=== PATIENT | male | born 1955 | race American Indian/Alaskan Native ===

== ENCOUNTER 2019-10-09 12:27 | Inpatient (IN) | payer MEDICARE ==
[2019-10-09] MEDS ORDERED: DEXTROSE 50% IN WATER (25GM) 50 ML SYRINGE IV PRN (15:31)
[2019-10-09] MEDS ORDERED: SIMPLE SYRUP 15 ML FEEDTUBE PRN ×2 (15:45)
[2019-10-09] MEDS ORDERED: SODIUM BICARBONATE 325 MG TAB FEEDTUBE PRN (15:45)
[2019-10-09] MEDS ORDERED: LIPASE 10,500/PROTEASE 25,000/AMYLASE 43,750 (UNITS) DR CAP FEEDTUBE PRN (15:45)
[2019-10-09] MEDS ORDERED: ACETAMINOPHEN 325 MG TAB FEEDTUBE PRN (15:50)
[2019-10-09] MEDS ORDERED: hydrALAZINE 20 MG/1 ML INJ IV PRN (15:50)
[2019-10-09] MEDS ORDERED: ALBUTEROL 2.5 MG/3 ML NEBU IH PRN (15:50)
--- NOTE | 2019-10-09 16:27 | History and Physical Report ---
History of Present Illness Date: 10/09/19 Date of admission: 10/09/2019 Chief Complaint: CVA History of present illness: 64-year-old male who presented to [facility] on August 11 with acute onset of left-sided weakness. 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 Alteplase was given on 08/11. He developed delayed cerebral edema and hemorrhagic conversion. CT head showed large right-sided MCA territory infarct with scattered hyperdensities and cerebral edema with midline shift on August 13. August 15 there is an increase to 7 mm from the previous [address] with new petechial hemorrhages. Neurosurgery was consulted and ultimately required a decompressive hemicraniectomy on August 22. He continued to have increased bleeding prompting aspirin to be held on August 25. Patient was transferred from the ICU to neurology general floor on August 27. MRI brain on August 30 showed evolving large right MCA infarct with hemorrhagic transformation. Stable appearing midline shift. Hematoma superficial to craniotomy in the right temporalis muscle. On 08/30 he underwent Ultrasound Doppler venous left upper extremity showed a nonocclusive deep vein thrombosis in the left axillary vein and a thrombus within the superficial basilic vein. Ultrasound Doppler venous left lower extremity showed chronic DVT of the left common femoral vein on 09/04 for which an IVC filter was placed on September 06. PEG was placed on September 10 due to poor oral intake and dysphasia. EKG and telemetry monitoring showed paroxysmal atrial fibrillation. TTE showed an ejection fraction of 50 to 55% with severely dilated left atrium and impaired left ventricle relaxation. Patient was tolerating a bolus tube feed diet of Nutren 1.5 max of 5 cans/day with free water flushes 100 mils before and after each feed if the patient ate less than 25% bolus 2 cans, 50% bolus 1 can, greater than 50% no bolus. Stroke labs at outside hospital A1c 7.1, TSH 1.375, total cholesterol 198, LDL 132, RPR nonreactive, INR 1.1. Patient was transition to Eliquis as a secondary stroke prevention and anticoagulation for atrial fibrillation. He was taken off of aspirin due to risk of bleeding prior to leaving the hospital and going to the senior care facility. The physicians at the hospital also made recommendation for considering a watchman device as an outpatient. 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 After the patient was stabilized he was transferred to subacute rehabilitation. Family visited our inpatient rehabilitation and was unhappy with his lack of progress at subacute and noted that he has been participating more with therapy but do not feel like he is getting the amount of therapy that he could truly benefit from. After discussion with the family as well as the facility and review of the past we opted to accept the patient to give him an opportunity to participate in a more intensive therapy schedule. Several discussions had with family on final disposition and ensuring that he would be going home regardless of how much recovery we were able to make. Patient was transferred to us from a subacute rehab where he has been since September 20. After the patient was medically stabilized they were transferred for further rehabilitation. All available medical records have been reviewed. Plan of care, prognosis, expectations, secondary stroke prevention, discharge planning was discussed with patient and family (2 daughters). Day prior to admission 48 minutes were spent reviewing all available records from the outside hospital as well as the senior care facility in preparation for transfer of the patient to acute inpatient rehabilitation. Past History Past Medical History: atrial fib, anemia, diabetes, DVT, hypertension, hyperlipidemia, stroke (Right MCA with hemorrhagic transformation, embolic), other (Dysphasia) Past Surgical History: hernia repair Social history: , lives with family, full code. denies: smoking, alcohol abuse, prescription drug abuse Family history: hypertension Medications and Allergies Allergies Allergy/AdvReac Type Severity Reaction Status Date / Time No Known Allergies Allergy Unverified 10/09/19 12:33 Active Meds: Active Medications Acetaminophen (Tylenol) 650 mg FEEDTUBE Q6H PRN PRN Reason: Non Cardiac Pain or Temp>100.5 Albuterol (Proventil) 2.5 mg IH Q4HRT PRN PRN Reason: Shortness Of Breath Amantadine HCl (Symmetrel) 100 mg FEEDTUBE BIDBL RHIANNON Amlodipine Besylate (Amlodipine) 10 mg FEEDTUBE QDAY RHIANNON Lipase/Protease/Amylase ([place] Dr 10,500 Unit) 1 each FEEDTUBE PRN PRN PRN Reason: For Clogged Feeding Tube Apixaban (Eliquis) 5 mg FEEDTUBE Q12HR RHIANNON; Protocol Atorvastatin Calcium (Lipitor) 80 mg FEEDTUBE QHS RHIANNON Bisacodyl (Dulcolax) 10 mg [place] QDAY PRN PRN Reason: Constipation Carvedilol (Coreg) 6.25 mg FEEDTUBE BID RHIANNON Dextrose (D50w (25gm) Syringe) 50 ml IV Q30MIN PRN; Protocol PRN Reason: Hypoglycemia Famotidine (Pepcid) 20 mg FEEDTUBE BID RHIANNON Hydralazine HCl (Apresoline) 10 mg IV Q4HR PRN PRN Reason: Hypertension Hydralazine HCl (Apresoline) 100 mg FEEDTUBE TID RHIANNON Insulin Glargine (Lantus) 10 units SUB-Q QHS RHIANNON Insulin Human Lispro (Humalog) 0 unit SUB-Q ACHS RHIANNON; Protocol Lisinopril (Zestril) 40 mg FEEDTUBE QDAY RHIANNON Melatonin (Melatonin) 5 mg PO QHS RHIANNON Mirtazapine (Remeron) 15 mg FEEDTUBE QHS RHIANNON Ondansetron HCl (Zofran Odt) 4 mg PO Q8H PRN PRN Reason: Nausea And Vomiting Polyethylene Glycol (Miralax 3350) 17 gm FEEDTUBE QDAY PRN PRN Reason: Constipation Simple Syrup (Simple Syrup) 15 ml FEEDTUBE PRN PRN PRN Reason: Hypoglycemia Simple Syrup (Simple Syrup) 30 ml FEEDTUBE PRN PRN PRN Reason: Hypoglycemia Sodium Bicarbonate (Sodium Bicarbonate) 325 mg FEEDTUBE PRN PRN PRN Reason: For Clogged Feeding Tube Tramadol HCl (Ultram) 50 mg FEEDTUBE Q6H PRN PRN Reason: Pain, Moderate (4-6) Review of Systems All systems: negative (ROS negative for 12 systems except as noted below with pertinent positives and negatives.) Constitutional: poor appetite Eyes: left: loss of vision (Chronic) Ears, nose, mouth and throat: dysphagia, no decreased hearing Cardiovascular: no chest pain, no palpitations, no rapid/irregular heart beat, no edema Respiratory: no cough, no shortness of breath Gastrointestinal: other (PEG tube), no abdominal pain, no nausea, no vomiting, no diarrhea, no constipation Musculoskeletal: limitation of motion, gait dysfunction Integumentary: no rash, no pruritis, no sores Neurological: parathesias, change in speech (slowed), balance difficulties, gait dysfunction, loss of vision, paralysis Psychiatric: change in sleep habits, disorientation (intermittent), no anxiety Exam - Exam Narrative exam: MUSCULOSKELETAL SPECIALTY EXAM CONSTITUTIONAL: Well developed, well nourished, appropriately groomed. LEFT hand dominant. LYMPHATIC: No appreciable abnormalities palpable in neck Head: Right craniectomy site sunken with mild dependent swelling at the base, soft RESPIRATORY: Clear to auscultation bilaterally, no increased work of breathing CARDIOVASCULAR: Regular Rate/ Rhythm, no swelling, edema or tenderness in BUE or BLE. Pulses palpable in all extremities. All extremities warm. GI: + bowel sounds, soft, NTTP, nondistended. PEG tube present INTEGUMENTARY: Normal, no lesion, rash, masses or bruising noted in extremities. MUSCULOSKELETAL: Left shoulder subluxation, otherwise BUE and BLE normal without defect, crepitus, subluxation, effusion, arthritic changes or TTP. R 4+/5 L 0/5 ROM decreased on left, normal on right Tone flaccid on left, normal on right NEURO: CN II : Right visual colmenares full to confrontation, left blind CN II, III : PERRL on the right CN III, IV, : EOMI on the right but right eye does preferentially veer towards the lateral aspect CN V : Facial sensation intact decreased on left CN VII : Slight left facial droop CN VIII : Hearing intact to finger rustle CN IX, X : Palate/uvula elevate midline, phonation normal CN XI : Left shoulder shrug absent CN XII : Tongue protrudes midline Sensation impaired on left with extinction, normal on right Reflexes 2+ on right and 3+ on left at biceps, brachioradialis and patella. Cl onus at the left ankle 4 beats. Coordination intact in right upper extremity no dysmetria noted, unable to test left upper extremity due to weakness. No tremor noted in 4 extremities. Naming and repetition intact. Follows 2 step commands. Aphasia not appreciated Dysarthria not appreciated Dysphagia present Neglect to left side with activity, right gaze preference. Does recognize the left and address it, just can not attend to it. POSTURE and GAIT: Sitting posture okay. Balance and gait deferred until seen with therapy. PSYCH: Alert, oriented x3, affect appears flattened. Insight appears mostly intact. - Labs CBC & Chem 7: 10/10/19 07:28 10/10/19 07:28 Assessment and Plan Assessment and plan: Patient was assessed and evaluated for Acute Inpatient Rehab Unit. Due to the patients above-mentioned medical complexity, along with decreased functional mobility and self care, this patient continues to require and be appropriate for a comprehensive, multidisciplinary [id number] rehabilitation program. These needs cannot be met in an outpatient or other less intensive setting. The patient would continue to benefit from skilled therapy intervention for at least 3 hours per day, five days a week, with techniques specific to the needs of the patient to improve function, activities of daily living, and reintegration into the community. The patient continues to require: -- OT to improve ROM, self-care, and learn use of adaptive equipment -- PT to improve strength and balance, functional transfers, and ambulation with energy conservation techniques to improve functional mobility -- SOAP BOILER to address cognitive deficits and swallowing ability -- 24 hour RN to ensure and prevent skin breakdown, promote progressive independence while ensuring safety, ensure education regarding medications, and incorporation of the rehabilitation at the bedside -- 24 hour Support Dba to coordinate this interdisciplinary program, and to manage/prevent complications as a result of the patients medical comorbidities. -Plan of care by day 4 -Weekly team conferences With such a program, there is a reasonable certainty that the goals individualized for this patient can be achieved within the specified length of stay. 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 Continue secondary stroke prevention (antithrombotic, statin (goal LDLC <70), BP control (goal less than 140/90), GLU control (goal A1c <7), and lifestyle modification). Monitor for recurrent stroke or post-stroke recrudescence. Continue neuromotor therapy as above. Family training when available. Monitor for post-stroke depression, cognitive deficits, seizure, dysphagia, aphasia, shoulder-hand syndrome, sensory deficits, spasticity, bowel/bladder deficits, sleep disturbance, vision deficits, pressure sores and DVT. Prognosis for recovery and secondary stroke prevention discussed with patient and family. Follow-up with neurology. No driving until cleared by neurologist. Paroxysmal atrial fibrillation: Continue rate control and anticoagulation. Adjust medications as needed. Monitor for palpitations, dyspnea, lightheadedness, chest pain, fatigue. EKG as needed. Diastolic dysfunction: Monitor for any exacerbation of diastolic dysfunction. Hypertension: Continue medications. Monitor blood pressure every 4 hours while awake. Adjust medications as needed for normotension and hold for hypotension. Diabetes type 2: Continue current diet. Monitor blood glucose before meals and at bedtime. Sliding scale insulin. Adjust medications as needed for normoglycemia. Skin checks per nursing to identify any new wounds. Left upper extremity and left lower extremity DVT: Continue Eliquis. Monitor for any signs of worsening condition. Patient does have a IVC filter installed as well. Dysphagia: Eating all meals and not taking any PEG tubes currently only thing through the PEG is medication. Continue current diet. SOAP BOILER to monitor and advance diet as able, and perform FEES, MBSS or e-stim as needed. Shoulder subluxation: Continue strengthening exercises for improvement of shoulder subluxation. Arm tray while in wheelchair. Prop the arm on pillows including hand for elevation while in bed. Consider kinesiotaping and/or e- stim. Cognition: Continue amantadine at breakfast as well as lunch. Patient was previously getting this every 12 hours we should see a little bit better tolerance for it scheduled appropriately. Monitor for improvement. Supportive care and therapy. Family involvement as available. Continue reminders throughout therapy and the day to ensure patient safety. Altered sensation on the left: Monitor for skin wounds. Improve patient's ability to self monitor placement of limbs to avoid injury. Medication as needed for painful paresthesias. Poor nutritional intake: Check nutrition labs including pre-albumin. Monitor oral intake and weights. Patient is on appetite stimulant, continue Remeron. Right craniectomy: Currently sunken with very slight CSF collection at the base of the craniectomy. Monitor for any changes in volume and notified neurosurgeon if this occurs. Helmet on anytime out of bed. When out of bed with helmet on need to monitor periodically for swelling. ADL dysfunction: OT will work on improving ability to perform ADLs (including assistive devices) to increase independence and decrease caregiver burden and improve functional transfers and mobility training. Difficulty walking: PT will work on gait training and proper use of assistive devices and advance as appropriate to use of stairs and outside ambulation on uneven surfaces. Unsteadiness on feet: PT will work on improving static and dynamic sitting and standing balance as well as proper use of assistive devices to decrease risk of falls. Abnormality of gait: PT will work to improve safety and efficiency of gait through neuromotor training and gait training along with instruction on proper use of assistive devices. Muscle weakness: PT & OT will work on strengthening exercises to improve functional strength including mixture of closed and open kinetic chain exercises. Debility: PT & OT will work on improving overall functional status to improve participation with ADLs, mobility and social involvement. Fatigue: PT & OT will work on improving endurance through aerobic exercises and therapeutic activity while monitoring patients tolerance for activity and vital signs as needed. DVT ppx: Eliquis for atrial fibrillation Pain: Continue physical modalities in therapy and pain medications as needed to achieve functional pain control. Sleep: Monitor and address as needed. Melatonin Bowel: Monitor and address as needed. Appetite: Monitor and address as needed. Mirtazapine Discharge planning: Pending therapy progress and care plan meeting. Will continue discussion with therapy team, SW, patient and family. Restrictions/ Precautions: Falls, craniectomy (helmet on when out of bed), low bed, decreased sensation on left WB status: FWB Functional Hx: ADLs: Independent Cognition: Independent Mobility: No AD Barriers to Discharge: Decreased mobility and ability to perform self care, balance deficits, weakness, craniectomy, left dominant hemiplegia, dysphagia Estimated Length of Stay: 1421 days Discharge Destination: Home with family POST ADMISSION PHYSICIAN EVALUATION I have examined the patient and find that functional status, medical condition and appropriateness for [facility] admission are essentially unchanged from those described in the preadmission screening. Will monitor for worsening neurologic function, excessive CSF collection, CSF leak, infection, dysphagia, shoulder- hand syndrome, shoulder subluxation, spasticity, left neglect, cognitive changes, DVT/PE, bowel and bladder complications and complications due to atrial fibrillation, hypertension, diabetes, and electrolyte abnormalities. Will attempt to avoid occurrence of these issues or treat them if they present themselves.
[2019-10-09] MEDS: APIXABAN 5 MG TAB FEEDTUBE SCH (22:15)
[2019-10-09] MEDS: FAMOTIDINE 20 MG TAB FEEDTUBE SCH (22:15)
[2019-10-09] MEDS: MELATONIN 5 MG TAB PO SCH (22:15)
[2019-10-09] MEDS: INSULIN GLARGINE 100 UNITS/ML SUB-Q SCH (22:16)
[2019-10-09] MEDS: carvediloL 6.25 MG TAB FEEDTUBE SCH (22:17)
[2019-10-09] MEDS: INSULIN LISPRO 100 UNIT/ML SUB-Q SCH ×2 (22:18→23:42)
[2019-10-09] MEDS: hydrALAZINE 100 MG TAB FEEDTUBE SCH (22:18)
[2019-10-09] MEDS: MIRTAZAPINE 15 MG TAB FEEDTUBE SCH (22:53)
[2019-10-10] MEDS: POLYETHYLENE GLYCOL 3350 17 GM POWDER FEEDTUBE PRN (04:51)
[2019-10-10] MEDS: INSULIN LISPRO 100 UNIT/ML SUB-Q SCH ×4 (07:59→23:03)
[2019-10-10 08:49] LABS: Basophils % (Auto) 0.6 % (0.0-1.8); Eosinophils # (Auto) 0.5 K/mm3 (0.0-0.4); Eosinophils % (Auto) 7.9 % (0.0-4.3); Hematocrit 38.7 % (35.5-45.6); Hemoglobin 12.6 gm/dl (11.8-15.2); Lymphocytes # (Auto) 1.4 K/mm3 (1.2-5.4); Lymphocytes % (Auto) 21.8 % (13.4-35.0); Mean Corpuscular HGB Conc 32 % (32-34); Mean Corpuscular Volume 76 fl (84-94); Monocytes # (Auto) 0.6 K/mm3 (0.0-0.8); Monocytes % (Auto) 10.3 % (0.0-7.3); Platelet Count 224 K/mm3 (140-440); Red Blood Count 5.07 M/mm3 (3.65-5.03)
[2019-10-10 09:05] LABS: Alanine Aminotransferase 15 units/L (7-56); Albumin 3.4 g/dL (3.9-5); BUN/Creatinine Ratio 16; Blood Urea Nitrogen 16 mg/dL (9-20); Calcium 9.6 mg/dL (8.4-10.2); Hemolysis Index 1
[2019-10-10 09:08] LABS: Prealbumin 0.211 g/L (0.200-0.400)
[2019-10-10] MEDS: AMANTADINE FEEDTUBE SCH ×2 (09:12→13:50)
[2019-10-10] MEDS: hydrALAZINE 100 MG TAB FEEDTUBE SCH ×3 (09:50→23:05)
[2019-10-10] MEDS: carvediloL 6.25 MG TAB FEEDTUBE SCH ×2 (10:01→23:00)
[2019-10-10] MEDS: LISINOPRIL 40 MG TAB FEEDTUBE SCH (11:00)
[2019-10-10] MEDS: FAMOTIDINE 20 MG TAB FEEDTUBE SCH ×2 (11:00→22:59)
[2019-10-10] MEDS: APIXABAN 5 MG TAB FEEDTUBE SCH ×2 (11:30→23:00)
[2019-10-10] MEDS: amLODIPine 10 MG TAB FEEDTUBE SCH (11:55)
--- NOTE | 2019-10-10 16:14 | Progress Note ---
Subjective Date of service: 10/10/19 Principal diagnosis: CVA Interval history: 64-year-old male who presented to [facility] on August 11 with acute onset of left-sided weakness. 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 Alteplase was given on 08/11. He developed delayed cerebral edema and hemorrhagic conversion. CT head showed large right-sided MCA territory infarct with scattered hyperdensities and cerebral edema with midline shift on August 13. August 15 there is an increase to 7 mm from the previous [address] with new petechial hemorrhages. Neurosurgery was consulted and ultimately required a decompressive hemicraniectomy on August 22. He continued to have increased bleeding prompting aspirin to be held on August 25. Patient was transferred from the ICU to neurology general floor on August 27. MRI brain on August 30 showed evolving large right MCA infarct with hemorrhagic transformation. Stable appearing midline shift. Hematoma superficial to craniotomy in the right temporalis muscle. On 08/30 he underwent Ultrasound Doppler venous left upper extremity showed a nonocclusive deep vein thrombosis in the left axillary vein and a thrombus within the superficial basilic vein. Ultrasound Doppler venous left lower extremity showed chronic DVT of the left common femoral vein on 09/04 for which an IVC filter was placed on September 06. PEG was placed on September 10 due to poor oral intake and dysphasia. EKG and telemetry monitoring showed paroxysmal atrial fibrillation. TTE showed an ejection fraction of 50 to 55% with severely dilated left atrium and impaired left ventricle relaxation. Patient was tolerating a bolus tube feed diet of Nutren 1.5 max of 5 cans/day with free water flushes 100 mils before and after each feed if the patient ate less than 25% bolus 2 cans, 50% bolus 1 can, greater than 50% no bolus. Stroke labs at outside hospital A1c 7.1, TSH 1.375, total cholesterol 198, LDL 132, RPR nonreactive, INR 1.1. Patient was transition to Eliquis as a secondary stroke prevention and anticoagulation for atrial fibrillation. He was taken off of aspirin due to risk of bleeding prior to leaving the hospital and going to the snf facility. The physicians at the hospital also made recommendation for considering a watchman device as an outpatient. 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 After the patient was stabilized he was transferred to subacute rehabilitation. Family visited our inpatient rehabilitation and was unhappy with his lack of progress at subacute and noted that he has been participating more with therapy but do not feel like he is getting the amount of therapy that he could truly benefit from. After discussion with the family as well as the facility and review of the past we opted to accept the patient to give him an opportunity to participate in a more intensive therapy schedule. Several discussions had with family on final disposition and ensuring that he would be going home regardless of how much recovery we were able to make. Patient was transferred to us from a subacute rehab where he has been since September 20. After the patient was medically stabilized they were transferred for further rehabilitation. All available medical records have been reviewed. Plan of care, prognosis, expectations, secondary stroke prevention, discharge planning was discussed with patient and family (2 daughters). Day prior to admission 48 minutes were spent reviewing all available records from the outside hospital as well as the snf facility in preparation for transfer of the patient to acute inpatient rehabilitation. Interval history: Patient is participating in therapy and making reasonable progress. Taking rest breaks as needed. +BM. Denies pain, palpitations, dyspnea, cough, N/V, or joint pain. CVA: Patient making slow progress with therapy. Was able to tolerate sitting up for prolonged period yesterday however did push back on this. Continue to monitor for worsening neurologic function. Continue secondary stroke prevention. No change in hemiplegia, no spasticity, no change in dysphagia. Hemicraniectomy: Sunken, helmet on when out of bed, well-healed continue to monitor Paroxysmal atrial fibrillation: Denies palpitations, rate controlled, tolerating anticoagulation. Continue to monitor Hypertension: Blood pressures been in a good range. Continue to monitor Diabetes: Glucose checks have been less than 200. Continue to monitor and adjust insulin as needed based on oral intake. Anemia: Microcytic, folate decreased, replace folate iron and vitamin C and monitor for improvement. Nutrition: Patient is eating fairly well. Nutrition put in tube feeding orders even though I DC'd them because the patient is eating. We will continue to monitor and continue appetite stimulant. Cognition: Continue amantadine and monitor for improvement. All records, vitals, labs and medications were reviewed. No other issues per patient, nursing or therapy. Patient discussed in team conference. Fairly decent for his first day, little resistant to performing therapy at least verbally. In the end he did participate and we will continue to push for as much progress as we can get. Discussed with family and the patient on day of admission that since we are 2 months out from the initial CVA that we may not see a huge improvement in his return of function on the left side however we will push to get him as independent as possible for transfers and ADLs in order to reduce caregiver burden once they take him home. Length of stay will vary depending upon his improvement and recovery. Looking at 14 to 21 days currently Objective - Exam Narrative Exam: MUSCULOSKELETAL SPECIALTY EXAM CONSTITUTIONAL: Well developed, well nourished, appropriately groomed. LEFT hand dominant. Head: Right craniectomy site sunken with mild dependent swelling at the base, soft RESPIRATORY: Clear to auscultation bilaterally, no increased work of breathing CARDIOVASCULAR: Regular Rate/ Rhythm, no swelling, edema or tenderness in BUE or BLE. All extremities warm. GI: + bowel sounds, soft, NTTP, nondistended. PEG tube present INTEGUMENTARY: Normal, no lesion, rash, masses or bruising noted in extremities. MUSCULOSKELETAL: Left shoulder subluxation, otherwise BUE and BLE normal without defect, crepitus, subluxation, effusion, arthritic changes or TTP. R 4+/5 L 0/5 ROM decreased on left, normal on right Tone flaccid on left, normal on right NEURO: CN II : Right visual colmenares full to confrontation, left blind CN III, IV, : EOMI on the right but right eye does preferentially veer towards the lateral aspect CN V : Facial sensation intact decreased on left CN VII : Slight left facial droop CN XI : Left shoulder shrug absent Sensation impaired on left with extinction, normal on right No tremor noted in 4 extremities. Naming and repetition intact. Follows 2 step commands. Aphasia not appreciated Dysarthria not appreciated Dysphagia present Neglect to left side with activity, right gaze preference. Does recognize the left and address it, just can not attend to it. POSTURE and GAIT: Sitting posture okay. Balance and gait deferred until seen with therapy. PSYCH: Alert, oriented x3, affect appears flattened. Insight appears mostly intact. - Constitutional Vitals: Vital Signs - 12hr 10/10/19 10/10/19 10/10/19 04:54 04:55 07:16 Temperature 98.5 F 98 F Pulse Rate 68 67 72 Respiratory 18 18 Rate Blood Pressure 135/73 Blood Pressure 167/86 [Left] O2 Sat by Pulse 97 97 95 Oximetry 10/10/19 10/10/19 10/10/19 10:30 15:00 15:14 Temperature 98.4 F 97.0 F L Pulse Rate 83 Respiratory 16 22 Rate Blood Pressure 148/81 Blood Pressure 132/75 148/81 [Left] O2 Sat by Pulse 96 Oximetry - Allied health notes Allied health notes reviewed: nursing, PT, ST, OT - Labs CBC & Chem 7: 10/10/19 07:28 10/10/19 07:28 Labs: Laboratory Results - last 72 hr 10/09/19 10/10/19 10/10/19 21:20 07:14 07:28 WBC 6.2 RBC 5.07 H Hgb 12.6 Hct 38.7 MCV 76 L MCH 25 L MCHC 32 RDW 16.0 H Plt Count 224 Lymph % (Auto) 21.8 Harding % (Auto) 10.3 H Eos % (Auto) 7.9 H Baso % (Auto) 0.6 Lymph # 1.4 Harding # 0.6 Eos # 0.5 H Baso # 0.0 Seg Neutrophils % 59.4 Seg Neutrophils # 3.7 Sodium Potassium Chloride Carbon Dioxide Anion Gap BUN Creatinine Estimated GFR BUN/Creatinine Ratio Glucose POC Glucose 125 H 152 H Calcium Phosphorus Magnesium Iron TIBC Ferritin Total Bilirubin AST ALT Alkaline Phosphatase Total Protein Albumin Albumin/Globulin Ratio Prealbumin Vitamin B12 Folate 10/10/19 10/10/19 10/10/19 07:28 07:28 07:28 WBC RBC Hgb Hct MCV MCH MCHC RDW Plt Count Lymph % (Auto) Harding % (Auto) Eos % (Auto) Baso % (Auto) Lymph # Harding # Eos # Baso # Seg Neutrophils % Seg Neutrophils # Sodium 139 Potassium 3.8 Chloride 98.3 Carbon Dioxide 24 Anion Gap 21 BUN 16 Creatinine 1.0 Estimated GFR > 60 BUN/Creatinine Ratio 16 Glucose 149 H POC Glucose Calcium 9.6 Phosphorus 4.30 Magnesium 1.90 Iron 36 L TIBC 206 L Ferritin 101.3 Total Bilirubin 0.40 AST 9 ALT 15 Alkaline Phosphatase 69 Total Protein 6.8 Albumin 3.4 L Albumin/Globulin Ratio 1.0 Prealbumin 0.211 Vitamin B12 Folate 10/10/19 10/10/19 10/10/19 07:28 07:28 11:44 WBC RBC Hgb Hct MCV MCH MCHC RDW Plt Count Lymph % (Auto) Harding % (Auto) Eos % (Auto) Baso % (Auto) Lymph # Harding # Eos # Baso # Seg Neutrophils % Seg Neutrophils # Sodium Potassium Chloride Carbon Dioxide Anion Gap BUN Creatinine Estimated GFR BUN/Creatinine Ratio Glucose POC Glucose 183 H Calcium Phosphorus Magnesium Iron TIBC Ferritin Total Bilirubin AST ALT Alkaline Phosphatase Total Protein Albumin Albumin/Globulin Ratio Prealbumin Vitamin B12 945.1 H Folate 6.66 L Assessment and Plan CVA, MCA, embolic with hemorrhagic conversion left dominant hemiplegia: Flaccid left side. Continue secondary stroke prevention (antithrombotic, statin (goal LDLC <70), BP control (goal less than 140/90), GLU control (goal A1c <7), and lifestyle modification). Monitor for recurrent stroke or post-stroke recrudescence. Continue neuromotor therapy as above. Family training when available. Monitor for post-stroke depression, cognitive deficits, seizure, dysphagia, aphasia, shoulder-hand syndrome, sensory deficits, spasticity, bowel/bladder deficits, sleep disturbance, vision deficits, pressure sores and DVT. Prognosis for recovery and secondary stroke prevention discussed with patient and family. Follow-up with neurology. No driving until cleared by neurologist. Paroxysmal atrial fibrillation: Continue rate control and anticoagulation. Adjust medications as needed. Monitor for palpitations, dyspnea, lighthea dedness, chest pain, fatigue. EKG as needed. Diastolic dysfunction: Monitor for any exacerbation of diastolic dysfunction. Hypertension: Continue medications. Monitor blood pressure every 4 hours while awake. Adjust medications as needed for normotension and hold for hypotension. Diabetes type 2: Continue current diet. Monitor blood glucose before meals and at bedtime. Sliding scale insulin. Adjust medications as needed for normoglycemia. Skin checks per nursing to identify any new wounds. Left upper extremity and left lower extremity DVT: Continue Eliquis. Monitor for any signs of worsening condition. Patient does have a IVC filter installed as well. Dysphagia: Eating all meals and not taking any PEG tubes currently only thing through the PEG is medication. Continue current diet. SHAPE HAND to monitor and advance diet as able, and perform FEES, MBSS or e-stim as needed. Shoulder subluxation: Continue strengthening exercises for improvement of shoulder subluxation. Arm tray while in wheelchair. Prop the arm on pillows including hand for elevation while in bed. Consider kinesiotaping and/or e- stim. Anemia: Microcytic. Replace iron, folate, vitamin C. Cognition: Continue amantadine at breakfast as well as lunch. Patient was previously getting this every 12 hours we should see a little bit better tolerance for it scheduled appropriately. Monitor for improvement. Supportive care and therapy. Family involvement as available. Continue reminders throughout therapy and the day to ensure patient safety. Altered sensation on the left: Monitor for skin wounds. Improve patient's ability to self monitor placement of limbs to avoid injury. Medication as needed for painful paresthesias. Poor nutritional intake: Check nutrition labs including pre-albumin. Monitor oral intake and weights. Patient is on appetite stimulant, continue Remeron. Right craniectomy: Currently sunken with very slight CSF collection at the base of the craniectomy. Monitor for any changes in volume and notified neurosurgeon if this occurs. Helmet on anytime out of bed. When out of bed with helmet on need to monitor periodically for swelling. ADL dysfunction: OT will work on improving ability to perform ADLs (including assistive devices) to increase independence and decrease caregiver burden and improve functional transfers and mobility training. Difficulty walking: PT will work on gait training and proper use of assistive devices and advance as appropriate to use of stairs and outside ambulation on uneven surfaces. Unsteadiness on feet: PT will work on improving static and dynamic sitting and standing balance as well as proper use of assistive devices to decrease risk of falls. Abnormality of gait: PT will work to improve safety and efficiency of gait through neuromotor training and gait training along with instruction on proper use of assistive devices. Muscle weakness: PT & OT will work on strengthening exercises to improve functional strength including mixture of closed and open kinetic chain exercises. Debility: PT & OT will work on improving overall functional status to improve participation with ADLs, mobility and social involvement. Fatigue: PT & OT will work on improving endurance through aerobic exercises and therapeutic activity while monitoring patients tolerance for activity and vital signs as needed. DVT ppx: Eliquis for atrial fibrillation Pain: Continue physical modalities in therapy and pain medications as needed to achieve functional pain control. Sleep: Monitor and address as needed. Melatonin Bowel: Monitor and address as needed. Appetite: Monitor and address as needed. Mirtazapine Discharge planning: Pending therapy progress and care plan meeting. Will continue discussion with therapy team, SW, patient and family. Restrictions/ Precautions: Falls, craniectomy (helmet on when out of bed), low bed, decreased sensation on left WB status: FWB Functional Hx: ADLs: Independent Cognition: Independent Mobility: No AD Barriers to Discharge: Decreased mobility and ability to perform self care, balance deficits, weakness, craniectomy, left dominant hemiplegia, dysphagia Estimated Length of Stay: 1421 days Discharge Destination: Home with family
[2019-10-10] MEDS: MIRTAZAPINE 15 MG TAB FEEDTUBE SCH (22:59)
[2019-10-10] MEDS: MELATONIN 5 MG TAB PO SCH (22:59)
[2019-10-10] MEDS: FERROUS SULFATE 325 MG TAB PO SCH (22:59)
[2019-10-10] MEDS: ASCORBIC ACID 500 MG TAB PO SCH (22:59)
[2019-10-10] MEDS: INSULIN GLARGINE 100 UNITS/ML SUB-Q SCH (23:01)
[2019-10-11] MEDS: INSULIN LISPRO 100 UNIT/ML SUB-Q SCH ×4 (08:35→21:59)
[2019-10-11] MEDS: ASCORBIC ACID 500 MG TAB PO SCH ×2 (08:46→21:57)
[2019-10-11] MEDS: carvediloL 6.25 MG TAB FEEDTUBE SCH ×2 (08:46→22:25)
[2019-10-11] MEDS: FERROUS SULFATE 325 MG TAB PO SCH ×2 (08:46→21:57)
[2019-10-11] MEDS: amLODIPine 10 MG TAB FEEDTUBE SCH (08:46)
[2019-10-11] MEDS: APIXABAN 5 MG TAB FEEDTUBE SCH ×3 (08:47→21:57)
[2019-10-11] MEDS: FAMOTIDINE 20 MG TAB FEEDTUBE SCH ×2 (08:47→21:57)
[2019-10-11] MEDS: hydrALAZINE 100 MG TAB FEEDTUBE SCH ×3 (08:47→22:25)
[2019-10-11] MEDS: AMANTADINE FEEDTUBE SCH ×2 (08:47→13:33)
[2019-10-11] MEDS: FOLIC ACID 1 MG TAB PO SCH (08:47)
[2019-10-11] MEDS: LISINOPRIL 40 MG TAB FEEDTUBE SCH (08:47)
--- NOTE | 2019-10-11 11:25 | Progress Note ---
Subjective Date of service: 10/11/19 Principal diagnosis: CVA Interval history: 64-year-old male who presented to [facility] on August 11 with acute onset of left-sided weakness. 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 Alteplase was given on 08/11. He developed delayed cerebral edema and hemorrhagic conversion. CT head showed large right-sided MCA territory infarct with scattered hyperdensities and cerebral edema with midline shift on August 13. August 15 there is an increase to 7 mm from the previous [address] with new petechial hemorrhages. Neurosurgery was consulted and ultimately required a decompressive hemicraniectomy on August 22. He continued to have increased bleeding prompting aspirin to be held on August 25. Patient was transferred from the ICU to neurology general floor on August 27. MRI brain on August 30 showed evolving large right MCA infarct with hemorrhagic transformation. Stable appearing midline shift. Hematoma superficial to craniotomy in the right temporalis muscle. On 08/30 he underwent Ultrasound Doppler venous left upper extremity showed a nonocclusive deep vein thrombosis in the left axillary vein and a thrombus within the superficial basilic vein. Ultrasound Doppler venous left lower extremity showed chronic DVT of the left common femoral vein on 09/04 for which an IVC filter was placed on September 06. PEG was placed on September 10 due to poor oral intake and dysphasia. EKG and telemetry monitoring showed paroxysmal atrial fibrillation. TTE showed an ejection fraction of 50 to 55% with severely dilated left atrium and impaired left ventricle relaxation. Patient was tolerating a bolus tube feed diet of Nutren 1.5 max of 5 cans/day with free water flushes 100 mils before and after each feed if the patient ate less than 25% bolus 2 cans, 50% bolus 1 can, greater than 50% no bolus. Stroke labs at outside hospital A1c 7.1, TSH 1.375, total cholesterol 198, LDL 132, RPR nonreactive, INR 1.1. Patient was transition to Eliquis as a secondary stroke prevention and anticoagulation for atrial fibrillation. He was taken off of aspirin due to risk of bleeding prior to leaving the hospital and going to the halfway facility. The physicians at the hospital also made recommendation for considering a watchman device as an outpatient. 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 After the patient was stabilized he was transferred to subacute rehabilitation. Family visited our inpatient rehabilitation and was unhappy with his lack of progress at subacute and noted that he has been participating more with therapy but do not feel like he is getting the amount of therapy that he could truly benefit from. After discussion with the family as well as the facility and review of the past we opted to accept the patient to give him an opportunity to participate in a more intensive therapy schedule. Several discussions had with family on final disposition and ensuring that he would be going home regardless of how much recovery we were able to make. Patient was transferred to us from a subacute rehab where he has been since September 20. After the patient was medically stabilized they were transferred for further rehabilitation. All available medical records have been reviewed. Plan of care, prognosis, expectations, secondary stroke prevention, discharge planning was discussed with patient and family (2 daughters). Day prior to admission 48 minutes were spent reviewing all available records from the outside hospital as well as the halfway facility in preparation for transfer of the patient to acute inpatient rehabilitation. Interval history: Patient is participating in therapy and making reasonable progress. Taking rest breaks as needed. +BM. Denies pain, palpitations, dyspnea, cough, N/V, or joint pain. CVA: Patient making progress with therapy. Continue to monitor for worsening neurologic function. Continue secondary stroke prevention. No change in hemiplegia, no spasticity, no change in dysphagia. Hemicraniectomy: Sunken, helmet on when out of bed, well-healed continue to monitor Paroxysmal atrial fibrillation: Denies palpitations, rate controlled, tolerating anticoagulation. Continue to monitor Hypertension: Blood pressures been in a good range. Continue to monitor Diabetes: Glucose checks have been less than 200. Continue to monitor and adjust insulin as needed based on oral intake. Anemia: Hemoglobin level has normalized, however he is still microcytic, folate decreased, replace folate iron and vitamin C and monitor for improvement. Nutrition: Patient is eating fairly well. We will continue to monitor and continue appetite stimulant. Cognition: Continue amantadine and monitor for improvement. All records, vitals, labs and medications were reviewed. No other issues per patient, nursing or therapy. Objective - Exam Narrative Exam: MUSCULOSKELETAL SPECIALTY EXAM CONSTITUTIONAL: Well developed, well nourished, appropriately groomed. LEFT hand dominant. Head: Right craniectomy site sunken with mild dependent swelling at the base, soft RESPIRATORY: Clear to auscultation bilaterally, no increased work of breathing CARDIOVASCULAR: Regular Rate/ Rhythm, no swelling, edema or tenderness in BUE or BLE. All extremities warm. GI: + bowel sounds, soft, NTTP, nondistended. PEG tube present INTEGUMENTARY: Normal, no lesion, rash, masses or bruising noted in extremities. MUSCULOSKELETAL: Left shoulder subluxation, otherwise BUE and BLE normal without defect, crepitus, subluxation, effusion, arthritic changes or TTP. R 4+/5 L 0/5 ROM decreased on left, normal on right Tone flaccid on left, normal on right NEURO: CN II : Right visual colmenares full to confrontation, left blind CN III, IV, : EOMI on the right but right eye does preferentially veer towards the lateral aspect CN V : Facial sensation intact decreased on left CN VII : Slight left facial droop CN XI : Left shoulder shrug absent Sensation impaired on left with extinction, normal on right No tremor noted in 4 extremities. Naming and repetition intact. Follows 2 step commands. Aphasia not appreciated Dysarthria not appreciated Dysphagia present Neglect to left side with activity, right gaze preference. Does recognize the left and address it, just can not attend to it. POSTURE and GAIT: Sitting posture okay. Balance and gait deferred until seen with therapy. PSYCH: Alert, oriented x3, affect appears flattened. Insight appears mostly intact. - Constitutional Vitals: Vital Signs - 12hr 10/11/19 10/11/19 10/11/19 00:21 05:05 07:01 Temperature 98.8 F 98.5 F 98.0 F Pulse Rate 75 70 65 Respiratory 17 17 16 Rate Blood Pressure 156/81 144/75 153/83 O2 Sat by Pulse 96 96 97 Oximetry 10/11/19 09:21 Temperature Pulse Rate Respiratory Rate Blood Pressure O2 Sat by Pulse 97 Oximetry - Allied health notes Allied health notes reviewed: nursing, PT, ST, OT FIMS assessment as documented by PT/OT/ST: Dressing-Upper body Upper Body Dressing Device Product Marketing Specialist Patient retrieves clothing No items: Patient applies/removes UE No prosthesis or orthosis: - Labs CBC & Chem 7: 10/10/19 07:28 10/10/19 07:28 Labs: Laboratory Results - last 72 hr 10/09/19 10/10/19 10/10/19 21:20 07:14 07:28 WBC 6.2 RBC 5.07 H Hgb 12.6 Hct 38.7 MCV 76 L MCH 25 L MCHC 32 RDW 16.0 H Plt Count 224 Lymph % (Auto) 21.8 Bee % (Auto) 10.3 H Eos % (Auto) 7.9 H Baso % (Auto) 0.6 Lymph # 1.4 Bee # 0.6 Eos # 0.5 H Baso # 0.0 Seg Neutrophils % 59.4 Seg Neutrophils # 3.7 Sodium Potassium Chloride Carbon Dioxide Anion Gap BUN Creatinine Estimated GFR BUN/Creatinine Ratio Glucose POC Glucose 125 H 152 H Calcium Phosphorus Magnesium Iron TIBC Ferritin Total Bilirubin AST ALT Alkaline Phosphatase Total Protein Albumin Albumin/Globulin Ratio Prealbumin Vitamin B12 Folate 10/10/19 10/10/19 10/10/19 07:28 07:28 07:28 WBC RBC Hgb Hct MCV MCH MCHC RDW Plt Count Lymph % (Auto) Bee % (Auto) Eos % (Auto) Baso % (Auto) Lymph # Bee # Eos # Baso # Seg Neutrophils % Seg Neutrophils # Sodium 139 Potassium 3.8 Chloride 98.3 Carbon Dioxide 24 Anion Gap 21 BUN 16 Creatinine 1.0 Estimated GFR > 60 BUN/Creatinine Ratio 16 Glucose 149 H POC Glucose Calcium 9.6 Phosphorus 4.30 Magnesium 1.90 Iron 36 L TIBC 206 L Ferritin 101.3 Total Bilirubin 0.40 AST 9 ALT 15 Alkaline Phosphatase 69 Total Protein 6.8 Albumin 3.4 L Albumin/Globulin Ratio 1.0 Prealbumin 0.211 Vitamin B12 Folate 10/10/19 10/10/19 10/10/19 07:28 07:28 11:44 WBC RBC Hgb Hct MCV MCH MCHC RDW Plt Count Lymph % (Auto) Bee % (Auto) Eos % (Auto) Baso % (Auto) Lymph # Bee # Eos # Baso # Seg Neutrophils % Seg Neutrophils # Sodium Potassium Chloride Carbon Dioxide Anion Gap BUN Creatinine Estimated GFR BUN/Creatinine Ratio Glucose POC Glucose 183 H Calcium Phosphorus Magnesium Iron TIBC Ferritin Total Bilirubin AST ALT Alkaline Phosphatase Total Protein Albumin Albumin/Globulin Ratio Prealbumin Vitamin B12 945.1 H Folate 6.66 L 10/10/19 10/10/19 10/11/19 16:29 21:31 07:14 WBC RBC Hgb Hct MCV MCH MCHC RDW Plt Count Lymph % (Auto) Bee % (Auto) Eos % (Auto) Baso % (Auto) Lymph # Bee # Eos # Baso # Seg Neutrophils % Seg Neutrophils # Sodium Potassium Chloride Carbon Dioxide Anion Gap BUN Creatinine Estimated GFR BUN/Creatinine Ratio Glucose POC Glucose 185 H 144 H 109 H Calcium Phosphorus Magnesium Iron TIBC Ferritin Total Bilirubin AST ALT Alkaline Phosphatase Total Protein Albumin Albumin/Globulin Ratio Prealbumin Vitamin B12 Folate Assessment and Plan CVA, MCA, embolic with hemorrhagic conversion left dominant hemiplegia: Flaccid left side. Continue secondary stroke prevention (antithrombotic, statin (goal LDLC <70), BP control (goal less than 140/90), GLU control (goal A1c <7), and lifestyle modification). Monitor for recurrent stroke or post-stroke recrudescence. Continue neuromotor therapy as above. Family training when available. Monitor for post-stroke depression, cognitive deficits, seizure, dysphagia, aphasia, shoulder-hand syndrome, sensory deficits, spasticity, bowel/bladder deficits, sleep disturbance, vision deficits, pressure sores and DVT. Prognosis for recovery and secondary stroke prevention discussed with patient and family. Follow-up with neurology. No driving until cleared by neurologist. Paroxysmal atrial fibrillation: Continue rate control and anticoagulation. Adjust medications as needed. Monitor for palpitations, dyspnea, lightheadedness, chest pain, fatigue. EKG as needed. Diastolic dysfunction: Monitor for any exacerbation of diastolic dysfunction. Hypertension: Continue medications. Monitor blood pressure every 4 hours while awake. Adjust medications as needed for normotension and hold for hypotension. Diabetes type 2: Continue current diet. Monitor blood glucose before meals and at bedtime. Sliding scale insulin. Adjust medications as needed for normoglycemia. Skin checks per nursing to identify any new wounds. Left upper extremity and left lower extremity DVT: Continue Eliquis. Monitor for any signs of worsening condition. Patient does have a IVC filter installed as well. Dysphagia: Eating all meals and not taking any PEG tubes currently only thing through the PEG is medication. Continue current diet. SUPERVISOR FILTRATION to monitor and advance diet as able, and perform FEES, MBSS or e-stim as needed. Shoulder subluxation: Continue strengthening exercises for improvement of adriane ulder subluxation. Arm tray while in wheelchair. Prop the arm on pillows including hand for elevation while in bed. Consider kinesiotaping and/or e- stim. Anemia: Microcytic. Replace iron, folate, vitamin C. monitor Cognition: Continue amantadine at breakfast as well as lunch. Patient was prev iously getting this every 12 hours we should see a little bit better tolerance for it scheduled appropriately. Monitor for improvement. Supportive care and therapy. Family involvement as available. Continue reminders throughout therapy and the day to ensure patient safety. Altered sensation on the left: Monitor for skin wounds. Improve patient's ability to self monitor placement of limbs to avoid injury. Medication as needed for painful paresthesias. Poor nutritional intake: Check nutrition labs including pre-albumin. Monitor oral intake and weights. Patient is on appetite stimulant, continue Remeron. Right craniectomy: Currently sunken with very slight CSF collection at the base of the craniectomy. Monitor for any changes in volume and notified neurosurgeon if this occurs. Helmet on anytime out of bed. When out of bed with helmet on need to monitor periodically for swelling. ADL dysfunction: OT will work on improving ability to perform ADLs (including assistive devices) to increase independence and decrease caregiver burden and improve functional transfers and mobility training. Difficulty walking: PT will work on gait training and proper use of assistive devices and advance as appropriate to use of stairs and outside ambulation on uneven surfaces. Unsteadiness on feet: PT will work on improving static and dynamic sitting and standing balance as well as proper use of assistive devices to decrease risk of falls. Abnormality of gait: PT will work to improve safety and efficiency of gait through neuromotor training and gait training along with instruction on proper use of assistive devices. Muscle weakness: PT & OT will work on strengthening exercises to improve functional strength including mixture of closed and open kinetic chain exercises. Debility: PT & OT will work on improving overall functional status to improve participation with ADLs, mobility and social involvement. Fatigue: PT & OT will work on improving endurance through aerobic exercises and therapeutic activity while monitoring patients tolerance for activity and vital signs as needed. DVT ppx: Eliquis for atrial fibrillation Pain: Continue physical modalities in therapy and pain medications as needed to achieve functional pain control. Sleep: Monitor and address as needed. Melatonin Bowel: Monitor and address as needed. Appetite: Monitor and address as needed. Mirtazapine Discharge planning: Pending therapy progress and care plan meeting. Will continue discussion with therapy team, SW, patient and family. Restrictions/ Precautions: Falls, craniectomy (helmet on when out of bed), low bed, decreased sensation on left WB status: FWB Functional Hx: ADLs: Independent Cognition: Independent Mobility: No AD Barriers to Discharge: Decreased mobility and ability to perform self care, balance deficits, weakness, craniectomy, left dominant hemiplegia, dysphagia Estimated Length of Stay: 1421 days Discharge Destination: Home with family
[2019-10-11] MEDS: MIRTAZAPINE 15 MG TAB FEEDTUBE SCH (21:57)
[2019-10-11] MEDS: MELATONIN 5 MG TAB PO SCH (21:57)
[2019-10-11] MEDS: INSULIN GLARGINE 100 UNITS/ML SUB-Q SCH (21:58)
[2019-10-12] MEDS: INSULIN LISPRO 100 UNIT/ML SUB-Q SCH ×4 (09:25→21:48)
[2019-10-12] MEDS: carvediloL 6.25 MG TAB FEEDTUBE SCH ×2 (09:26→21:31)
[2019-10-12] MEDS: ASCORBIC ACID 500 MG TAB PO SCH ×2 (09:27→21:31)
[2019-10-12] MEDS: FERROUS SULFATE 325 MG TAB PO SCH ×2 (09:27→21:31)
[2019-10-12] MEDS: LISINOPRIL 40 MG TAB FEEDTUBE SCH (09:27)
[2019-10-12] MEDS: amLODIPine 10 MG TAB FEEDTUBE SCH (09:27)
[2019-10-12] MEDS: FAMOTIDINE 20 MG TAB FEEDTUBE SCH ×2 (09:28→21:31)
[2019-10-12] MEDS: hydrALAZINE 100 MG TAB FEEDTUBE SCH ×3 (09:28→21:31)
[2019-10-12] MEDS: APIXABAN 5 MG TAB FEEDTUBE SCH ×2 (09:28→21:31)
[2019-10-12] MEDS: FOLIC ACID 1 MG TAB PO SCH (09:28)
[2019-10-12] MEDS: AMANTADINE FEEDTUBE SCH ×2 (09:29→12:03)
--- NOTE | 2019-10-12 19:18 | IRU Plan of Care ---
Interdisciplinary Plan of Care - IP IRU INTERDISCIPLINARY PLAN: [facility] Inpatient Rehab Unit Plan of Care IRU Interdisciplinary Care Plan Start: 10/09/19 19:18 Freq: Admission then PRN Status: Active Protocol: Document 10/12/19 16:08 TH (Rec: 10/12/19 16:17 TH [id number]) Interdisciplinary Problem List Interdisciplinary Problem List Interdisciplinary Problem List Impaired Eating/Swallowing, Query Text:Answers will Trigger Problems Impaired Bathing/Grooming, and Outcomes on Worklist. Impaired Dressing,Impaired Mobility,Impaired Transfers, Impaired Bladder/Bowel Management,Impaired Toileting, Impaired Comprehension, Impaired Expression,Impaired Problem Solving,Knowledge Deficits,Discharge Concerns, Impaired Safety,Diabetes Education IRU Interdisciplinary Care Plan Therapy Services Therapy Services Will Include: Physical Therapy,Occupational Query Text:Patient will be seen for a Therapy,Speech Therapy minimum of 3 hours of daily therapy 5 out of 7 days a week. Therapy intensity may be adjusted within a 7 consecutive day period to effectively serve the individual needs of the patient. Treatment Frequency/Intensity/Duration Treatment Frequency 5 days per week Treatment Intensity 3 hours per day Treatment Duration 14-18 days Problem Area: Eating/Swallowing Eating/Swallowing Outcomes Feed Self Eating/Swallowing Interventions Patient/Caregiver Education Problem Area: Bathing/Grooming Bathing/Grooming Outcomes Improve [place] w/ Grooming,Improve [place] w/ Bathing Bathing/Grooming Interventions ADL Training,Use of Assistive Devices,Therapeutic Exercise, Therapeutic Activity, Neuromuscular Re-Education, Activity Tolerance Work, Patient/Caregiver Education Problem Area: Dressing Dressing Outcomes Improve [place] w/ UB Dressing,Improve [place] w/ LB Dressing Dressing Interventions ADL Training,Use of Assistive Devices,Neuromuscular Re- Education,Therapeutic Exercise ,Patient/Caregiver Education Problem Area: Mobility Mobility Outcomes Improve [place] w/ Bed Mobility,Improve [place] w/ Ambulation,Improve [place] w/ Wheelchair Mobility Interventions Therapeutic Exercise, Neuromuscular Re-Ed.,Activity Tolerance Work,Use of Assistive Devices,Patient/ Caregiver Education,Bed Mobility Work,Gait Training,W/ C Mobility Work Problem Area: Transfers Transfers Outcomes Improve [place] w/ Bed Transfers,Improve [place] w/ Toilet Transfers,Improve [place] w/ Tub/Shower Transfers Transfers Interventions Transfer Training,Therapeutic Exercise,Neuromuscular Re- Education,Use of Assistive Devices,Patient/Caregiver Education Problem Area: Bowel/Bladder Managment Bowel/Bladder Outcomes Bowel/Bladder Interventions Problem Area: Toileting Toileting Outcomes Improve [place] w/ Toileting Toileting Interventions ADL Training,Use of Assistive Devices,Patient/Caregiver Education Problem Area: Nutrition Nutrition Outcomes Nutrition Interventions Problem Area: Comprehension Comprehension Outcomes Comprehension Interventions Problem Area: Expression Expression Outcomes Expression Interventions Problem Area: Problem Solving Problem Solving Outcomes Improve Problem Solving Problem Solving Interventions Cognitive Training,Visual/ Perceptual Training,Patient/ Caregiver Education Problem Area: Memory Memory Outcomes Memory Interventions Problem Area: Pain Management Pain Management Outcomes Pain Management Interventions Problem Area: Knowledge Deficits Knowledge Deficits Outcomes Knowledge Deficits Interventions Problem Area: Skin/Tissue Integrity Skin/Tissue Integrity Outcomes Skin/Tissue Integrity Interventions Problem Area: Social Interaction Social Interaction Outcomes Social Interaction Interventions Problem Area: Adjustment to Disability Adjustment to Disability Outcomes Adjustment to Disability Interventions Problem Area: Discharge Concerns Discharge Concerns Outcomes Discharge w/ Necessary Equipment,Have Home Health/ Outpatient Services Discharge Concerns Interventions Discharge Planning,Family/ Caregiver Training Problem Area: Community Reintegration Community Reintegration Outcomes Community Reintegration Interventions Problem Area: Home Management Home Management Outcomes Home Management Interventions Problem Area: Safety Safety Outcomes Perform Selfcare Safely, Demonstrate Good Safety w/ Transfers/Mobility Safety Interventions Reduce Environmental Hazards Problem Area: Medication Education Medication Education Outcomes Medication Education Interventions Problem Area: Diabetes Education Diabetes Education Outcomes Demonstrate Knowledge of Resources Availlable in Diabetic Ed. Folder Diabetes Education Interventions Give Pt. Diabetes Education Folder,Discuss Pathophysiology of Diabetes Problem Area: Oxygenation Oxygenation Outcomes Oxygenation Interventions Problem Area: Cardiovascular Cardiovascular Outcomes Cardiovascular Interventions Physician Only Medical Prognosis and Rehabilitation Potential (Completed by Physician) Fair rehab potential, 2 months post stroke. Will work to increase independence and decrease caregiver burden. Good medical prognosis. This plan of care has been developed based on the findings from the pre- admission assessment, post admission physician evaluation, information gathered from the assessments from all therapy disciplines and other pertinent clinicians. The plan of care has been reviewed and discussed in collaboration with the interdisciplinary team. The plan of care will be reviewed and updated at least weekly.
[2019-10-12] MEDS: MIRTAZAPINE 15 MG TAB FEEDTUBE SCH (21:31)
[2019-10-12] MEDS: MELATONIN 5 MG TAB PO SCH (21:31)
[2019-10-12] MEDS: INSULIN GLARGINE 100 UNITS/ML SUB-Q SCH (21:41)
[2019-10-13] MEDS: AMANTADINE FEEDTUBE SCH ×2 (09:11→14:57)
[2019-10-13] MEDS: FAMOTIDINE 20 MG TAB FEEDTUBE SCH ×2 (09:12→21:38)
[2019-10-13] MEDS: FERROUS SULFATE 325 MG TAB PO SCH ×2 (09:12→21:37)
[2019-10-13] MEDS: FOLIC ACID 1 MG TAB PO SCH (09:12)
[2019-10-13] MEDS: ASCORBIC ACID 500 MG TAB PO SCH ×2 (09:12→21:39)
[2019-10-13] MEDS: amLODIPine 10 MG TAB FEEDTUBE SCH (09:13)
[2019-10-13] MEDS: LISINOPRIL 40 MG TAB FEEDTUBE SCH (09:13)
[2019-10-13] MEDS: APIXABAN 5 MG TAB FEEDTUBE SCH ×2 (09:13→21:38)
[2019-10-13] MEDS: hydrALAZINE 100 MG TAB FEEDTUBE SCH ×3 (09:13→21:39)
[2019-10-13] MEDS: carvediloL 6.25 MG TAB FEEDTUBE SCH ×2 (09:14→21:38)
[2019-10-13] MEDS: INSULIN LISPRO 100 UNIT/ML SUB-Q SCH ×4 (09:14→21:39)
[2019-10-13] MEDS: POLYETHYLENE GLYCOL 3350 17 GM POWDER FEEDTUBE PRN (16:25)
[2019-10-13] MEDS: MIRTAZAPINE 15 MG TAB FEEDTUBE SCH (21:38)
[2019-10-13] MEDS: INSULIN GLARGINE 100 UNITS/ML SUB-Q SCH (21:39)
[2019-10-13] MEDS: MELATONIN 5 MG TAB PO SCH (21:39)
[2019-10-14] MEDS: ASCORBIC ACID 500 MG TAB PO SCH ×2 (07:42→22:44)
[2019-10-14] MEDS: LISINOPRIL 40 MG TAB FEEDTUBE SCH (07:42)
[2019-10-14] MEDS: amLODIPine 10 MG TAB FEEDTUBE SCH (07:42)
[2019-10-14] MEDS: carvediloL 6.25 MG TAB FEEDTUBE SCH ×2 (07:43→22:43)
[2019-10-14] MEDS: AMANTADINE FEEDTUBE SCH ×2 (07:43→12:06)
[2019-10-14] MEDS: FOLIC ACID 1 MG TAB PO SCH (07:43)
[2019-10-14] MEDS: FERROUS SULFATE 325 MG TAB PO SCH ×2 (07:43→22:42)
[2019-10-14] MEDS: FAMOTIDINE 20 MG TAB FEEDTUBE SCH ×2 (07:43→22:44)
[2019-10-14] MEDS: INSULIN LISPRO 100 UNIT/ML SUB-Q SCH ×4 (07:55→23:07)
[2019-10-14] MEDS: hydrALAZINE 100 MG TAB FEEDTUBE SCH ×2 (07:59→16:51)
[2019-10-14] MEDS: APIXABAN 5 MG TAB FEEDTUBE SCH ×3 (07:59→22:43)
[2019-10-14 08:20] LABS: Hematocrit 36.9 % (35.5-45.6); Mean Corpuscular HGB Conc 33 % (32-34); Mean Corpuscular Volume 76 fl (84-94); Platelet Count 179 K/mm3 (140-440); Red Blood Count 4.84 M/mm3 (3.65-5.03); Red Cell Distribution Width 16.1 % (13.2-15.2)
[2019-10-14 08:44] LABS: BUN/Creatinine Ratio 13; Blood Urea Nitrogen 12 mg/dL (9-20); Calcium 9.4 mg/dL (8.4-10.2); Hemolysis Index 7
--- NOTE | 2019-10-14 11:14 | Progress Note ---
Subjective Date of service: 10/14/19 Principal diagnosis: CVA Interval history: 64-year-old male who presented to [place] [facility] on August 11 with acute onset of left-sided weakness. 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 Alteplase was given on 08/11. He developed delayed cerebral edema and hemorrhagic conversion. CT head showed large right-sided MCA territory infarct with scattered hyperdensities and cerebral edema with midline shift on August 13. August 15 there is an increase to 7 mm from the previous [address] with new petechial hemorrhages. Neurosurgery was consulted and ultimately required a decompressive hemicraniectomy on August 22. He continued to have increased bleeding prompting aspirin to be held on August 25. Patient was transferred from the ICU to neurology general floor on August 27. MRI brain on August 30 showed evolving large right MCA infarct with hemorrhagic transformation. Stable appearing midline shift. Hematoma superficial to craniotomy in the right temporalis muscle. On 08/30 he underwent Ultrasound Doppler venous left upper extremity showed a nonocclusive deep vein thrombosis in the left axillary vein and a thrombus within the superficial basilic vein. Ultrasound Doppler venous left lower extremity showed chronic DVT of the left common femoral vein on 09/04 for which an IVC filter was placed on September 06. PEG was placed on September 10 due to poor oral intake and dysphasia. EKG and telemetry monitoring showed paroxysmal atrial fibrillation. TTE showed an ejection fraction of 50 to 55% with severely dilated left atrium and impaired left ventricle relaxation. Patient was tolerating a bolus tube feed diet of Nutren 1.5 max of 5 cans/day with free water flushes 100 mils before and after each feed if the patient ate less than 25% bolus 2 cans, 50% bolus 1 can, greater than 50% no bolus. Stroke labs at outside hospital A1c 7.1, TSH 1.375, total cholesterol 198, LDL 132, RPR nonreactive, INR 1.1. Patient was transition to Eliquis as a secondary stroke prevention and anticoagulation for atrial fibrillation. He was taken off of aspirin due to risk of bleeding prior to leaving the hospital and going to the custodial facility. The physicians at the hospital also made recommendation for considering a watchman device as an outpatient. 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 After the patient was stabilized he was transferred to subacute rehabilitation. Family visited our inpatient rehabilitation and was unhappy with his lack of progress at subacute and noted that he has been participating more with therapy but do not feel like he is getting the amount of therapy that he could truly benefit from. After discussion with the family as well as the facility and review of the past we opted to accept the patient to give him an opportunity to participate in a more intensive therapy schedule. Several discussions had with family on final disposition and ensuring that he would be going home regardless of how much recovery we were able to make. Patient was transferred to us from a subacute rehab where he has been since September 20. After the patient was medically stabilized they were transferred for further rehabilitation. All available medical records have been reviewed. Plan of care, prognosis, expectations, secondary stroke prevention, discharge planning was discussed with patient and family (2 daughters). Day prior to admission 48 minutes were spent reviewing all available records from the outside hospital as well as the custodial facility in preparation for transfer of the patient to acute inpatient rehabilitation. Interval history: Patient is participating in therapy and making reasonable progress. Taking rest breaks as needed. -BM. Denies pain, palpitations, dyspnea, cough, N/V, or joint pain. CVA: Patient making progress with therapy. Continue to monitor for worsening neurologic function. Continue secondary stroke prevention. No change in hemiplegia, no spasticity, no change in dysphagia. Hemicraniectomy: Sunken, helmet on when out of bed, well-healed continue to monitor Paroxysmal atrial fibrillation: Denies palpitations, rate controlled, tolerating anticoagulation. Continue to monitor Hypertension: Blood pressures been in a good range. Continue to monitor Diabetes: Glucose checks have been less than 200. Continue to monitor and adjust insulin as needed based on oral intake. Anemia: Hemoglobin level has normalized, however he is still microcytic. Nutrition: Patient is eating fairly well. We will continue to monitor and continue appetite stimulant. Cognition: Continue amantadine and monitor for improvement. All records, vitals, labs and medications were reviewed. No other issues per patient, nursing or therapy. Objective - Exam Narrative Exam: MUSCULOSKELETAL SPECIALTY EXAM CONSTITUTIONAL: Well developed, well nourished, appropriately groomed. LEFT hand dominant. Head: Right craniectomy site sunken with mild dependent swelling at the base, soft RESPIRATORY: Clear to auscultation bilaterally, no increased work of breathing CARDIOVASCULAR: Regular Rate/ Rhythm, no swelling, edema or tenderness in BUE or BLE. All ex tremities warm. GI: + bowel sounds, soft, NTTP, nondistended. PEG tube present INTEGUMENTARY: Normal, no lesion, rash, masses or bruising noted in extremities. MUSCULOSKELETAL: Left shoulder subluxation, otherwise BUE and BLE normal without defect, crepitus, subluxation, effusion, arthritic changes or TTP. R 4+/5 L 0/5 ROM decreased on left, normal on right Tone flaccid on left, normal on right NEURO: CN II : Right visual colmenares full to confrontation, left blind CN III, IV, : EOMI on the right but right eye does preferentially veer towards the lateral aspect CN V : Facial sensation intact decreased on left CN VII : Slight left facial droop CN XI : Left shoulder shrug absent Sensation impaired on left with extinction, normal on right No tremor noted in 4 extremities. Naming and repetition intact. Follows 2 step commands. Aphasia not appreciated Dysarthria not appreciated Dysphagia present Neglect to left side with activity, right gaze preference. Does recognize the left and address it, just can not attend to it. POSTURE and GAIT: Sitting posture okay. Balance and gait deferred until seen with therapy. PSYCH: Alert, oriented x3, affect appears flattened. Insight appears mostly intact. - Constitutional Vitals: Vital Signs - 12hr 10/13/19 10/14/19 23:42 07:49 Temperature 98.4 F 98.4 F Pulse Rate 69 65 Respiratory 20 17 Rate Blood Pressure 133/62 Blood Pressure 132/70 [Left] O2 Sat by Pulse 96 97 Oximetry - Allied health notes Allied health notes reviewed: nursing, PT, ST, OT FIMS assessment as documented by PT/OT/ST: Social interaction/Memory/Problem solving Social Interaction FIM Score 5. Supervision (Needs supv. <10%. Needs encouragement to participate.) Memory FIM Score 4. Minimal Assistance (Recognizes and remembers 75-90%.) Problem Solving FIM Score 4. Minimal Assistance (Solves routine problems 75-90%.) Transfers Mode of Locomotion: Wheelchair Bed/Chair/Wheelchair Transfers 1. Total Assistance (Patient less than 25%. 2 or FIM Score more persons.) Dressing-Upper body Upper Body Dressing Device Seismograph Shooter Patient retrieves clothing No items: Patient applies/removes UE No prosthesis or orthosis: Upper Body Dressing FIM Score 2. Maximal Assistance (Patient = 25% or more) Dressing-lower body Patient retrieves clothing No items: Patient applies/removes LE No prosthesis or orthosis: Lower Body Dressing FIM Score 2. Maximal Assistance (Patient = 25% or more) - Labs CBC & Chem 7: 10/14/19 08:06 10/14/19 08:06 Labs: Laboratory Results - last 72 hr 10/11/19 10/11/19 10/11/19 11:22 16:33 20:51 WBC RBC Hgb Hct MCV MCH MCHC RDW Plt Count Sodium Potassium Chloride Carbon Dioxide Anion Gap BUN Creatinine Estimated GFR BUN/Creatinine Ratio Glucose POC Glucose 155 H 144 H 123 H Calcium 10/12/19 10/12/19 10/12/19 08:42 11:39 16:20 WBC RBC Hgb Hct MCV MCH MCHC RDW Plt Count Sodium Potassium Chloride Carbon Dioxide Anion Gap BUN Creatinine Estimated GFR BUN/Creatinine Ratio Glucose POC Glucose 166 H 244 H 129 H Calcium 10/12/19 10/13/19 10/13/19 21:32 07:07 11:16 WBC RBC Hgb Hct MCV MCH MCHC RDW Plt Count Sodium Potassium Chloride Carbon Dioxide Anion Gap BUN Creatinine Estimated GFR BUN/Creatinine Ratio Glucose POC Glucose 199 H 114 H 132 H Calcium 10/13/19 10/13/19 10/14/19 16:18 21:02 07:25 WBC RBC Hgb Hct MCV MCH MCHC RDW Plt Count Sodium Potassium Chloride Carbon Dioxide Anion Gap BUN Creatinine Estimated GFR BUN/Creatinine Ratio Glucose POC Glucose 190 H 160 H 142 H Calcium 10/14/19 10/14/19 08:06 08:06 WBC 5.0 RBC 4.84 Hgb 12.0 Hct 36.9 MCV 76 L MCH 25 L MCHC 33 RDW 16.1 H Plt Count 179 Sodium 137 Potassium 4.1 Chloride 98.9 Carbon Dioxide 25 Anion Gap 17 BUN 12 Creatinine 0.9 Estimated GFR > 60 BUN/Creatinine Ratio 13 Glucose 170 H POC Glucose Calcium 9.4 Assessment and Plan CVA, MCA, embolic with hemorrhagic conversion left dominant hemiplegia: Flaccid left side. Continue secondary stroke prevention (antithrombotic, statin (goal LDLC <70), BP control (goal less than 140/90), GLU control (goal A1c <7), and lifestyle modification). Monitor for recurrent stroke or post-stroke recrudescence. Continue neuromotor therapy as above. Family training when available. Monitor for post-stroke depression, cognitive deficits, seizure, dysphagia, aphasia, shoulder-hand syndrome, sensory deficits, spasticity, bowel/bladder deficits, sleep disturbance, vision deficits, pressure sores and DVT. Prognosis for recovery and secondary stroke prevention discussed with patient and family. Follow-up with neurology. No driving until cleared by neurologist. Paroxysmal atrial fibrillation: Continue rate control and anticoagulation. Adjust medications as needed. Monitor for palpitations, dyspnea, lightheadedness, chest pain, fatigue. EKG as needed. Diastolic dysfunction: Monitor for any exacerbation of diastolic dysfunction. Hypertension: Continue medications. Monitor blood pressure every 4 hours while awake. Adjust medications as needed for normotension and hold for hypotension. Diabetes type 2: Continue current diet. Monitor blood glucose before meals and at bedtime. Sliding scale insulin. Adjust medications as needed for normoglycemia. Skin checks per nursing to identify any new wounds. Left upper extremity and left lower extremity DVT: Continue Eliquis. Monitor for any signs of worsening condition. Patient does have a IVC filter installed as well. Dysphagia: Eating all meals and not taking any PEG tubes currently only thing through the PEG is medication. Continue current diet. HEALTH AND SAFETY ADVISOR to monitor and advance diet as able, and perform F EES, MBSS or e-stim as needed. Shoulder subluxation: Continue strengthening exercises for improvement of shoulder subluxation. Arm tray while in wheelchair. Prop the arm on pillows including hand for elevation while in bed. Consider kinesiotaping and/or e- stim. Anemia: Microcytic. Replace iron, folate, vitamin C. monitor Cognition: Continue amantadine at breakfast as well as lunch. Patient was previously getting this every 12 hours we should see a little bit better tolerance for it scheduled appropriately. Monitor for improvement. Supportive care and therapy. Family involvement as available. Continue reminders throughout therapy and the day to ensure patient safety. Altered sensation on the left: Monitor for skin wounds. Improve patient's ability to self monitor placement of limbs to avoid injury. Medication as needed for painful paresthesias. Poor nutritional intake: Check nutrition labs including pre-albumin. Monitor oral intake and weights. Patient is on appetite stimulant, continue Remeron. Right craniectomy: Currently sunken with very slight CSF collection at the base of the craniectomy. Monitor for any changes in volume and notified neurosurgeon if this occurs. Helmet on anytime out of bed. When out of bed with helmet on need to monitor periodically for swelling. ADL dysfunction: OT will work on improving ability to perform ADLs (including assistive devices) to increase independence and decrease caregiver burden and improve functional transfers and mobility training. Difficulty walking: PT will work on gait training and proper use of assistive devices and advance as appropriate to use of stairs and outside ambulation on uneven surfaces. Unsteadiness on feet: PT will work on improving static and dynamic sitting and standing balance as well as proper use of assistive devices to decrease risk of falls. Abnormality of gait: PT will work to improve safety and efficiency of gait through neuromotor training and gait training along with instruction on proper use of assistive devices. Muscle weakness: PT & OT will work on strengthening exercises to improve functional strength including mixture of closed and open kinetic chain exercises. Debility: PT & OT will work on improving overall functional status to improve participation with ADLs, mobility and social involvement. Fatigue: PT & OT will work on improving endurance through aerobic exercises and therapeutic activity while monitoring patients tolerance for activity and vital signs as needed. DVT ppx: Eliquis for atrial fibrillation Pain: Continue physical modalities in therapy and pain medications as needed to achieve functional pain control. Sleep: Monitor and address as needed. Melatonin Bowel: Monitor and address as needed. Appetite: Monitor and address as needed. Mirtazapine Discharge planning: Pending therapy progress and care plan meeting. Will continue discussion with therapy team, SW, patient and family. Restrictions/ Precautions: Falls, craniectomy (helmet on when out of bed), low bed, decreased sensation on left WB status: FWB Functional Hx: ADLs: Independent Cognition: Independent Mobility: No AD Barriers to Discharge: Decreased mobility and ability to perform self care, balance deficits, weakness, craniectomy, left dominant hemiplegia, dysphagia Estimated Length of Stay: 1421 days Discharge Destination: Home with family
[2019-10-14] MEDS: MIRTAZAPINE 15 MG TAB FEEDTUBE SCH (22:42)
[2019-10-14] MEDS: MELATONIN 5 MG TAB PO SCH (22:44)
[2019-10-14] MEDS: INSULIN GLARGINE 100 UNITS/ML SUB-Q SCH (22:44)
[2019-10-14] MEDS: traMADol 50 MG TAB FEEDTUBE PRN (23:05)
[2019-10-15] MEDS: hydrALAZINE 100 MG TAB FEEDTUBE SCH ×4 (09:39→23:54)
[2019-10-15] MEDS: amLODIPine 10 MG TAB FEEDTUBE SCH (09:39)
[2019-10-15] MEDS: ASCORBIC ACID 500 MG TAB PO SCH ×2 (09:40→22:02)
[2019-10-15] MEDS: FOLIC ACID 1 MG TAB PO SCH (09:40)
[2019-10-15] MEDS: FERROUS SULFATE 325 MG TAB PO SCH ×2 (09:40→22:02)
[2019-10-15] MEDS: FAMOTIDINE 20 MG TAB FEEDTUBE SCH ×2 (09:40→22:02)
[2019-10-15] MEDS: carvediloL 6.25 MG TAB FEEDTUBE SCH ×2 (09:40→22:02)
[2019-10-15] MEDS: LISINOPRIL 40 MG TAB FEEDTUBE SCH (09:40)
[2019-10-15] MEDS: AMANTADINE FEEDTUBE SCH ×2 (09:41→12:10)
[2019-10-15] MEDS: INSULIN LISPRO 100 UNIT/ML SUB-Q SCH ×4 (09:41→22:06)
[2019-10-15] MEDS: APIXABAN 5 MG TAB FEEDTUBE SCH ×2 (09:41→22:03)
[2019-10-15] MEDS: POLYETHYLENE GLYCOL 3350 17 GM POWDER FEEDTUBE PRN (13:49)
--- NOTE | 2019-10-15 14:05 | Progress Note ---
Subjective Date of service: 10/15/19 Principal diagnosis: CVA Interval history: 64-year-old male who presented to [facility] on August 11 with acute onset of left-sided weakness. 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 Alteplase was given on 08/11. He developed delayed cerebral edema and hemorrhagic conversion. CT head showed large right-sided MCA territory infarct with scattered hyperdensities and cerebral edema with midline shift on August 13. August 15 there is an increase to 7 mm from the previous [address] with new petechial hemorrhages. Neurosurgery was consulted and ultimately required a decompressive hemicraniectomy on August 22. He continued to have increased bleeding prompting aspirin to be held on August 25. Patient was transferred from the ICU to neurology general floor on August 27. MRI brain on August 30 showed evolving large right MCA infarct with hemorrhagic transformation. Stable appearing midline shift. Hematoma superficial to craniotomy in the right temporalis muscle. On 08/30 he underwent Ultrasound Doppler venous left upper extremity showed a nonocclusive deep vein thrombosis in the left axillary vein and a thrombus within the superficial basilic vein. Ultrasound Doppler venous left lower extremity showed chronic DVT of the left common femoral vein on 09/04 for which an IVC filter was placed on September 06. PEG was placed on September 10 due to poor oral intake and dysphasia. EKG and telemetry monitoring showed paroxysmal atrial fibrillation. TTE showed an ejection fraction of 50 to 55% with severely dilated left atrium and impaired left ventricle relaxation. Patient was tolerating a bolus tube feed diet of Nutren 1.5 max of 5 cans/day with free water flushes 100 mils before and after each feed if the patient ate less than 25% bolus 2 cans, 50% bolus 1 can, greater than 50% no bolus. Stroke labs at outside hospital A1c 7.1, TSH 1.375, total cholesterol 198, LDL 132, RPR nonreactive, INR 1.1. Patient was transition to Eliquis as a secondary stroke prevention and anticoagulation for atrial fibrillation. He was taken off of aspirin due to risk of bleeding prior to leaving the hospital and going to the correction facility. The physicians at the hospital also made recommendation for considering a watchman device as an outpatient. 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 After the patient was stabilized he was transferred to subacute rehabilitation. Family visited our inpatient rehabilitation and was unhappy with his lack of progress at subacute and noted that he has been participating more with therapy but do not feel like he is getting the amount of therapy that he could truly benefit from. After discussion with the family as well as the facility and review of the past we opted to accept the patient to give him an opportunity to participate in a more intensive therapy schedule. Several discussions had with family on final disposition and ensuring that he would be going home regardless of how much recovery we were able to make. Patient was transferred to us from a subacute rehab where he has been since September 20. After the patient was medically stabilized they were transferred for further rehabilitation. All available medical records have been reviewed. Plan of care, prognosis, expectations, secondary stroke prevention, discharge planning was discussed with patient and family (2 daughters). Day prior to admission 48 minutes were spent reviewing all available records from the outside hospital as well as the correction facility in preparation for transfer of the patient to acute inpatient rehabilitation. Interval history: Patient declined therapy today due to feeling funny in his stomach (see below under constipation). -BM. Denies pain, palpitations, dyspnea, cough, N/V, or joint pain. CVA: Patient making progress with therapy. Continue to monitor for worsening neurologic function. Continue secondary stroke prevention. No change in hemiplegia, no spasticity, no change in dysphagia. Hemicraniectomy: Sunken, helmet on when out of bed, well-healed continue to monitor Constipation: He has not had a bowel movement since October 09. He has medications available, uncertain as to why they have not been offered. Have instructed nursing to give him medications and continue to monitor for bowel movement. Also scheduled MiraLAX and senna. Ordered KUB due to abdominal pain and constipation. Admits to flatus. Paroxysmal atrial fibrillation: Denies palpitations, rate controlled, tolerating anticoagulation. Continue to monitor Hypertension: Blood pressures been in a good range. Continue to monitor Diabetes: Glucose checks have been less than 200. Continue to monitor and adjust insulin as needed based on oral intake. Anemia: Hemoglobin level has normalized, however he is still microcytic. Nutrition: Patient is eating fairly well. We will continue to monitor and continue appetite stimulant. Cognition: Continue amantadine and monitor for improvement. Patient seems alert and more interactive today than he has previously. Hopefully will be able to start using Lite Gait with the patient in the near future to improve mobility. All records, vitals, labs and medications were reviewed. No other issues per patient, nursing or therapy. Objective - Exam Narrative Exam: MUSCULOSKELETAL SPECIALTY EXAM CONSTITUTIONAL: Well developed, well nourished, appropriately groomed. LEFT hand dominant. Head: Right craniectomy site sunken with mild dependent swelling at the base, soft RESPIRATORY: Clear to auscultation bilaterally, no increased work of breathing CARDIOVASCULAR: Regular Rate/ Rhythm, no swelling, edema or tenderness in BUE or BLE. All extremities warm. GI: + bowel sounds, soft, NTTP, nondistended. PEG tube present INTEGUMENTARY: Normal, no lesion, rash, masses or bruising noted in extremities. MUSCULOSKELETAL: Left shoulder subluxation, otherwise BUE and BLE normal without defect, crepitus, subluxation, effusion, arthritic changes or TTP. R 4+/5 L 0/5 ROM decreased on left, normal on right Tone flaccid on left, normal on right NEURO: CN II : Right visual colmenares full to confrontation, left blind CN III, IV, : EOMI on the right but right eye does preferentially veer towards the lateral aspect CN V : Facial sensation intact decreased on left CN VII : Slight left facial droop CN XI : Left shoulder shrug absent Sensation impaired on left with extinction, normal on right No tremor noted in 4 extremities. Naming and repetition intact. Follows 2 step commands. Aphasia not appreciated Dysarthria not appreciated Dysphagia present Neglect to left side with activity, right gaze preference. Does recognize the left and address it, just can not attend to it. POSTURE and GAIT: Sitting posture okay. Balance and gait deferred until seen with therapy. PSYCH: Alert, oriented x3, affect appears flattened. Insight appears mostly intact. - Constitutional Vitals: Vital Signs - 12hr 10/15/19 10/15/19 10/15/19 07:11 09:39 09:40 Temperature 98.0 F Pulse Rate 58 L 58 L 58 L Respiratory 20 Rate Blood Pressure 132/70 132/70 132/70 O2 Sat by Pulse 97 Oximetry - Allied health notes Allied health notes reviewed: nursing, PT, ST, OT FIMS assessment as documented by PT/OT/ST: Social interaction/Memory/Problem solving Social Interaction FIM Score 3. Moderate Assistance (Interacts appropriately 50-74%.) Memory FIM Score 3. Moderate Assistance (Recognizes and remembers 50-74%.) Problem Solving FIM Score 3. Moderate Assistance (Solves routine problems 50-74%.) Transfers Mode of Locomotion: Wheelchair Bed/Chair/Wheelchair Transfers 2. Maximal Assistance (Patient = 25% or more) FIM Score Dressing-Upper body Upper Body Dressing Device Director Of Customer Acquisition Patient retrieves clothing No items: Patient applies/removes UE No prosthesis or orthosis: Upper Body Dressing FIM Score 2. Maximal Assistance (Patient = 25% or more) Dressing-lower body Patient retrieves clothing No items: Patient applies/removes LE No prosthesis or orthosis: Lower Body Dressing FIM Score 2. Maximal Assistance (Patient = 25% or more) - Labs CBC & Chem 7: 10/14/19 08:06 10/14/19 08:06 Labs: Laboratory Results - last 72 hr 10/12/19 10/12/19 10/13/19 16:20 21:32 07:07 WBC RBC Hgb Hct MCV MCH MCHC RDW Plt Count Sodium Potassium Chloride Carbon Dioxide Anion Gap BUN Creatinine Estimated GFR BUN/Creatinine Ratio Glucose POC Glucose 129 H 199 H 114 H Calcium 10/13/19 10/13/19 10/13/19 11:16 16:18 21:02 WBC RBC Hgb Hct MCV MCH MCHC RDW Plt Count Sodium Potassium Chloride Carbon Dioxide Anion Gap BUN Creatinine Estimated GFR BUN/Creatinine Ratio Glucose POC Glucose 132 H 190 H 160 H Calcium 10/14/19 10/14/19 10/14/19 07:25 08:06 08:06 WBC 5.0 RBC 4.84 Hgb 12.0 Hct 36.9 MCV 76 L MCH 25 L MCHC 33 RDW 16.1 H Plt Count 179 Sodium 137 Potassium 4.1 Chloride 98.9 Carbon Dioxide 25 Anion Gap 17 BUN 12 Creatinine 0.9 Estimated GFR > 60 BUN/Creatinine Ratio 13 Glucose 170 H POC Glucose 142 H Calcium 9.4 10/14/19 10/14/19 10/14/19 11:38 16:29 21:46 WBC RBC Hgb Hct MCV MCH MCHC RDW Plt Count Sodium Potassium Chloride Carbon Dioxide Anion Gap BUN Creatinine Estimated GFR BUN/Creatinine Ratio Glucose POC Glucose 182 H 197 H 149 H Calcium 10/15/19 10/15/19 06:24 11:27 WBC RBC Hgb Hct MCV MCH MCHC RDW Plt Count Sodium Potassium Chloride Carbon Dioxide Anion Gap BUN Creatinine Estimated GFR BUN/Creatinine Ratio Glucose POC Glucose 93 173 H Calcium Assessment and Plan CVA, MCA, embolic with hemorrhagic conversion left dominant hemiplegia: Flaccid left side. Continue secondary stroke prevention (antithrombotic, statin (goal LDLC <70), BP control (goal less than 140/90), GLU control (goal A1c <7), and lifestyle modification). Monitor for recurrent stroke or post-stroke recrudescence. Continue neuromotor therapy as above. Family training when available. Monitor for post-stroke depression, cognitive deficits, seizure, dysphagia, aphasia, shoulder-hand syndrome, sensory deficits, spasticity, bowel/bladder deficits, sleep disturbance, vision deficits, pressure sores and DVT. Prognosis for recovery and secondary stroke prevention discussed with patient and family. Follow-up with neurology. No driving until cleared by neurologist. Paroxysmal atrial fibrillation: Continue rate control and anticoagulation. Adjust medications as needed. Monitor for palpitations, dyspnea, lightheadedness, chest pain, fatigue. EKG as needed. Diastolic dysfunction: Monitor for any exacerbation of diastolic dysfunction. Hypertension: Continue medications. Monitor blood pressure every 4 hours while awake. Adjust medications as needed for normotension and hold for hypotension. Diabetes type 2: Continue current diet. Monitor blood glucose before meals and at bedtime. Sliding scale insulin. Adjust medications as needed for normoglycemia. Skin checks per nursing to identify any new wounds. Left upper extremity and left lower extremity DVT: Continue Eliquis. Monitor for any signs of worsening condition. Patient does have a IVC filter installed as well. Dysphagia: Eating all meals and not taking any PEG tubes currently only thing through the PEG is medication. Continue current diet. SOCIAL WORK COORDINATOR to monitor and advance diet as able, and perform FEES, MBSS or e-stim as needed. Shoulder subluxation: Continue strengthening exercises for improvement of shoulder subluxation. Arm tray while in wheelchair. Prop the arm on pillows including hand for elevation while in bed. Consider kinesiotaping and/or e- stim. Anemia: Microcytic. Replace iron, folate, vitamin C. monitor Cognition: Continue amantadine at breakfast as well as lunch. Patient was previously getting this every 12 hours we should see a little bit better tolerance for it scheduled appropriately. Monitor for improvement. Supportive care and therapy. Family involvement as available. Continue reminders throughout therapy and the day to ensure patient safety. Altered sensation on the left: Monitor for skin wounds. Improve patient's ability to self monitor placement of limbs to avoid injury. Medication as needed for painful paresthesias. Poor nutritional intake: Check nutrition labs including pre-albumin. Monitor oral intake and weights. Patient is on appetite stimulant, continue Remeron. Right craniectomy: Currently sunken with very slight CSF collection at the base of the craniectomy. Monitor for any changes in volume and notified neurosurgeon if this occurs. Helmet on anytime out of bed. When out of bed with helmet on need to monitor periodically for swelling. ADL dysfunction: OT will work on improving ability to perform ADLs (including assistive devices) to increase independence and decrease caregiver burden and improve functional transfers and mobility training. Difficulty walking: PT will work on gait training and proper use of assistive devices and advance as appropriate to use of stairs and outside ambulation on uneven surfaces. Unsteadiness on feet: PT will work on improving static and dynamic sitting and standing balance as well as proper use of assistive devices to decrease risk of falls. Abnormality of gait: PT will work to improve safety and efficiency of gait through neuromotor training and gait training along with instruction on proper use of assistive devices. Muscle weakness: PT & OT will work on strengthening exercises to improve functional strength including mixture of closed and open kinetic chain exercises. Debility: PT & OT will work on improving overall functional status to improve participation with ADLs, mobility and social involvement. Fatigue: PT & OT will work on improving endurance through aerobic exercises and therapeutic activity while monitoring patients tolerance for activity and vital signs as needed. DVT ppx: Eliquis for atrial fibrillation Pain: Continue physical modalities in therapy and pain medications as needed to achieve functional pain control. Sleep: Monitor and address as needed. Melatonin Bowel: Monitor and address as needed. Appetite: Monitor and address as needed. Mirtazapine Discharge planning: Pending therapy progress and care plan meeting. Will continue discussion with therapy team, SW, patient and family. Restrictions/ Precautions: Falls, craniectomy (helmet on when out of bed), low bed, decreased sensation on left WB status: FWB Functional Hx: ADLs: Independent Cognition: Independent Mobility: No AD Barriers to Discharge: Decreased mobility and ability to perform self care, balance deficits, weakness, craniectomy, left dominant hemiplegia, dysphagia Estimated Length of Stay: 1421 days Discharge Destination: Home with family
--- NOTE | 2019-10-15 15:15 | XRay Report ---
ABDOMEN 1 VIEW(S) INDICATION / CLINICAL INFORMATION: Constipation, abd pain. COMPARISON: None available. FINDINGS: TUBES / LINES: Feeding tube projects over the stomach. IVC filter is noted. BOWEL GAS PATTERN/EXTRALUMINAL GAS: There is a moderate amount stool noted in the right and proximal transverse colon. There is only a small amount of stool in the remainder the colon. No pneumatosis or secondary signs of free air. ADDITIONAL FINDINGS: No significant additional findings. IMPRESSION: 1. There is a moderate amount of stool in the right and proximal transverse colon small amount of sto ol in the remainder of the colon. Signer Name: Raghavendra Perez MD Signed: 10/15/2019 3:10 PM Workstation Name: [id number]
[2019-10-15] MEDS: POLYETHYLENE GLYCOL 3350 17 GM POWDER FEEDTUBE SCH (17:20)
[2019-10-15] MEDS: MELATONIN 5 MG TAB PO SCH (22:03)
[2019-10-15] MEDS: INSULIN GLARGINE 100 UNITS/ML SUB-Q SCH (22:05)
[2019-10-15] MEDS: MIRTAZAPINE 15 MG TAB FEEDTUBE SCH (22:08)
[2019-10-15] MEDS: SENNOSIDES 8.6 MG TAB PO SCH (22:10)
[2019-10-15] MEDS: traMADol 50 MG TAB FEEDTUBE PRN (22:28)
[2019-10-16] MEDS: INSULIN LISPRO 100 UNIT/ML SUB-Q SCH ×4 (07:33→23:23)
[2019-10-16] MEDS: POLYETHYLENE GLYCOL 3350 17 GM POWDER FEEDTUBE SCH (09:47)
[2019-10-16] MEDS: FOLIC ACID 1 MG TAB PO SCH (09:47)
[2019-10-16] MEDS: FERROUS SULFATE 325 MG TAB PO SCH ×2 (09:47→22:45)
[2019-10-16] MEDS: AMANTADINE FEEDTUBE SCH ×2 (09:47→12:15)
[2019-10-16] MEDS: ASCORBIC ACID 500 MG TAB PO SCH ×2 (09:47→22:47)
[2019-10-16] MEDS: amLODIPine 10 MG TAB FEEDTUBE SCH (09:48)
[2019-10-16] MEDS: FAMOTIDINE 20 MG TAB FEEDTUBE SCH ×2 (09:48→22:45)
[2019-10-16] MEDS: LISINOPRIL 40 MG TAB FEEDTUBE SCH (09:48)
[2019-10-16] MEDS: APIXABAN 5 MG TAB FEEDTUBE SCH ×2 (09:48→22:46)
[2019-10-16] MEDS: hydrALAZINE 100 MG TAB FEEDTUBE SCH ×3 (09:49→22:53)
[2019-10-16] MEDS: carvediloL 6.25 MG TAB FEEDTUBE SCH ×2 (09:49→22:46)
--- NOTE | 2019-10-16 17:12 | Progress Note ---
Subjective Date of service: 10/16/19 Principal diagnosis: CVA Interval history: 64-year-old male who presented to [facility] on August 11 with acute onset of left-sided weakness. 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 Alteplase was given on 08/11. He developed delayed cerebral edema and hemorrhagic conversion. CT head showed large right-sided MCA territory infarct with scattered hyperdensities and cerebral edema with midline shift on August 13. August 15 there is an increase to 7 mm from the previous [address] with new petechial hemorrhages. Neurosurgery was consulted and ultimately required a decompressive hemicraniectomy on August 22. He continued to have increased bleeding prompting aspirin to be held on August 25. Patient was transferred from the ICU to neurology general floor on August 27. MRI brain on August 30 showed evolving large right MCA infarct with hemorrhagic transformation. Stable appearing midline shift. Hematoma superficial to craniotomy in the right temporalis muscle. On 08/30 he underwent Ultrasound Doppler venous left upper extremity showed a nonocclusive deep vein thrombosis in the left axillary vein and a thrombus within the superficial basilic vein. Ultrasound Doppler venous left lower extremity showed chronic DVT of the left common femoral vein on 09/04 for which an IVC filter was placed on September 06. PEG was placed on September 10 due to poor oral intake and dysphasia. EKG and telemetry monitoring showed paroxysmal atrial fibrillation. TTE showed an ejection fraction of 50 to 55% with severely dilated left atrium and impaired left ventricle relaxation. Patient was tolerating a bolus tube feed diet of Nutren 1.5 max of 5 cans/day with free water flushes 100 mils before and after each feed if the patient ate less than 25% bolus 2 cans, 50% bolus 1 can, greater than 50% no bolus. Stroke labs at outside hospital A1c 7.1, TSH 1.375, total cholesterol 198, LDL 132, RPR nonreactive, INR 1.1. Patient was transition to Eliquis as a secondary stroke prevention and anticoagulation for atrial fibrillation. He was taken off of aspirin due to risk of bleeding prior to leaving the hospital and going to the nursing home facility. The physicians at the hospital also made recommendation for considering a watchman device as an outpatient. 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 After the patient was stabilized he was transferred to subacute rehabilitation. Family visited our inpatient rehabilitation and was unhappy with his lack of progress at subacute and noted that he has been participating more with therapy but do not feel like he is getting the amount of therapy that he could truly benefit from. After discussion with the family as well as the facility and review of the past we opted to accept the patient to give him an opportunity to participate in a more intensive therapy schedule. Several discussions had with family on final disposition and ensuring that he would be going home regardless of how much recovery we were able to make. Patient was transferred to us from a subacute rehab where he has been since September 20. After the patient was medically stabilized they were transferred for further rehabilitation. All available medical records have been reviewed. Plan of care, prognosis, expectations, secondary stroke prevention, discharge planning was discussed with patient and family (2 daughters). Day prior to admission 48 minutes were spent reviewing all available records from the outside hospital as well as the nursing home facility in preparation for transfer of the patient to acute inpatient rehabilitation. Interval history: Patient is participating in therapy and making reasonable progress. Taking rest breaks as needed. -BM. Denies pain, palpitations, dyspnea, cough, N/V, or joint pain. There was a report of vomiting x1 however the patient did not verify this. All records, vitals, labs and medications were reviewed. No other issues per patient, nursing or therapy. CVA: Patient making progress with therapy. Continue to monitor for worsening neurologic function. Continue secondary stroke prevention. No change in hem iplegia, no spasticity, no change in dysphagia. Hemicraniectomy: Sunken, helmet on when out of bed, well-healed continue to monitor Constipation: He has not had a bowel movement since October 09. He has medications available, ordered an enema as well Paroxysmal atrial fibrillation: Denies palpitations, rate controlled, tolerating anticoagulation. Continue to monitor Hypertension: Blood pressures been in a good range. Continue to monitor Diabetes: Glucose checks have been less than 200. Continue to monitor and adjust insulin as needed based on oral intake. Anemia: Hemoglobin level has normalized, however he is still microcytic. Nutrition: Patient is eating fairly well. We will continue to monitor and continue appetite stimulant. Cognition: Continue amantadine and monitor for improvement. Patient seems alert and more interactive today than he has previously. Hopefully will be able to start using Lite Gait with the patient in the near future to improve mobility. All records, vitals, labs and medications were reviewed. No other issues per patient, nursing or therapy. Objective - Exam Narrative Exam: MUSCULOSKELETAL SPECIALTY EXAM CONSTITUTIONAL: Well developed, well nourished, appropriately groomed. LEFT hand dominant. Head: Right craniectomy site sunken with mild dependent swelling at the base, soft RESPIRATORY: Clear to auscultation bilaterally, no increased work of breathing CARDIOVASCULAR: Regular Rate/ Rhythm, no swelling, edema or tenderness in BUE or BLE. All extremities warm. GI: + bowel sounds, soft, NTTP, nondistended. PEG tube present INTEGUMENTARY: Normal, no lesion, rash, masses or bruising noted in extremities. MUSCULOSKELETAL: Left shoulder subluxation, otherwise BUE and BLE normal without defect, crepitus, subluxation, effusion, arthritic changes or TTP. R 4+/5 L 0/5 ROM decreased on left, normal on right Tone flaccid on left, normal on right NEURO: CN II : Right visual colmenares full to confrontation, left blind CN III, IV, : EOMI on the right but right eye does preferentially veer towards the lateral aspect CN V : Facial sensation intact decreased on left CN VII : Slight left facial droop CN XI : Left shoulder shrug absent Sensation impaired on left with extinction, normal on right No tremor noted in 4 extremities. Naming and repetition intact. Follows 2 step commands. Aphasia not appreciated Dysarthria not appreciated Dysphagia present Neglect to left side with activity, right gaze preference. Does recognize the left and address it, just can not attend to it. POSTURE and GAIT: Sitting posture okay. Gait deferred. Sitting balance poor, starting to push towards the left PSYCH: Alert, oriented x3, affect appears flattened. Insight appears mostly intact. - Constitutional Vitals: Vital Signs - 12hr 10/16/19 10/16/19 10/16/19 07:30 09:48 09:49 Temperature 98.8 F Pulse Rate 58 L 58 L 58 L Respiratory 20 Rate Blood Pressure 139/72 139/72 Blood Pressure 139/72 [Left] O2 Sat by Pulse 96 Oximetry 10/16/19 15:00 Temperature 97.9 F Pulse Rate 63 Respiratory 20 Rate Blood Pressure Blood Pressure 111/69 [Left] O2 Sat by Pulse 96 Oximetry - Allied health notes Allied health notes reviewed: nursing, PT, ST, OT FIMS assessment as documented by PT/OT/ST: Social interaction/Memory/Problem solving Social Interaction FIM Score 3. Moderate Assistance (Interacts appropriately 50-74%.) Memory FIM Score 3. Moderate Assistance (Recognizes and remembers 50-74%.) Problem Solving FIM Score 3. Moderate Assistance (Solves routine problems 50-74%.) Transfers Mode of Locomotion: Wheelchair Bed/Chair/Wheelchair Transfers 2. Maximal Assistance (Patient = 25% or more) FIM Score Dressing-Upper body Upper Body Dressing Device Wet Mixer Patient retrieves clothing No items: Patient applies/removes UE No prosthesis or orthosis: Upper Body Dressing FIM Score 2. Maximal Assistance (Patient = 25% or more) Dressing-lower body Patient retrieves clothing No items: Patient applies/removes LE No prosthesis or orthosis: Lower Body Dressing FIM Score 2. Maximal Assistance (Patient = 25% or more) - Labs CBC & Chem 7: 10/17/19 06:48 10/17/19 06:48 Labs: Laboratory Results - last 72 hr 10/13/19 10/14/19 10/14/19 21:02 07:25 08:06 WBC 5.0 RBC 4.84 Hgb 12.0 Hct 36.9 MCV 76 L MCH 25 L MCHC 33 RDW 16.1 H Plt Count 179 Sodium Potassium Chloride Carbon Dioxide Anion Gap BUN Creatinine Estimated GFR BUN/Creatinine Ratio Glucose POC Glucose 160 H 142 H Calcium 10/14/19 10/14/19 10/14/19 08:06 11:38 16:29 WBC RBC Hgb Hct MCV MCH MCHC RDW Plt Count Sodium 137 Potassium 4.1 Chloride 98.9 Carbon Dioxide 25 Anion Gap 17 BUN 12 Creatinine 0.9 Estimated GFR > 60 BUN/Creatinine Ratio 13 Glucose 170 H POC Glucose 182 H 197 H Calcium 9.4 10/14/19 10/15/19 10/15/19 21:46 06:24 11:27 WBC RBC Hgb Hct MCV MCH MCHC RDW Plt Count Sodium Potassium Chloride Carbon Dioxide Anion Gap BUN Creatinine Estimated GFR BUN/Creatinine Ratio Glucose POC Glucose 149 H 93 173 H Calcium 10/15/19 10/15/19 10/16/19 16:11 21:15 07:14 WBC RBC Hgb Hct MCV MCH MCHC RDW Plt Count Sodium Potassium Chloride Carbon Dioxide Anion Gap BUN Creatinine Estimated GFR BUN/Creatinine Ratio Glucose POC Glucose 129 H 211 H 113 H Calcium 10/16/19 10/16/19 11:29 16:22 WBC RBC Hgb Hct MCV MCH MCHC RDW Plt Count Sodium Potassium Chloride Carbon Dioxide Anion Gap BUN Creatinine Estimated GFR BUN/Creatinine Ratio Glucose POC Glucose 165 H 165 H Calcium Assessment and Plan CVA, MCA, embolic with hemorrhagic conversion left dominant hemiplegia: Flaccid left side. Continue secondary stroke prevention (antithrombotic, statin (goal LDLC <70), BP control (goal less than 140/90), GLU control (goal A1c <7), and lifestyle modification). Monitor for recurrent stroke or post-stroke recrudescence. Continue neuromotor therapy as above. Family training when available. Monitor for post-stroke depression, cognitive deficits, seizure, dysphagia, aphasia, shoulder-hand syndrome, sensory deficits, spasticity, bowel/bladder deficits, sleep disturbance, vision deficits, pressure sores and DVT. Prognosis for recovery and secondary stroke prevention discussed with patient and family. Follow-up with neurology. No driving until cleared by neurologist. Paroxysmal atrial fibrillation: Continue rate control and anticoagulation. Adjust medications as needed. Monitor for palpitations, dyspnea, ligh theadedness, chest pain, fatigue. EKG as needed. Diastolic dysfunction: Monitor for any exacerbation of diastolic dysfunction. Hypertension: Continue medications. Monitor blood pressure every 4 hours while awake. Adjust medications as needed for normotension and hold for hypotension. Diabetes type 2: Continue current diet. Monitor blood glucose before meals and at bedtime. Sliding scale insulin. Adjust medications as needed for normoglycemia. Skin checks per nursing to identify any new wounds. Left upper extremity and left lower extremity DVT: Continue Eliquis. Monitor for any signs of worsening condition. Patient does have a IVC filter installed as well. Dysphagia: Eating all meals and not taking any PEG tubes currently only thing through the PEG is medication. Continue current diet. TELECOMMUNICATIONS NETWORK ENGINEER to monitor and advance diet as able, and perform FEES, MBSS or e-stim as needed. Shoulder subluxation: Continue strengthening exercises for improvement of shoulder subluxation. Arm tray while in wheelchair. Prop the arm on pillows including hand for elevation while in bed. Consider kinesiotaping and/or e- stim. Anemia: Microcytic. Replace iron, folate, vitamin C. monitor Cognition: Continue amantadine at breakfast as well as lunch. Patient was previously getting this every 12 hours we should see a little bit better tolerance for it scheduled appropriately. Monitor for improvement. Supportive care and therapy. Family involvement as available. Continue reminders thr oughout therapy and the day to ensure patient safety. Altered sensation on the left: Monitor for skin wounds. Improve patient's ability to self monitor placement of limbs to avoid injury. Medication as needed for painful paresthesias. Poor nutritional intake: Check nutrition labs including pre-albumin. Monitor oral intake and weights. Patient is on appetite stimulant, continue Remeron. Right craniectomy: Currently sunken with very slight CSF collection at the base of the craniectomy. Monitor for any changes in volume and notified neurosurgeon if this occurs. Helmet on anytime out of bed. When out of bed with helmet on need to monitor periodically for swelling. ADL dysfunction: OT will work on improving ability to perform ADLs (including assistive devices) to increase independence and decrease caregiver burden and improve functional transfers and mobility training. Difficulty walking: PT will work on gait training and proper use of assistive devices and advance as appropriate to use of stairs and outside ambulation on uneven surfaces. Unsteadiness on feet: PT will work on improving static and dynamic sitting and standing balance as well as proper use of assistive devices to decrease risk of falls. Abnormality of gait: PT will work to improve safety and efficiency of gait through neuromotor training and gait training along with instruction on proper use of assistive devices. Muscle weakness: PT & OT will work on strengthening exercises to improve functional strength including mixture of closed and open kinetic chain exercises. Debility: PT & OT will work on improving overall functional status to improve participation with ADLs, mobility and social involvement. Fatigue: PT & OT will work on improving endurance through aerobic exercises and therapeutic activity while monitoring patients tolerance for activity and vital signs as needed. DVT ppx: Eliquis for atrial fibrillation Pain: Continue physical modalities in therapy and pain medications as needed to achieve functional pain control. Sleep: Monitor and address as needed. Melatonin Bowel: Monitor and address as needed. Increased medications, scheduled. Continue to monitor Appetite: Monitor and address as needed. Mirtazapine Discharge planning: Pending therapy progress and care plan meeting. Will continue discussion with therapy team, SW, patient and family. Restrictions/ Precautions: Falls, craniectomy (helmet on when out of bed), low bed, decreased sensation on left WB status: FWB Functional Hx: ADLs: Independent Cognition: Independent Mobility: No AD Barriers to Discharge: Decreased mobility and ability to perform self care, balance deficits, weakness, craniectomy, left dominant hemiplegia, dysphagia Estimated Length of Stay: 1421 days Discharge Destination: Home with family
[2019-10-16] MEDS ORDERED: MINERAL OIL ENEMA 133 ML PR PRN (17:42)
[2019-10-16] MEDS: INSULIN GLARGINE 100 UNITS/ML SUB-Q SCH (22:40)
[2019-10-16] MEDS: SENNOSIDES 8.6 MG TAB PO SCH (22:45)
[2019-10-16] MEDS: MELATONIN 5 MG TAB PO SCH (22:46)
[2019-10-16] MEDS: MIRTAZAPINE 15 MG TAB FEEDTUBE SCH (22:53)
[2019-10-17 07:14] LABS: Hematocrit 40.8 % (35.5-45.6); Hemoglobin 12.9 gm/dl (11.8-15.2); Mean Corpuscular HGB Conc 32 % (32-34); Mean Corpuscular Volume 77 fl (84-94); Platelet Count 192 K/mm3 (140-440); Red Blood Count 5.31 M/mm3 (3.65-5.03); Red Cell Distribution Width 16.3 % (13.2-15.2)
[2019-10-17 07:33] LABS: BUN/Creatinine Ratio 12; Blood Urea Nitrogen 12 mg/dL (9-20); Calcium 9.6 mg/dL (8.4-10.2); Hemolysis Index 3
[2019-10-17] MEDS: POLYETHYLENE GLYCOL 3350 17 GM POWDER FEEDTUBE SCH (08:30)
[2019-10-17] MEDS: AMANTADINE FEEDTUBE SCH ×2 (08:30→14:30)
[2019-10-17] MEDS: amLODIPine 10 MG TAB FEEDTUBE SCH (08:30)
[2019-10-17] MEDS: FOLIC ACID 1 MG TAB PO SCH (08:31)
[2019-10-17] MEDS: LISINOPRIL 40 MG TAB FEEDTUBE SCH (08:31)
[2019-10-17] MEDS: hydrALAZINE 100 MG TAB FEEDTUBE SCH ×3 (08:31→22:08)
[2019-10-17] MEDS: FAMOTIDINE 20 MG TAB FEEDTUBE SCH ×2 (08:31→22:08)
[2019-10-17] MEDS: FERROUS SULFATE 325 MG TAB PO SCH ×2 (08:31→22:08)
[2019-10-17] MEDS: APIXABAN 5 MG TAB FEEDTUBE SCH ×3 (08:31→22:07)
[2019-10-17] MEDS: carvediloL 6.25 MG TAB FEEDTUBE SCH ×2 (08:31→22:08)
[2019-10-17] MEDS: INSULIN LISPRO 100 UNIT/ML SUB-Q SCH ×3 (08:32→22:11)
[2019-10-17] MEDS: ASCORBIC ACID 500 MG TAB PO SCH ×2 (08:32→22:08)
[2019-10-17] MEDS: ONDANSETRON 4 MG ODT TAB PO PRN (10:55)
[2019-10-17] MEDS ORDERED: MINERAL OIL ENEMA 133 ML PR ONE ×2 (12:05→15:00)
--- NOTE | 2019-10-17 16:31 | Progress Note ---
Subjective Date of service: 10/17/19 Principal diagnosis: CVA Interval history: 64-year-old male who presented to [facility] on August 11 with acute onset of left-sided weakness. 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 Alteplase was given on 08/11. He developed delayed cerebral edema and hemorrhagic conversion. CT head showed large right-sided MCA territory infarct with scattered hyperdensities and cerebral edema with midline shift on August 13. August 15 there is an increase to 7 mm from the previous [address] with new petechial hemorrhages. Neurosurgery was consulted and ultimately required a decompressive hemicraniectomy on August 22. He continued to have increased bleeding prompting aspirin to be held on August 25. Patient was transferred from the ICU to neurology general floor on August 27. MRI brain on August 30 showed evolving large right MCA infarct with hemorrhagic transformation. Stable appearing midline shift. Hematoma superficial to craniotomy in the right temporalis muscle. On 08/30 he underwent Ultrasound Doppler venous left upper extremity showed a nonocclusive deep vein thrombosis in the left axillary vein and a thrombus within the superficial basilic vein. Ultrasound Doppler venous left lower extremity showed chronic DVT of the left common femoral vein on 09/04 for which an IVC filter was placed on September 06. PEG was placed on September 10 due to poor oral intake and dysphasia. EKG and telemetry monitoring showed paroxysmal atrial fibrillation. TTE showed an ejection fraction of 50 to 55% with severely dilated left atrium and impaired left ventricle relaxation. Patient was tolerating a bolus tube feed diet of Nutren 1.5 max of 5 cans/day with free water flushes 100 mils before and after each feed if the patient ate less than 25% bolus 2 cans, 50% bolus 1 can, greater than 50% no bolus. Stroke labs at outside hospital A1c 7.1, TSH 1.375, total cholesterol 198, LDL 132, RPR nonreactive, INR 1.1. Patient was transition to Eliquis as a secondary stroke prevention and anticoagulation for atrial fibrillation. He was taken off of aspirin due to risk of bleeding prior to leaving the hospital and going to the custodial facility. The physicians at the hospital also made recommendation for considering a watchman device as an outpatient. 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 After the patient was stabilized he was transferred to subacute rehabilitation. Family visited our inpatient rehabilitation and was unhappy with his lack of progress at subacute and noted that he has been participating more with therapy but do not feel like he is getting the amount of therapy that he could truly benefit from. After discussion with the family as well as the facility and review of the past we opted to accept the patient to give him an opportunity to participate in a more intensive therapy schedule. Several discussions had with family on final disposition and ensuring that he would be going home regardless of how much recovery we were able to make. Patient was transferred to us from a subacute rehab where he has been since September 20. After the patient was medically stabilized they were transferred for further rehabilitation. All available medical records have been reviewed. Plan of care, prognosis, expectations, secondary stroke prevention, discharge planning was discussed with patient and family (2 daughters). Day prior to admission 48 minutes were spent reviewing all available records from the outside hospital as well as the custodial facility in preparation for transfer of the patient to acute inpatient rehabilitation. Interval history: Patient is participating in therapy and making slow progress. Taking rest breaks as needed. -BM. Denies pain, palpitations, dyspnea, cough, N/V, or joint pain. All records, vitals, labs and medications were reviewed. No other issues per patient, nursing or therapy. CVA: Patient making progress with therapy. Continue to monitor for worsening neurologic function. Continue secondary stroke prevention. No change in hemiplegia, no spasticity, no change in dysphagia. Hemicraniectomy: Sunken, helmet on when out of bed, well-healed continue to monitor Constipation: He has not had a bowel movement since October 09. Increasing medications, monitor. Patient has had nausea and vomiting recently. Will obtain KUB tomorrow if we do not have any success overnight. Paroxysmal atrial fibrillation: Denies palpitations, rate controlled, tolerating anticoagulation. Continue to monitor Hypertension: Blood pressures been in a good range. Continue to monitor Diabetes: Glucose checks have been reasonable. Continue to monitor and adjust insulin as needed based on oral intake. Anemia: Hemoglobin level has normalized, however he is still microcytic. Nutrition: Patient has decreased oral intake due to constipation. May need to look to utilize PEG tube for nutritional supplementation. At this point his lab values are stable but may also utilize IV fluids if they begin to worsen. We will continue to monitor and continue appetite stimulant. Cognition: Continue amantadine and monitor for improvement. Patient seems alert and more interactive today than he has previously. All records, vitals, labs and medications were reviewed. No other issues per patient, nursing or therapy. Team conference: Patient discussed in team conference today. Making slow progress with therapy and is still having issues with sitting balance. We will continue to improve as much as possible as we can. No return seen on the hemiplegic side at this point however we are also not seeing worsening signs or symptoms. At this point we will attempt to get family in as soon as possible for intensive family training. Our understanding from the family was that they are going to take him home regardless and at this point we would need to make sure that they are well trained on proper use of Ana lift and being able to transfer and care for the patient. Will possibly look to DC sometime next week after family has had adequate training. Objective - Exam Narrative Exam: MUSCULOSKELETAL SPECIALTY EXAM CONSTITUTIONAL: Well developed, well nourished, appropriately groomed. LEFT hand dominant. Head: Right craniectomy site sunken with mild dependent swelling at the base, soft RESPIRATORY: Clear to auscultation bilaterally, no increased work of breathing CARDIOVASCULAR: Regular Rate/ Rhythm, no swelling, edema or tenderness in BUE or BLE. All extremities warm. GI: + bowel sounds, soft, NTTP, nondistended. PEG tube present INTEGUMENTARY: Normal, no lesion, rash, masses or bruising noted in extremities. MUSCULOSKELETAL: Left shoulder subluxation, otherwise BUE and BLE normal without defect, crepitus, subluxation, effusion, arthritic changes or TTP. R 4+/5 L 0/5 ROM decreased on left, normal on right Tone flaccid on left, normal on right NEURO: CN II : Right visual colmenares full to confrontation, left blind CN III, IV, : EOMI on the right but right eye does preferentially veer towards the lateral aspect CN V : Facial sensation intact decreased on left CN VII : Slight left facial droop CN XI : Left shoulder shrug absent Sensation impaired on left with extinction, normal on right No tremor noted in 4 extremities. Naming and repetition intact. Follows 2 step commands. Aphasia not appreciated Dysarthria not appreciated Dysphagia present Neglect to left side with activity, right gaze preference. Does recognize the left and address it, just can not attend to it. POSTURE and GAIT: Sitting posture okay but is decreased with ability to maintain. Gait deferred. Sitting balance poor, starting to push towards the left PSYCH: Alert, oriented x3, affect appears flattened. Insight appears mostly intact. - Constitutional Vitals: Vital Signs - 12hr 10/17/19 10/17/19 10/17/19 07:15 08:30 08:31 Temperature 98.4 F Pulse Rate 67 62 62 Respiratory 18 Rate Blood Pressure 148/72 148/72 148/62 O2 Sat by Pulse 95 Oximetry - Allied health notes Allied health notes reviewed: nursing, PT, ST, OT FIMS assessment as documented by PT/OT/ST: Social interaction/Memory/Problem solving Social Interaction FIM Score 3. Moderate Assistance (Interacts appropriately 50-74%.) Memory FIM Score 2. Maximal Assistance (Recognizes and remembers 25-49%.) Problem Solving FIM Score 3. Moderate Assistance (Solves routine problems 50-74%.) Transfers Mode of Locomotion: Wheelchair Bed/Chair/Wheelchair Transfers 2. Maximal Assistance (Patient = 25% or more) FIM Score Dressing-Upper body Upper Body Dressing Device Manager Inventory Management Patient retrieves clothing No items: Patient applies/removes UE No prosthesis or orthosis: Upper Body Dressing FIM Score 2. Maximal Assistance (Patient = 25% or more) Dressing-lower body Patient retrieves clothing No items: Patient applies/removes LE No prosthesis or orthosis: Lower Body Dressing FIM Score 2. Maximal Assistance (Patient = 25% or more) - Labs CBC & Chem 7: 10/17/19 06:48 10/17/19 06:48 Labs: Laboratory Results - last 72 hr 10/14/19 10/14/19 10/15/19 16:29 21:46 06:24 WBC RBC Hgb Hct MCV MCH MCHC RDW Plt Count Sodium Potassium Chloride Carbon Dioxide Anion Gap BUN Creatinine Estimated GFR BUN/Creatinine Ratio Glucose POC Glucose 197 H 149 H 93 Calcium 10/15/19 10/15/19 10/15/19 11:27 16:11 21:15 WBC RBC Hgb Hct MCV MCH MCHC RDW Plt Count Sodium Potassium Chloride Carbon Dioxide Anion Gap BUN Creatinine Estimated GFR BUN/Creatinine Ratio Glucose POC Glucose 173 H 129 H 211 H Calcium 10/16/19 10/16/19 10/16/19 07:14 11:29 16:22 WBC RBC Hgb Hct MCV MCH MCHC RDW Plt Count Sodium Potassium Chloride Carbon Dioxide Anion Gap BUN Creatinine Estimated GFR BUN/Creatinine Ratio Glucose POC Glucose 113 H 165 H 165 H Calcium 10/16/19 10/17/19 10/17/19 22:45 06:48 06:48 WBC 4.9 RBC 5.31 H Hgb 12.9 Hct 40.8 MCV 77 L MCH 24 L MCHC 32 RDW 16.3 H Plt Count 192 Sodium 139 Potassium 4.0 Chloride 99.1 Carbon Dioxide 24 Anion Gap 20 BUN 12 Creatinine 1.0 Estimated GFR > 60 BUN/Creatinine Ratio 12 Glucose 130 H POC Glucose 117 H Calcium 9.6 10/17/19 10/17/19 10/17/19 07:26 11:35 16:31 WBC RBC Hgb Hct MCV MCH MCHC RDW Plt Count Sodium Potassium Chloride Carbon Dioxide Anion Gap BUN Creatinine Estimated GFR BUN/Creatinine Ratio Glucose POC Glucose 148 H 184 H 112 H Calcium Assessment and Plan CVA, MCA, embolic with hemorrhagic conversion left dominant hemiplegia: Flaccid left side. Continue secondary stroke prevention (antithrombotic, statin (goal LDLC <70), BP control (goal less than 140/90), GLU control (goal A1c <7), and lifestyle modification). Monitor for recurrent stroke or post-stroke recrudescence. Continue neuromotor therapy as above. Family training when available. Monitor for post-stroke depression, cognitive deficits, seizure, dysphagia, aphasia, shoulder-hand syndrome, sensory deficits, spasticity, bowel/bladder deficits, sleep disturbance, vision deficits, pressure sores and DVT. Prognosis for recovery and secondary stroke prevention discussed with patient and family. Follow-up with neurology. No driving until cleared by neurologist. Paroxysmal atrial fibrillation: Continue rate control and anticoagulation. Adjust medications as needed. Monitor for palpitations, dyspnea, lightheadedness, chest pain, fatigue. EKG as needed. Diastolic dysfunction: Monitor for any exacerbation of diastolic dysfunction. Hypertension: Continue medications. Monitor blood pressure every 4 hours while awake. Adjust medications as needed for normotension and hold for hypotension. Diabetes type 2: Continue current diet. Monitor blood glucose before meals and at bedtime. Sliding scale insulin. Adjust medications as needed for normoglycemia. Skin checks per nursing to identify any new wounds. Left upper extremity and left lower extremity DVT: Continue Eliquis. Monitor for any signs of worsening condition. Patient does have a IVC filter installed as well. Dysphagia: Eating all meals and not taking any PEG tubes currently only thing through the PEG is medication. Continue current diet. VP LAB to monitor and advance diet as able, and perform FEES, MBSS or e-stim as needed. Shoulder subluxation: Continue strengthening exercises for improvement of shoulder subluxation. Arm tray while in wheelchair. Prop the arm on pillows including hand for elevation while in bed. Consider kinesiotaping and/or e- stim. Anemia: Microcytic. Replace iron, folate, vitamin C. monitor. Hemoglobin has recovered however still very microcytic Cognition: Continue amantadine at breakfast as well as lunch. Patient was previously getting this every 12 hours we should see a little bit better tolerance for it scheduled appropriately. Monitor for improvement. Supportive care and therapy. Family involvement as available. Continue reminders throughout therapy and the day to ensure patient safety. Altered sensation on the left: Monitor for skin wounds. Improve patient's ability to self monitor placement of limbs to avoid injury. Medication as needed for painful paresthesias. Poor nutritional intake: Check nutrition labs including pre-albumin. Monitor oral intake and weights. Patient is on appetite stimulant, continue Remeron. Right craniectomy: Currently sunken with very slight CSF collection at the base of the craniectomy. Monitor for any changes in volume and notified neurosurgeon if this occurs. Helmet on anytime out of bed. When out of bed with helmet on need to monitor periodically for swelling. ADL dysfunction: OT will work on improving ability to perform ADLs (including assistive devices) to increase independence and decrease caregiver burden and improve functional transfers and mobility training. Difficulty walking: PT will work on gait training and proper use of assistive devices and advance as appropriate to use of stairs and outside ambulation on uneven surfaces. Unsteadiness on feet: PT will work on improving static and dynamic sitting and standing balance as well as proper use of assistive devices to decrease risk of falls. Abnormality of gait: PT will work to improve safety and efficiency of gait through neuromotor training and gait training along with instruction on proper use of assistive devices. Muscle weakness: PT & OT will work on strengthening exercises to improve functional strength including mixture of closed and open kinetic chain exercises. Debility: PT & OT will work on improving overall functional status to improve participation with ADLs, mobility and social involvement. Fatigue: PT & OT will work on improving endurance through aerobic exercises and therapeutic activity while monitoring patients tolerance for activity and vital signs as needed. DVT ppx: Eliquis for atrial fibrillation Pain: Continue physical modalities in therapy and pain medications as needed to achieve functional pain control. Sleep: Monitor and address as needed. Melatonin Bowel: Monitor and address as needed. Increased medications, scheduled. Continue to monitor Appetite: Monitor and address as needed. Mirtazapine Discharge planning: Pending therapy progress and care plan meeting. Will continue discussion with therapy team, SW, patient and family. Restrictions/ Precautions: Falls, craniectomy (helmet on when out of bed), low bed, decreased sensation on left WB status: FWB Functional Hx: ADLs: Independent Cognition: Independent Mobility: No AD Barriers to Discharge: Decreased mobility and ability to perform self care, balance deficits, weakness, craniectomy, left dominant hemiplegia, dysphagia Estimated Length of Stay: 1421 days Discharge Destination: Home with family
[2019-10-17] MEDS: MIRTAZAPINE 15 MG TAB FEEDTUBE SCH (22:05)
[2019-10-17] MEDS: MELATONIN 5 MG TAB PO SCH (22:07)
[2019-10-17] MEDS: SENNOSIDES 8.6 MG TAB PO SCH (22:07)
[2019-10-17] MEDS: INSULIN GLARGINE 100 UNITS/ML SUB-Q SCH (22:09)
[2019-10-18] MEDS: POLYETHYLENE GLYCOL 3350 17 GM POWDER FEEDTUBE SCH (08:07)
[2019-10-18] MEDS: amLODIPine 10 MG TAB FEEDTUBE SCH (08:07)
[2019-10-18] MEDS: FOLIC ACID 1 MG TAB PO SCH (08:07)
[2019-10-18] MEDS: LISINOPRIL 40 MG TAB FEEDTUBE SCH (08:07)
[2019-10-18] MEDS: hydrALAZINE 100 MG TAB FEEDTUBE SCH ×4 (08:07→21:58)
[2019-10-18] MEDS: ASCORBIC ACID 500 MG TAB PO SCH ×2 (08:07→21:58)
[2019-10-18] MEDS: FERROUS SULFATE 325 MG TAB PO SCH ×2 (08:07→21:58)
[2019-10-18] MEDS: carvediloL 6.25 MG TAB FEEDTUBE SCH ×2 (08:07→21:58)
[2019-10-18] MEDS: AMANTADINE FEEDTUBE SCH ×2 (08:08→12:46)
[2019-10-18] MEDS: FAMOTIDINE 20 MG TAB FEEDTUBE SCH ×2 (08:08→21:57)
[2019-10-18] MEDS: APIXABAN 5 MG TAB FEEDTUBE SCH ×3 (08:11→21:58)
[2019-10-18] MEDS: INSULIN LISPRO 100 UNIT/ML SUB-Q SCH ×4 (08:18→21:49)
[2019-10-18] MEDS: traMADol 50 MG TAB FEEDTUBE PRN ×2 (11:41→22:06)
[2019-10-18] MEDS ORDERED: SORBITOL 70% ORAL SOLN 30 ML PO ONE (12:00)
[2019-10-18] MEDS ORDERED: SORBITOL 70% ORAL SOLN 30 ML PR ONE (12:00)
[2019-10-18 14:24] LABS: BUN/Creatinine Ratio 11; Blood Urea Nitrogen 14 mg/dL (9-20); Calcium 10.1 mg/dL (8.4-10.2); Hemolysis Index 13
--- NOTE | 2019-10-18 14:32 | Progress Note ---
Subjective Date of service: 10/18/19 Principal diagnosis: CVA Interval history: 64-year-old male who presented to [facility] on August 11 with acute onset of left-sided weakness. 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 Alteplase was given on 08/11. He developed delayed cerebral edema and hemorrhagic conversion. CT head showed large right-sided MCA territory infarct with scattered hyperdensities and cerebral edema with midline shift on August 13. August 15 there is an increase to 7 mm from the previous [address] with new petechial hemorrhages. Neurosurgery was consulted and ultimately required a decompressive hemicraniectomy on August 22. He continued to have increased bleeding prompting aspirin to be held on August 25. Patient was transferred from the ICU to neurology general floor on August 27. MRI brain on August 30 showed evolving large right MCA infarct with hemorrhagic transformation. Stable appearing midline shift. Hematoma superficial to craniotomy in the right temporalis muscle. On 08/30 he underwent Ultrasound Doppler venous left upper extremity showed a nonocclusive deep vein thrombosis in the left axillary vein and a thrombus within the superficial basilic vein. Ultrasound Doppler venous left lower extremity showed chronic DVT of the left common femoral vein on 09/04 for which an IVC filter was placed on September 06. PEG was placed on September 10 due to poor oral intake and dysphasia. EKG and telemetry monitoring showed paroxysmal atrial fibrillation. TTE showed an ejection fraction of 50 to 55% with severely dilated left atrium and impaired left ventricle relaxation. Patient was tolerating a bolus tube feed diet of Nutren 1.5 max of 5 cans/day with free water flushes 100 mils before and after each feed if the patient ate less than 25% bolus 2 cans, 50% bolus 1 can, greater than 50% no bolus. Stroke labs at outside hospital A1c 7.1, TSH 1.375, total cholesterol 198, LDL 132, RPR nonreactive, INR 1.1. Patient was transition to Eliquis as a secondary stroke prevention and anticoagulation for atrial fibrillation. He was taken off of aspirin due to risk of bleeding prior to leaving the hospital and going to the assisted facility. The physicians at the hospital also made recommendation for considering a watchman device as an outpatient. 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 After the patient was stabilized he was transferred to subacute rehabilitation. Family visited our inpatient rehabilitation and was unhappy with his lack of progress at subacute and noted that he has been participating more with therapy but do not feel like he is getting the amount of therapy that he could truly benefit from. After discussion with the family as well as the facility and review of the past we opted to accept the patient to give him an opportunity to participate in a more intensive therapy schedule. Several discussions had with family on final disposition and ensuring that he would be going home regardless of how much recovery we were able to make. Patient was transferred to us from a subacute rehab where he has been since September 20. After the patient was medically stabilized they were transferred for further rehabilitation. All available medical records have been reviewed. Plan of care, prognosis, expectations, secondary stroke prevention, discharge planning was discussed with patient and family (2 daughters). Day prior to admission 48 minutes were spent reviewing all available records from the outside hospital as well as the assisted facility in preparation for transfer of the patient to acute inpatient rehabilitation. Interval history: Patient is participating in therapy and making slow progress. Taking rest breaks as needed. -BM, error in EMR. Afebrile. Denies pain, palpitations, dyspnea, cough, N/V, or joint pain. All records, vitals, labs and medications were reviewed. No other issues per patient, nursing or therapy. CVA: Patient making progress with therapy. Continue to monitor for worsening neurologic function. Continue secondary stroke prevention. No change in hemiplegia, no spasticity, no change in dysphagia. Hemicraniectomy: Sunken, helmet on when out of bed, well-healed continue to monitor Constipation: He has not had a bowel movement since October 09. Add sorbitol PO and MS, monitor. Patient has had nausea and vomiting recently, none today. Will obtain KUB tomorrow. Paroxysmal atrial fibrillation: Denies palpitations, rate controlled, tolerating anticoagulation. Continue to monitor Hypertension: Blood pressures been in a good range. Continue to monitor Diabetes: Glucose checks have been reasonable. Continue to monitor and adjust insulin as needed based on oral intake. Anemia: Hemoglobin level has normalized, however he is still microcytic. Nutrition: Patient has decreased oral intake due to constipation. May need to look to utilize PEG tube for nutritional supplementation. At this point his lab values are stable but may also utilize IV fluids if they begin to worsen. We will continue to monitor and continue appetite stimulant. Cognition: Continue amantadine and monitor for improvement. Patient seems alert and more interactive today than he has previously. All records, vitals, labs and medications were reviewed. No other issues per patient, nursing or therapy. Objective - Exam Narrative Exam: MUSCULOSKELETAL SPECIALTY EXAM CONSTITUTIONAL: Well developed, well nourished, appropriately groomed. LEFT hand dominant. Head: Right craniectomy site sunken with mild dependent swelling at the base, soft RESPIRATORY: Clear to auscultation bilaterally, no increased work of breathing CARDIOVASCULAR: Regular Rate/ Rhythm, no swelling, edema or tenderness in BUE or BLE. All extremities warm. GI: + bowel sounds, soft, NTTP, nondistended. PEG tube present INTEGUMENTARY: Normal, no lesion, rash, masses or bruising noted in extremities. MUSCULOSKELETAL: Left shoulder subluxation, otherwise BUE and BLE normal without defect, crepitus, subluxation, effusion, arthritic changes or TTP. R 4+/5 L 0/5 ROM decreased on left, normal on right Tone flaccid on left, normal on right NEURO: CN II : Right visual colmenares full to confrontation, left blind CN III, IV, : EOMI on the right but right eye does preferentially veer towards the lateral aspect CN V : Facial sensation intact decreased on left CN VII : Slight left facial droop CN XI : Left shoulder shrug absent Sensation impaired on left with extinction, normal on right No tremor noted in 4 extremities. Naming and repetition intact. Follows 2 step commands. Aphasia not appreciated Dysarthria not appreciated Dysphagia present Neglect to left side with activity, right gaze preference. Does recognize the left and address it, just can not attend to it. POSTURE and GAIT: Sitting posture okay but is decreased with ability to maintain. Gait deferred. Sitting balance poor, starting to push towards the left PSYCH: Alert, oriented x3, affect appears flattened. Insight appears mostly intact. - Constitutional Vitals: Vital Signs - 12hr 10/18/19 07:46 Temperature 98.5 F Pulse Rate 60 Respiratory 18 Rate Blood Pressure 140/75 O2 Sat by Pulse 96 Oximetry - Allied health notes Allied health notes reviewed: nursing, PT, ST, OT FIMS assessment as documented by PT/OT/ST: Social interaction/Memory/Problem solving Social Interaction FIM Score 3. Moderate Assistance (Interacts appropriately 50-74%.) Memory FIM Score 3. Moderate Assistance (Recognizes and remembers 50-74%.) Problem Solving FIM Score 3. Moderate Assistance (Solves routine problems 50-74%.) Transfers Mode of Locomotion: Wheelchair Bed/Chair/Wheelchair Transfers 2. 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 Maximal Assistance (Patient = 25% or more) Dressing-lower body Patient retrieves clothing No items: Patient applies/removes LE No prosthesis or orthosis: Lower Body Dressing FIM Score 2. Maximal Assistance (Patient = 25% or more) - Labs CBC & Chem 7: 10/19/19 07:10 10/19/19 07:10 Labs: Laboratory Results - last 72 hr 10/15/19 10/15/19 10/16/19 16:11 21:15 07:14 WBC RBC Hgb Hct MCV MCH MCHC RDW Plt Count Sodium Potassium Chloride Carbon Dioxide Anion Gap BUN Creatinine Estimated GFR BUN/Creatinine Ratio Glucose POC Glucose 129 H 211 H 113 H Calcium 10/16/19 10/16/19 10/16/19 11:29 16:22 22:45 WBC RBC Hgb Hct MCV MCH MCHC RDW Plt Count Sodium Potassium Chloride Carbon Dioxide Anion Gap BUN Creatinine Estimated GFR BUN/Creatinine Ratio Glucose POC Glucose 165 H 165 H 117 H Calcium 10/17/19 10/17/19 10/17/19 06:48 06:48 07:26 WBC 4.9 RBC 5.31 H Hgb 12.9 Hct 40.8 MCV 77 L MCH 24 L MCHC 32 RDW 16.3 H Plt Count 192 Sodium 139 Potassium 4.0 Chloride 99.1 Carbon Dioxide 24 Anion Gap 20 BUN 12 Creatinine 1.0 Estimated GFR > 60 BUN/Creatinine Ratio 12 Glucose 130 H POC Glucose 148 H Calcium 9.6 10/17/19 10/17/19 10/17/19 11:35 16:31 21:17 WBC RBC Hgb Hct MCV MCH MCHC RDW Plt Count Sodium Potassium Chloride Carbon Dioxide Anion Gap BUN Creatinine Estimated GFR BUN/Creatinine Ratio Glucose POC Glucose 184 H 112 H 216 H Calcium 10/18/19 10/18/19 07:58 13:48 WBC RBC Hgb Hct MCV MCH MCHC RDW Plt Count Sodium 141 Potassium 4.6 Chloride 102.6 Carbon Dioxide 23 Anion Gap 20 BUN 14 Creatinine 1.3 Estimated GFR > 60 BUN/Creatinine Ratio 11 Glucose 167 H POC Glucose 158 H Calcium 10.1 Assessment and Plan CVA, MCA, embolic with hemorrhagic conversion left dominant hemiplegia: Flaccid left side. Continue secondary stroke prevention (antithrombotic, statin (goal LDLC <70), BP control (goal less than 140/90), GLU control (goal A1c <7), and lifestyle modification). Monitor for recurrent stroke or post-stroke recrudescence. Continue neuromotor therapy as above. Family training when available. Monitor for post-stroke depression, cognitive deficits, seizure, dysphagia, aphasia, shoulder-hand syndrome, sensory deficits, spasticity, bowel/bladder deficits, sleep disturbance, vision deficits, pressure sores and DVT. Prognosis for recovery and secondary stroke prevention discussed with patient and family. Follow-up with neurology. No driving until cleared by neurologist. Paroxysmal atrial fibrillation: Continue rate control and anticoagulation. Adjust medications as needed. Monitor for palpitations, dyspnea, lightheadedness, chest pain, fatigue. EKG as needed. Diastolic dysfunction: Monitor for any exacerbation of diastolic dysfunction. Hypertension: Continue medications. Monitor blood pressure every 4 hours while awake. Adjust medications as needed for normotension and hold for hypotension. Diabetes type 2: Continue current diet. Monitor blood glucose before meals and at bedtime. Sliding scale insulin. Adjust medications as needed for normoglycemia. Skin checks per nursing to identify any new wounds. Left upper extremity and left lower extremity DVT: Continue Eliquis. Monitor for any signs of worsening condition. Patient does have a IVC filter installed as well. Dysphagia: Eating all meals and not taking any PEG tubes currently only thing through the PEG is medication. Continue current diet. FIRE ALARM REPAIRER to monitor and advance diet as able, and perform FEES, MBSS or e-stim as needed. Shoulder subluxation: Continue strengthening exercises for improvement of shoulder subluxation. Arm tray while in wheelchair. Prop the arm on pillows including hand for elevation while in bed. Consider kinesiotaping and/or e- stim. Anemia: Microcytic. Replace iron, folate, vitamin C. monitor. Hemoglobin has recovered however still very microcytic Cognition: Continue amantadine at breakfast as well as lunch. Patient was previously getting this every 12 hours we should see a little bit better tolerance for it scheduled appropriately. Monitor for improvement. Supportive care and therapy. Family involvement as available. Continue reminders throughout therapy and the day to ensure patient safety. Altered sensation on the left: Monitor for skin wounds. Improve patient's ability to self monitor placement of limbs to avoid injury. Medication as needed for painful paresthesias. Poor nutritional intake: Check nutrition labs including pre-albumin. Monitor oral intake and weights. Patient is on appetite stimulant, continue Remeron. Right craniectomy: Currently sunken with very slight CSF collection at the base of the craniectomy. Monitor for any changes in volume and notified neurosurgeon if this occurs. Helmet on anytime out of bed. When out of bed with helmet on need to monitor periodically for swelling. ADL dysfunction: OT will work on improving ability to perform ADLs (including assistive devices) to increase independence and decrease caregiver burden and improve functional transfers and mobility training. Difficulty walking: PT will work on gait training and proper use of assistive devices and advance as appropriate to use of stairs and outside ambulation on uneven surfaces. Unsteadiness on feet: PT will work on improving static and dynamic sitting and standing balance as well as proper use of assistive devices to decrease risk of falls. Abnormality of gait: PT will work to improve safety and efficiency of gait through neuromotor training and gait training along with instruction on proper use of assistive devices. Muscle weakness: PT & OT will work on strengthening exercises to improve functional strength including mixture of closed and open kinetic chain exercises. Debility: PT & OT will work on improving overall functional status to improve participation with ADLs, mobility and social involvement. Fatigue: PT & OT will work on improving endurance through aerobic exercises and therapeutic activity while monitoring patients tolerance for activity and vital signs as needed. DVT ppx: Eliquis for atrial fibrillation Pain: Continue physical modalities in therapy and pain medications as needed to achieve functional pain control. Sleep: Monitor and address as needed. Melatonin Bowel: Monitor and address as needed. Increased medications, scheduled. Sorbitol PO & MS x1 dose. Continue to monitor Appetite: Monitor and address as needed. Mirtazapine Discharge planning: Pending therapy progress and care plan meeting. Will continue discussion with therapy team, SW, patient and family. Restrictions/ Precautions: Falls, craniectomy (helmet on when out of bed), low bed, decreased sensation on left WB status: FWB Functional Hx: ADLs: Independent Cognition: Independent Mobility: No AD Barriers to Discharge: Decreased mobility and ability to perform self care, balance deficits, weakness, craniectomy, left dominant hemiplegia, dysphagia Estimated Length of Stay: 1421 days Discharge Destination: Home with family
[2019-10-18 14:55] LABS: Hematocrit 41.4 % (35.5-45.6); Hemoglobin 13.2 gm/dl (11.8-15.2); Mean Corpuscular HGB Conc 32 % (32-34); Mean Corpuscular Volume 77 fl (84-94); Platelet Count 183 K/mm3 (140-440); Red Blood Count 5.36 M/mm3 (3.65-5.03); Red Cell Distribution Width 16.5 % (13.2-15.2)
[2019-10-18] MEDS: INSULIN GLARGINE 100 UNITS/ML SUB-Q SCH (21:49)
[2019-10-18] MEDS: MELATONIN 5 MG TAB PO SCH (21:58)
[2019-10-18] MEDS: SENNOSIDES 8.6 MG TAB PO SCH (21:59)
[2019-10-18] MEDS: MIRTAZAPINE 15 MG TAB FEEDTUBE SCH (22:03)
[2019-10-19 07:35] LABS: Hematocrit 39.2 % (35.5-45.6); Hemoglobin 12.5 gm/dl (11.8-15.2); Mean Corpuscular HGB Conc 32 % (32-34); Mean Corpuscular Volume 77 fl (84-94); Platelet Count 175 K/mm3 (140-440); Red Blood Count 5.11 M/mm3 (3.65-5.03); Red Cell Distribution Width 15.9 % (13.2-15.2)
[2019-10-19] MEDS: INSULIN LISPRO 100 UNIT/ML SUB-Q SCH ×5 (08:00→23:06)
[2019-10-19 08:15] LABS: BUN/Creatinine Ratio 11; Blood Urea Nitrogen 12 mg/dL (9-20); Calcium 9.6 mg/dL (8.4-10.2); Hemolysis Index 6
[2019-10-19] MEDS: AMANTADINE FEEDTUBE SCH ×2 (08:50→14:31)
[2019-10-19] MEDS: POLYETHYLENE GLYCOL 3350 17 GM POWDER FEEDTUBE SCH (08:50)
[2019-10-19] MEDS: FOLIC ACID 1 MG TAB PO SCH (08:50)
[2019-10-19] MEDS: ASCORBIC ACID 500 MG TAB PO SCH ×2 (09:10→22:58)
[2019-10-19] MEDS: FERROUS SULFATE 325 MG TAB PO SCH ×2 (09:10→22:57)
[2019-10-19] MEDS: FAMOTIDINE 20 MG TAB FEEDTUBE SCH ×2 (09:10→22:57)
[2019-10-19] MEDS: hydrALAZINE 100 MG TAB FEEDTUBE SCH ×3 (09:15→23:07)
[2019-10-19] MEDS: APIXABAN 5 MG TAB FEEDTUBE SCH ×2 (09:15→22:57)
[2019-10-19] MEDS: LISINOPRIL 40 MG TAB FEEDTUBE SCH (09:15)
[2019-10-19] MEDS: amLODIPine 10 MG TAB FEEDTUBE SCH (09:15)
--- NOTE | 2019-10-19 10:32 | XRay Report ---
ABDOMEN 1 VIEW(S) INDICATION / CLINICAL INFORMATION: Constipation and N/V follow up. COMPARISON: 10/15/2019 FINDINGS: TUBES / LINES: PEG tube projects of the stomach. BOWEL GAS PATTERN/EXTRALUMINAL GAS: There is a moderate amount of stool in the rectum with a small am ount of stool in the remainder the colon. No pneumatosis or secondary signs of free air. ADDITIONAL FINDINGS: No significant additional findings. Signer Name: Raghavendra Perez MD Signed: 10/19/2019 10:28 AM Workstation Name: [id number]
--- NOTE | 2019-10-19 13:58 | Progress Note ---
Subjective Date of service: 10/19/19 Principal diagnosis: CVA Interval history: 64-year-old male who presented to [facility] on August 11 with acute onset of left-sided weakness. 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 Alteplase was given on 08/11. He developed delayed cerebral edema and hemorrhagic conversion. CT head showed large right-sided MCA territory infarct with scattered hyperdensities and cerebral edema with midline shift on August 13. August 15 there is an increase to 7 mm from the previous [address] with new petechial hemorrhages. Neurosurgery was consulted and ultimately required a decompressive hemicraniectomy on August 22. He continued to have increased bleeding prompting aspirin to be held on August 25. Patient was transferred from the ICU to neurology general floor on August 27. MRI brain on August 30 showed evolving large right MCA infarct with hemorrhagic transformation. Stable appearing midline shift. Hematoma superficial to craniotomy in the right temporalis muscle. On 08/30 he underwent Ultrasound Doppler venous left upper extremity showed a nonocclusive deep vein thrombosis in the left axillary vein and a thrombus within the superficial basilic vein. Ultrasound Doppler venous left lower extremity showed chronic DVT of the left common femoral vein on 09/04 for which an IVC filter was placed on September 06. PEG was placed on September 10 due to poor oral intake and dysphasia. EKG and telemetry monitoring showed paroxysmal atrial fibrillation. TTE showed an ejection fraction of 50 to 55% with severely dilated left atrium and impaired left ventricle relaxation. Patient was tolerating a bolus tube feed diet of Nutren 1.5 max of 5 cans/day with free water flushes 100 mils before and after each feed if the patient ate less than 25% bolus 2 cans, 50% bolus 1 can, greater than 50% no bolus. Stroke labs at outside hospital A1c 7.1, TSH 1.375, total cholesterol 198, LDL 132, RPR nonreactive, INR 1.1. Patient was transition to Eliquis as a secondary stroke prevention and anticoagulation for atrial fibrillation. He was taken off of aspirin due to risk of bleeding prior to leaving the hospital and going to the [facility] facility. The physicians at the hospital also made recommendation for considering a watchman device as an outpatient. 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 After the patient was stabilized he was transferred to subacute rehabilitation. Family visited our inpatient rehabilitation and was unhappy with his lack of progress at subacute and noted that he has been participating more with therapy but do not feel like he is getting the amount of therapy that he could truly benefit from. After discussion with the family as well as the facility and review of the past we opted to accept the patient to give him an opportunity to participate in a more intensive therapy schedule. Several discussions had with family on final disposition and ensuring that he would be going home regardless of how much recovery we were able to make. Patient was transferred to us from a subacute rehab where he has been since September 20. After the patient was medically stabilized they were transferred for further rehabilitation. All available medical records have been reviewed. Plan of care, prognosis, expectations, secondary stroke prevention, discharge planning was discussed with patient and family (2 daughters). Day prior to admission 48 minutes were spent reviewing all available records from the outside hospital as well as the [facility] facility in preparation for transfer of the patient to acute inpatient rehabilitation. Interval history: Patient is participating in therapy and making slow progress. Taking rest breaks as needed. +BM. Afebrile. Denies palpitations, dyspnea, cough, N/V. Left shoulder pain from sublux. worse when up or if not supported. Will start lidoderm All records, vitals, labs and medications were reviewed. No other issues per patient, nursing or therapy. CVA: Patient making progress with therapy. Continue to monitor for worsening neurologic function. Continue secondary stroke prevention. No change in hemipl egia, no spasticity, no change in dysphagia. Left shoulder sublux: painful, start lidoderm and monitor. Discussed again that he needs to keep it supported Hemicraniectomy: Sunken, helmet on when out of bed, well-healed continue to monitor Constipation: Multiple BMs with sorbitol. Pt feels better. KUB improved with less stool burden. Contain standard bowel meds and monitor for improvement Paroxysmal atrial fibrillation: Denies palpitations, rate controlled, tolerating anticoagulation. Continue to monitor Hypertension: Blood pressures been in a good range. Continue to monitor Diabetes: Glucose checks have been reasonable. Continue to monitor and adjust insulin as needed based on oral intake. Anemia: Hemoglobin level has normalized, however he is still microcytic. Nutrition: Oral intake has improved somewhat. May need to look to utilize PEG tube for nutritional supplementation. We will continue to monitor and continue appetite stimulant. Cognition: Continue amantadine and monitor for improvement. Patient seems alert and more interactive today than he has previously. All records, vitals, labs and medications were reviewed. No other issues per patient, nursing or therapy. Objective - Exam Narrative Exam: MUSCULOSKELETAL SPECIALTY EXAM CONSTITUTIONAL: Well developed, well nourished, appropriately groomed. LEFT hand dominant. Head: Right craniectomy site sunken with mild dependent swelling at the base, soft RESPIRATORY: Clear to auscultation bilaterally, no increased work of breathing CARDIOVASCULAR: Regular Rate/ Rhythm, no swelling, edema or tenderness in BUE or BLE. All extre mities warm. GI: + bowel sounds, soft, NTTP, nondistended. PEG tube present INTEGUMENTARY: Normal, no lesion, rash, masses or bruising noted in extremities. MUSCULOSKELETAL: Left shoulder subluxation, otherwise BUE and BLE normal without defect, crepitus, subluxation, effusion, arthritic changes or TTP. R 4+/5 L 0/5 ROM decreased on left, normal on right Tone flaccid on left, normal on right NEURO: CN II : Right visual colmenares full to confrontation, left blind CN III, IV, : EOMI on the right but right eye does preferentially veer towards the lateral aspect CN V : Facial sensation intact decreased on left CN VII : Slight left facial droop CN XI : Left shoulder shrug absent Sensation impaired on left with extinction, normal on right No tremor noted in 4 extremities. Naming and repetition intact. Follows 2 step commands. Aphasia not appreciated Dysarthria not appreciated Dysphagia present Neglect to left side with activity, right gaze preference. Does recognize the left and address it, just can not attend to it. POSTURE and GAIT: Sitting posture okay but is decreased with ability to maintain. Gait deferred. Sitting balance poor, starting to push towards the left PSYCH: Alert, oriented x3, affect appears flattened. Insight appears mostly intact. - Constitutional Vitals: Vital Signs - 12hr 10/19/19 10/19/19 10/19/19 02:37 07:40 11:19 Temperature 98.1 F 97.5 F L Pulse Rate 58 L 33 L Respiratory 20 16 18 Rate Blood Pressure 138/71 139/70 O2 Sat by Pulse 98 100 Oximetry 10/19/19 11:20 Temperature Pulse Rate 75 Respiratory Rate Blood Pressure O2 Sat by Pulse Oximetry - Allied health notes Allied health notes reviewed: nursing, PT, ST, OT FIMS assessment as documented by PT/OT/ST: Social interaction/Memory/Problem solving Social Interaction FIM Score 3. Moderate Assistance (Interacts appropriately 50-74%.) Memory FIM Score 3. Moderate Assistance (Recognizes and remembers 50-74%.) Problem Solving FIM Score 3. Moderate Assistance (Solves routine problems 50-74%.) Transfers Mode of Locomotion: Wheelchair Bed/Chair/Wheelchair Transfers 2. Maximal Assistance (Patient = 25% or more) FIM Score Dressing-Upper body Upper Body Dressing Device Intranet Support Patient retrieves clothing No items: Patient applies/removes UE No prosthesis or orthosis: Upper Body Dressing FIM Score 2. Maximal Assistance (Patient = 25% or more) Dressing-lower body Patient retrieves clothing No items: Patient applies/removes LE No prosthesis or orthosis: Lower Body Dressing FIM Score 2. Maximal Assistance (Patient = 25% or more) - Labs CBC & Chem 7: 10/19/19 07:10 10/19/19 07:10 Labs: Laboratory Results - last 72 hr 10/16/19 10/16/19 10/17/19 16:22 22:45 06:48 WBC 4.9 RBC 5.31 H Hgb 12.9 Hct 40.8 MCV 77 L MCH 24 L MCHC 32 RDW 16.3 H Plt Count 192 Sodium Potassium Chloride Carbon Dioxide Anion Gap BUN Creatinine Estimated GFR BUN/Creatinine Ratio Glucose POC Glucose 165 H 117 H Calcium 10/17/19 10/17/19 10/17/19 06:48 07:26 11:35 WBC RBC Hgb Hct MCV MCH MCHC RDW Plt Count Sodium 139 Potassium 4.0 Chloride 99.1 Carbon Dioxide 24 Anion Gap 20 BUN 12 Creatinine 1.0 Estimated GFR > 60 BUN/Creatinine Ratio 12 Glucose 130 H POC Glucose 148 H 184 H Calcium 9.6 10/17/19 10/17/19 10/18/19 16:31 21:17 07:58 WBC RBC Hgb Hct MCV MCH MCHC RDW Plt Count Sodium Potassium Chloride Carbon Dioxide Anion Gap BUN Creatinine Estimated GFR BUN/Creatinine Ratio Glucose POC Glucose 112 H 216 H 158 H Calcium 10/18/19 10/18/19 10/18/19 11:51 13:48 13:48 WBC 6.6 RBC 5.36 H Hgb 13.2 Hct 41.4 MCV 77 L MCH 25 L MCHC 32 RDW 16.5 H Plt Count 183 Sodium 141 Potassium 4.6 Chloride 102.6 Carbon Dioxide 23 Anion Gap 20 BUN 14 Creatinine 1.3 Estimated GFR > 60 BUN/Creatinine Ratio 11 Glucose 167 H POC Glucose 183 H Calcium 10.1 10/18/19 10/18/19 10/19/19 16:21 21:48 07:10 WBC 6.4 RBC 5.11 H Hgb 12.5 Hct 39.2 MCV 77 L MCH 25 L MCHC 32 RDW 15.9 H Plt Count 175 Sodium Potassium Chloride Carbon Dioxide Anion Gap BUN Creatinine Estimated GFR BUN/Creatinine Ratio Glucose POC Glucose 156 H 130 H Calcium 10/19/19 10/19/19 10/19/19 07:10 07:52 11:15 WBC RBC Hgb Hct MCV MCH MCHC RDW Plt Count Sodium 135 L Potassium 3.7 Chloride 95.9 L Carbon Dioxide 25 Anion Gap 18 BUN 12 Creatinine 1.1 Estimated GFR > 60 BUN/Creatinine Ratio 11 Glucose 127 H POC Glucose 134 H 154 H Calcium 9.6 Assessment and Plan CVA, MCA, embolic with hemorrhagic conversion left dominant hemiplegia: Flaccid left side. Continue secondary stroke prevention (antithrombotic, statin (goal LDLC <70), BP control (goal less than 140/90), GLU control (goal A1c <7), and lifestyle modification). Monitor for recurrent stroke or post-stroke recrudescence. Continue neuromotor therapy as above. Family training when available. Monitor for post-stroke depression, cognitive deficits, seizure, dysphagia, aphasia, shoulder-hand syndrome, sensory deficits, spasticity, bowel/bladder deficits, sleep disturbance, vision deficits, pressure sores and DVT. Prognosis for recovery and secondary stroke prevention discussed with patient and family. Follow-up with neurology. No driving until cleared by neurologist. Paroxysmal atrial fibrillation: Continue rate control and anticoagulation. Adjust medications as needed. Monitor for palpitations, dyspnea, lightheadedness, chest pain, fatigue. EKG as needed. Diastolic dysfunction: Monitor for any exacerbation of diastolic dysfunction. Hypertension: Continue medications. Monitor blood pressure every 4 hours while awake. Adjust medications as needed for normotension and hold for hypotension. Diabetes type 2: Continue current diet. Monitor blood glucose before meals and at bedtime. Sliding scale insulin. Adjust medications as needed for normoglycemia. Skin checks per nursing to identify any new wounds. Left upper extremity and left lower extremity DVT: Continue Eliquis. Monitor for any signs of worsening condition. Patient does have a IVC filter installed as well. Dysphagia: Eating all meals and not taking any PEG tubes currently only thing through the PEG is medication. Continue current diet. TRANSMISSION MECHANIC to monitor and advance diet as able, and perform FEES, MBSS or e-stim as needed. Shoulder subluxation: Continue strengthening exercises for improvement of shoulder subluxation. Arm tray while in wheelchair. Prop the arm on pillows including hand for elevation while in bed. Consider kinesiotaping and/or e- stim. Lidoderm Anemia: Microcytic. Replace iron, folate, vitamin C. monitor. Hemoglobin has recovered however still very microcytic Cognition: Continue amantadine at breakfast as well as lunch. Patient was previously getting this every 12 hours we should see a little bit better tolerance for it scheduled appropriately. Monitor for improvement. Supportive care and therapy. Family involvement as available. Continue reminders throughout therapy and the day to ensure patient safety. Altered sensation on the left: Monitor for skin wounds. Improve patient's ability to self monitor placement of limbs to avoid injury. Medication as needed for painful paresthesias. Poor nutritional intake: Check nutrition labs including pre-albumin. Monitor oral intake and weights. Patient is on appetite stimulant, continue Remeron. Right craniectomy: Currently sunken with very slight CSF collection at the base of the craniectomy. Monitor for any changes in volume and notified neurosurgeon if this occurs. Helmet on anytime out of bed. When out of bed with helmet on need to monitor periodically for swelling. ADL dysfunction: OT will work on improving ability to perform ADLs (including assistive devices) to increase independence and decrease caregiver burden and improve functional transfers and mobility training. Difficulty walking: PT will work on gait training and proper use of assistive devices and advance as appropriate to use of stairs and outside ambulation on uneven surfaces. Unsteadiness on feet: PT will work on improving static and dynamic sitting and standing balance as well as proper use of assistive devices to decrease risk of falls. Abnormality of gait: PT will work to improve safety and efficiency of gait through neuromotor training and gait training along with instruction on proper use of assistive devices. Muscle weakness: PT & OT will work on strengthening exercises to improve funct ional strength including mixture of closed and open kinetic chain exercises. Debility: PT & OT will work on improving overall functional status to improve participation with ADLs, mobility and social involvement. Fatigue: PT & OT will work on improving endurance through aerobic exercises and therapeutic activity while monitoring patients tolerance for activity and vital signs as needed. DVT ppx: Eliquis for atrial fibrillation Pain: Continue physical modalities in therapy and pain medications as needed to achieve functional pain control. Sleep: Monitor and address as needed. Melatonin Bowel: Monitor and address as needed. Increased medications, scheduled. Sorbitol PO & OH x1 dose. Continue to monitor Appetite: Monitor and address as needed. Mirtazapine Discharge planning: Pending therapy progress and care plan meeting. Will continue discussion with therapy team, SW, patient and family. Restrictions/ Precautions: Falls, craniectomy (helmet on when out of bed), low bed, decreased sensation on left WB status: FWB Functional Hx: ADLs: Independent Cognition: Independent Mobility: No AD Barriers to Discharge: Decreased mobility and ability to perform self care, balance deficits, weakness, craniectomy, left dominant hemiplegia, dysphagia Estimated Length of Stay: 1421 days Discharge Destination: Home with family
[2019-10-19] MEDS: LIDOCAINE 5% 1 EACH PATCH TD SCH (14:27)
[2019-10-19] MEDS: carvediloL 6.25 MG TAB FEEDTUBE SCH ×2 (14:29→22:56)
[2019-10-19] MEDS: INSULIN GLARGINE 100 UNITS/ML SUB-Q SCH (22:55)
[2019-10-19] MEDS: SENNOSIDES 8.6 MG TAB PO SCH (22:56)
[2019-10-19] MEDS: MIRTAZAPINE 15 MG TAB FEEDTUBE SCH (22:56)
[2019-10-19] MEDS: MELATONIN 5 MG TAB PO SCH (22:58)
[2019-10-20] MEDS: INSULIN LISPRO 100 UNIT/ML SUB-Q SCH ×5 (08:10→23:27)
[2019-10-20] MEDS: ASCORBIC ACID 500 MG TAB PO SCH ×2 (08:50→22:39)
[2019-10-20] MEDS: AMANTADINE FEEDTUBE SCH ×2 (08:50→12:15)
[2019-10-20] MEDS: LISINOPRIL 40 MG TAB FEEDTUBE SCH (08:50)
[2019-10-20] MEDS: FERROUS SULFATE 325 MG TAB PO SCH ×2 (08:50→22:38)
[2019-10-20] MEDS: hydrALAZINE 100 MG TAB FEEDTUBE SCH ×3 (08:50→22:40)
[2019-10-20] MEDS: LIDOCAINE 5% 1 EACH PATCH TD SCH (08:50)
[2019-10-20] MEDS: POLYETHYLENE GLYCOL 3350 17 GM POWDER FEEDTUBE SCH (08:50)
[2019-10-20] MEDS: FOLIC ACID 1 MG TAB PO SCH (08:50)
[2019-10-20] MEDS: carvediloL 6.25 MG TAB FEEDTUBE SCH ×2 (08:50→22:39)
[2019-10-20] MEDS: FAMOTIDINE 20 MG TAB FEEDTUBE SCH ×2 (08:50→22:38)
[2019-10-20] MEDS: amLODIPine 10 MG TAB FEEDTUBE SCH (09:24)
[2019-10-20] MEDS: APIXABAN 5 MG TAB FEEDTUBE SCH ×2 (09:28→22:38)
[2019-10-20] MEDS: INSULIN GLARGINE 100 UNITS/ML SUB-Q SCH (22:36)
[2019-10-20] MEDS: SENNOSIDES 8.6 MG TAB PO SCH (22:38)
[2019-10-20] MEDS: MELATONIN 5 MG TAB PO SCH (22:38)
[2019-10-20] MEDS: MIRTAZAPINE 15 MG TAB FEEDTUBE SCH (22:47)
[2019-10-21] MEDS: hydrALAZINE 100 MG TAB FEEDTUBE SCH ×3 (08:00→22:34)
[2019-10-21] MEDS: INSULIN LISPRO 100 UNIT/ML SUB-Q SCH ×4 (08:04→22:33)
[2019-10-21] MEDS: FAMOTIDINE 20 MG TAB FEEDTUBE SCH ×2 (10:30→22:33)
[2019-10-21] MEDS: ASCORBIC ACID 500 MG TAB PO SCH ×2 (10:30→22:32)
[2019-10-21] MEDS: carvediloL 6.25 MG TAB FEEDTUBE SCH ×2 (10:30→22:33)
[2019-10-21] MEDS: APIXABAN 5 MG TAB FEEDTUBE SCH ×2 (10:30→22:33)
[2019-10-21] MEDS: FERROUS SULFATE 325 MG TAB PO SCH ×2 (10:30→22:32)
[2019-10-21] MEDS: amLODIPine 10 MG TAB FEEDTUBE SCH (10:35)
[2019-10-21] MEDS: LISINOPRIL 40 MG TAB FEEDTUBE SCH (10:35)
[2019-10-21] MEDS: FOLIC ACID 1 MG TAB PO SCH (10:35)
[2019-10-21] MEDS: AMANTADINE FEEDTUBE SCH ×2 (10:35→13:50)
[2019-10-21] MEDS: POLYETHYLENE GLYCOL 3350 17 GM POWDER FEEDTUBE SCH (10:48)
[2019-10-21] MEDS: LIDOCAINE 5% 1 EACH PATCH TD SCH (11:02)
--- NOTE | 2019-10-21 11:42 | Progress Note ---
Subjective Date of service: 10/21/19 Principal diagnosis: CVA Interval history: 64-year-old male who presented to [facility] [facility] on August 11 with acute onset of left-sided weakness. 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 Alteplase was given on 08/11. He developed delayed cerebral edema and hemorrhagic conversion. CT head showed large right-sided MCA territory infarct with scattered hyperdensities and cerebral edema with midline shift on August 13. August 15 there is an increase to 7 mm from the previous [address] with new petechial hemorrhages. Neurosurgery was consulted and ultimately required a decompressive hemicraniectomy on August 22. He continued to have increased bleeding prompting aspirin to be held on August 25. Patient was transferred from the ICU to neurology general floor on August 27. MRI brain on August 30 showed evolving large right MCA infarct with hemorrhagic transformation. Stable appearing midline shift. Hematoma superficial to craniotomy in the right temporalis muscle. On 08/30 he underwent Ultrasound Doppler venous left upper extremity showed a nonocclusive deep vein thrombosis in the left axillary vein and a thrombus within the superficial basilic vein. Ultrasound Doppler venous left lower extremity showed chronic DVT of the left common femoral vein on 09/04 for which an IVC filter was placed on September 06. PEG was placed on September 10 due to poor oral intake and dysphasia. EKG and telemetry monitoring showed paroxysmal atrial fibrillation. TTE showed an ejection fraction of 50 to 55% with severely dilated left atrium and impaired left ventricle relaxation. Patient was tolerating a bolus tube feed diet of Nutren 1.5 max of 5 cans/day with free water flushes 100 mils before and after each feed if the patient ate less than 25% bolus 2 cans, 50% bolus 1 can, greater than 50% no bolus. Stroke labs at outside hospital A1c 7.1, TSH 1.375, total cholesterol 198, LDL 132, RPR nonreactive, INR 1.1. Patient was transition to Eliquis as a secondary stroke prevention and anticoagulation for atrial fibrillation. He was taken off of aspirin due to risk of bleeding prior to leaving the hospital and going to the [facility] facility. The physicians at the hospital also made recommendation for considering a watchman device as an outpatient. 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 After the patient was stabilized he was transferred to subacute rehabilitation. Family visited our inpatient rehabilitation and was unhappy with his lack of progress at subacute and noted that he has been participating more with therapy but do not feel like he is getting the amount of therapy that he could truly benefit from. After discussion with the family as well as the facility and review of the past we opted to accept the patient to give him an opportunity to participate in a more intensive therapy schedule. Several discussions had with family on final disposition and ensuring that he would be going home regardless of how much recovery we were able to make. Patient was transferred to us from a subacute rehab where he has been since September 20. After the patient was medically stabilized they were transferred for further rehabilitation. All available medical records have been reviewed. Plan of care, prognosis, expectations, secondary stroke prevention, discharge planning was discussed with patient and family (2 daughters). Day prior to admission 48 minutes were spent reviewing all available records from the outside hospital as well as the [facility]dc facility in preparation for transfer of the patient to acute inpatient rehabilitation. Interval history: Patient is participating in therapy and making slow progress. Taking rest breaks as needed. +BM. Afebrile. Denies palpitations, dyspnea, cough, N/V. Discussed with patient again that we need to get his family and for family training. Will discuss with clinical rehab specialist as well as therapy. All records, vitals, labs and medications were reviewed. No other issues per patient, nursing or therapy. CVA: Patient making progress with therapy. Continue to monitor for worsening neurologic function. Continue secondary stroke prevention. No change in hemiplegia, no spasticity, no change in dysphagia. Left shoulder sublux: Pain somewhat better since starting Lidoderm, monitor. Discussed again that he needs to keep it supported Hemicraniectomy: Sunken, helmet on when out of bed, well-healed continue to monitor Constipation: Contain standard bowel meds and monitor for improvement. Bowel movements last night Paroxysmal atrial fibrillation: Denies palpitations, rate controlled, tolerating anticoagulation. Continue to monitor Hypertension: Blood pressures been in a good range. Continue to monitor Diabetes: Glucose checks have been reasonable. Continue to monitor and adjust insulin as needed based on oral intake. Anemia: Hemoglobin level has normalized, however he is still microcytic. Nutrition: Oral intake has improved somewhat. May need to look to utilize PEG tube for nutritional supplementation. We will continue to monitor and continue appetite stimulant. Cognition: Continue amantadine and monitor for improvement. Patient seems alert and more interactive today than he has previously. All records, vitals, labs and medications were reviewed. No other issues per patient, nursing or therapy. Objective - Exam Narrative Exam: MUSCULOSKELETAL SPECIALTY EXAM CONSTITUTIONAL: Well developed, well nourished, appropriately groomed. LEFT hand dominant. Head: Right craniectomy site sunken with mild dependent swelling at the base, soft RESPIRATORY: Clear to auscultation bilaterally, no increased work of breathing CARDIOVASCULAR: Regular Rate/ Rhythm, no swelling, edema or tenderness in BUE or BLE. All extremities warm. GI: + bowel sounds, soft, NTTP, nondistended. PEG tube present INTEGUMENTARY: Normal, no lesion, rash, masses or bruising noted in extremities. MUSCULOSKELETAL: Left shoulder subluxation, otherwise BUE and BLE normal without defect, crepitus, subluxation, effusion, arthritic changes or TTP. R 4+/5 L 0/5 ROM decreased on left, normal on right Tone flaccid on left, normal on right NEURO: CN II : Right visual colmenares full to confrontation, left blind CN III, IV, : EOMI on the right but right eye does preferentially veer t owards the lateral aspect CN V : Facial sensation intact decreased on left CN VII : Slight left facial droop CN XI : Left shoulder shrug absent Sensation impaired on left with extinction, normal on right No tremor noted in 4 extremities. Naming and repetition intact. Follows 2 step commands. Aphasia not appreciated Dysarthria not appreciated Dysphagia present Neglect to left side with activity, right gaze preference. Does recognize the left and address it, just can not attend to it. POSTURE and GAIT: Sitting posture okay but is decreased with ability to maintain. Gait deferred. Sitting balance poor, starting to push towards the left PSYCH: Alert, oriented x3, affect appears flattened. Insight appears mostly intact. - Constitutional Vitals: Vital Signs - 12hr 03/16/20 08:05 Temperature 98.1 F Pulse Rate 59 L Respiratory 18 Rate Blood Pressure 145/76 O2 Sat by Pulse 97 Oximetry - Allied health notes Allied health notes reviewed: nursing, PT, ST, OT FIMS assessment as documented by PT/OT/ST: Social interaction/Memory/Problem solving Social Interaction FIM Score 3. Moderate Assistance (Interacts appropriately 50-74%.) Memory FIM Score 3. Moderate Assistance (Recognizes and remembers 50-74%.) Problem Solving FIM Score 3. Moderate Assistance (Solves routine problems 50-74%.) Transfers Mode of Locomotion: Wheelchair Bed/Chair/Wheelchair Transfers 2. Maximal Assistance (Patient = 25% or more) FIM Score Dressing-Upper body Upper Body Dressing Device Physical Design Engineer Patient retrieves clothing No items: Patient applies/removes UE No prosthesis or orthosis: Upper Body Dressing FIM Score 2. Maximal Assistance (Patient = 25% or more) Dressing-lower body Patient retrieves clothing No items: Patient applies/removes LE No prosthesis or orthosis: Lower Body Dressing FIM Score 2. Maximal Assistance (Patient = 25% or more) - Labs CBC & Chem 7: 10/19/19 07:10 10/19/19 07:10 Labs: Laboratory Results - last 72 hr 10/18/19 10/18/19 10/18/19 11:51 13:48 13:48 WBC 6.6 RBC 5.36 H Hgb 13.2 Hct 41.4 MCV 77 L MCH 25 L MCHC 32 RDW 16.5 H Plt Count 183 Sodium 141 Potassium 4.6 Chloride 102.6 Carbon Dioxide 23 Anion Gap 20 BUN 14 Creatinine 1.3 Estimated GFR > 60 BUN/Creatinine Ratio 11 Glucose 167 H POC Glucose 183 H Calcium 10.1 10/18/19 10/18/19 10/19/19 16:21 21:48 07:10 WBC 6.4 RBC 5.11 H Hgb 12.5 Hct 39.2 MCV 77 L MCH 25 L MCHC 32 RDW 15.9 H Plt Count 175 Sodium Potassium Chloride Carbon Dioxide Anion Gap BUN Creatinine Estimated GFR BUN/Creatinine Ratio Glucose POC Glucose 156 H 130 H Calcium 10/19/19 10/19/19 10/19/19 07:10 07:52 11:15 WBC RBC Hgb Hct MCV MCH MCHC RDW Plt Count Sodium 135 L Potassium 3.7 Chloride 95.9 L Carbon Dioxide 25 Anion Gap 18 BUN 12 Creatinine 1.1 Estimated GFR > 60 BUN/Creatinine Ratio 11 Glucose 127 H POC Glucose 134 H 154 H Calcium 9.6 10/19/19 10/19/19 10/20/19 16:12 21:14 07:27 WBC RBC Hgb Hct MCV MCH MCHC RDW Plt Count Sodium Potassium Chloride Carbon Dioxide Anion Gap BUN Creatinine Estimated GFR BUN/Creatinine Ratio Glucose POC Glucose 124 H 205 H 157 H Calcium 10/20/19 10/20/19 10/20/19 11:36 16:15 21:16 WBC RBC Hgb Hct MCV MCH MCHC RDW Plt Count Sodium Potassium Chloride Carbon Dioxide Anion Gap BUN Creatinine Estimated GFR BUN/Creatinine Ratio Glucose POC Glucose 147 H 120 H 164 H Calcium 10/21/19 10/21/19 08:18 11:21 WBC RBC Hgb Hct MCV MCH MCHC RDW Plt Count Sodium Potassium Chloride Carbon Dioxide Anion Gap BUN Creatinine Estimated GFR BUN/Creatinine Ratio Glucose POC Glucose 86 165 H Calcium Assessment and Plan CVA, MCA, embolic with hemorrhagic conversion left dominant hemiplegia: Flaccid left side. Continue secondary stroke prevention (antithrombotic, statin (goal LDLC <70), BP control (goal less than 140/90), GLU control (goal A1c <7), and lifestyle modification). Monitor for recurrent stroke or post-stroke recrudescence. Continue neuromotor therapy as above. Family training when available. Monitor for post-stroke depression, cognitive deficits, seizure, dysphagia, aphasia, shoulder-hand syndrome, sensory deficits, spasticity, bowel/bladder deficits, sleep disturbance, vision deficits, pressure sores and DVT. Prognosis for recovery and secondary stroke prevention discussed with patient and family. Follow-up with neurology. No driving until cleared by neurologist. Paroxysmal atrial fibrillation: Continue rate control and anticoagulation. Adjust medications as needed. Monitor for palpitations, dyspnea, lightheadedness, chest pain, fatigue. EKG as needed. Diastolic dysfunction: Monitor for any exacerbation of diastolic dysfunction. Hypertension: Continue medications. Monitor blood pressure every 4 hours while awake. Adjust medications as needed for normotension and hold for hypotension. Diabetes type 2: Continue current diet. Monitor blood glucose before meals and at bedtime. Sliding scale insulin. Adjust medications as needed for normoglycemia. Skin checks per nursing to identify any new wounds. Left upper extremity and left lower extremity DVT: Continue Eliquis. Monitor for any signs of worsening condition. Patient does have a IVC filter installed as well. Dysphagia: Eating all meals and not taking any PEG tubes currently only thing through the PEG is medication. Continue current diet. RECREATION COORDINATOR to monitor and advance diet as able, and perform FEES, MBSS or e-stim as needed. Shoulder subluxation: Continue strengthening exercises for improvement of shoulder subluxation. Arm tray while in wheelchair. Prop the arm on pillows including hand for elevation while in bed. Consider kinesiotaping and/or e- stim. Lidoderm Anemia: Microcytic. Replace iron, folate, vitamin C. monitor. Hemoglobin has recovered however still very microcytic Cognition: Continue amantadine at breakfast as well as lunch. Patient was previously getting this every 12 hours we should see a little bit better tolerance for it scheduled appropriately. Monitor for improvement. Supportive care and therapy. Family involvement as available. Continue reminders throughout therapy and the day to ensure patient safety. Altered sensation on the left: Monitor for skin wounds. Improve patient's ability to self monitor placement of limbs to avoid injury. Medication as needed for painful paresthesias. Poor nutritional intake: Check nutrition labs including pre-albumin (0.211 slightly better than normal). Monitor oral intake and weights. Patient is on appetite stimulant, continue Remeron. Right craniectomy: Currently sunken with very slight CSF collection at the base of the craniectomy. Monitor for any changes in volume and notified neurosurgeon if this occurs. Helmet on anytime out of bed. When out of bed with helmet on need to monitor periodically for swelling. ADL dysfunction: OT will work on improving ability to perform ADLs (including assistive devices) to increase independence and decrease caregiver burden and improve functional transfers and mobility training. Difficulty walking: PT will work on gait training and proper use of assistive devices and advance as appropriate to use of stairs and outside ambulation on uneven surfaces. Unsteadiness on feet: PT will work on improving static and dynamic sitting and standing balance as well as proper use of assistive devices to decrease risk of falls. Abnormality of gait: PT will work to improve safety and efficiency of gait through neuromotor training and gait training along with instruction on proper use of assistive devices. Muscle weakness: PT & OT will work on strengthening exercises to improve functional strength including mixture of closed and open kinetic chain exercises. Debility: PT & OT will work on improving overall functional status to improve participation with ADLs, mobility and social involvement. Fatigue: PT & OT will work on improving endurance through aerobic exercises and therapeutic activity while monitoring patients tolerance for activity and vital signs as needed. DVT ppx: Eliquis for atrial fibrillation Pain: Continue physical modalities in therapy and pain medications as needed to achieve functional pain control. Sleep: Monitor and address as needed. Melatonin Bowel: Monitor and address as needed. Increased medications, scheduled. Sorbitol PO & MD x1 dose. Continue to monitor Appetite: Monitor and address as needed. Mirtazapine Discharge planning: Pending therapy progress and care plan meeting. Will continue discussion with therapy team, SW, patient and family. Restrictions/ Precautions: Falls, craniectomy (helmet on when out of bed), low bed, decreased sensation on left WB status: FWB Functional Hx: ADLs: Independent Cognition: Independent Mobility: No AD Barriers to Discharge: Decreased mobility and ability to perform self care, balance deficits, weakness, craniectomy, left dominant hemiplegia, dysphagia Estimated Length of Stay: 1421 days Discharge Destination: Home with family
[2019-10-21] MEDS: traMADol 50 MG TAB FEEDTUBE PRN (13:51)
[2019-10-21] MEDS: SENNOSIDES 8.6 MG TAB PO SCH (22:32)
[2019-10-21] MEDS: MIRTAZAPINE 15 MG TAB FEEDTUBE SCH (22:33)
[2019-10-21] MEDS: MELATONIN 5 MG TAB PO SCH (22:33)
[2019-10-21] MEDS: INSULIN GLARGINE 100 UNITS/ML SUB-Q SCH (22:34)
[2019-10-22] MEDS: INSULIN LISPRO 100 UNIT/ML SUB-Q SCH ×4 (08:06→23:57)
[2019-10-22] MEDS: hydrALAZINE 100 MG TAB FEEDTUBE SCH ×3 (09:00→22:02)
[2019-10-22 09:52] LABS: Hematocrit 37.7 % (35.5-45.6); Hemoglobin 12.2 gm/dl (11.8-15.2); Mean Corpuscular HGB Conc 32 % (32-34); Mean Corpuscular Volume 77 fl (84-94); Platelet Count 152 K/mm3 (140-440); Red Blood Count 4.93 M/mm3 (3.65-5.03); Red Cell Distribution Width 16.3 % (13.2-15.2)
[2019-10-22 10:14] LABS: BUN/Creatinine Ratio 14; Blood Urea Nitrogen 13 mg/dL (9-20); Calcium 9.3 mg/dL (8.4-10.2); Hemolysis Index 7
[2019-10-22] MEDS: FAMOTIDINE 20 MG TAB FEEDTUBE SCH ×2 (10:49→22:02)
[2019-10-22] MEDS: AMANTADINE FEEDTUBE SCH ×2 (10:49→13:34)
[2019-10-22] MEDS: amLODIPine 10 MG TAB FEEDTUBE SCH (10:50)
[2019-10-22] MEDS: FERROUS SULFATE 325 MG TAB PO SCH ×2 (10:50→22:01)
[2019-10-22] MEDS: APIXABAN 5 MG TAB FEEDTUBE SCH ×2 (10:51→22:01)
[2019-10-22] MEDS: ASCORBIC ACID 500 MG TAB PO SCH ×2 (10:51→22:01)
[2019-10-22] MEDS: FOLIC ACID 1 MG TAB PO SCH (10:51)
[2019-10-22] MEDS: LISINOPRIL 40 MG TAB FEEDTUBE SCH (10:52)
[2019-10-22] MEDS: carvediloL 6.25 MG TAB FEEDTUBE SCH ×2 (10:52→22:02)
[2019-10-22] MEDS: LIDOCAINE 5% 1 EACH PATCH TD SCH (11:01)
[2019-10-22] MEDS: POLYETHYLENE GLYCOL 3350 17 GM POWDER FEEDTUBE SCH (11:04)
--- NOTE | 2019-10-22 12:04 | Progress Note ---
Subjective Date of service: 10/22/19 Principal diagnosis: CVA Interval history: 64-year-old male who presented to [facility] on August 11 with acute onset of left-sided weakness. 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 Alteplase was given on 08/11. He developed delayed cerebral edema and hemorrhagic conversion. CT head showed large right-sided MCA territory infarct with scattered hyperdensities and cerebral edema with midline shift on August 13. August 15 there is an increase to 7 mm from the previous [address] with new petechial hemorrhages. Neurosurgery was consulted and ultimately required a decompressive hemicraniectomy on August 22. He continued to have increased bleeding prompting aspirin to be held on August 25. Patient was transferred from the ICU to neurology general floor on August 27. MRI brain on August 30 showed evolving large right MCA infarct with hemorrhagic transformation. Stable appearing midline shift. Hematoma superficial to craniotomy in the right temporalis muscle. On 08/30 he underwent Ultrasound Doppler venous left upper extremity showed a nonocclusive deep vein thrombosis in the left axillary vein and a thrombus within the superficial basilic vein. Ultrasound Doppler venous left lower extremity showed chronic DVT of the left common femoral vein on 09/04 for which an IVC filter was placed on September 06. PEG was placed on September 10 due to poor oral intake and dysphasia. EKG and telemetry monitoring showed paroxysmal atrial fibrillation. TTE showed an ejection fraction of 50 to 55% with severely dilated left atrium and impaired left ventricle relaxation. Patient was tolerating a bolus tube feed diet of Nutren 1.5 max of 5 cans/day with free water flushes 100 mils before and after each feed if the patient ate less than 25% bolus 2 cans, 50% bolus 1 can, greater than 50% no bolus. Stroke labs at outside hospital A1c 7.1, TSH 1.375, total cholesterol 198, LDL 132, RPR nonreactive, INR 1.1. Patient was transition to Eliquis as a secondary stroke prevention and anticoagulation for atrial fibrillation. He was taken off of aspirin due to risk of bleeding prior to leaving the hospital and going to the assisted facility. The physicians at the hospital also made recommendation for considering a watchman device as an outpatient. 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 After the patient was stabilized he was transferred to subacute rehabilitation. Family visited our inpatient rehabilitation and was unhappy with his lack of progress at subacute and noted that he has been participating more with therapy but do not feel like he is getting the amount of therapy that he could truly benefit from. After discussion with the family as well as the facility and review of the past we opted to accept the patient to give him an opportunity to participate in a more intensive therapy schedule. Several discussions had with family on final disposition and ensuring that he would be going home regardless of how much recovery we were able to make. Patient was transferred to us from a subacute rehab where he has been since September 20. After the patient was medically stabilized they were transferred for further rehabilitation. All available medical records have been reviewed. Plan of care, prognosis, expectations, secondary stroke prevention, discharge planning was discussed with patient and family (2 daughters). Day prior to admission 48 minutes were spent reviewing all available records from the outside hospital as well as the assisted facility in preparation for transfer of the patient to acute inpatient rehabilitation. Interval history: Patient is participating in therapy and making slow progress. Taking rest breaks as needed. +BM. Afebrile. Denies palpitations, dyspnea, cough, N/V. Family should be coming in in the next day or so for family training. Will need them here as much as possible in order to ensure that they understand how to provide proper care for Mr. Condon at home. All records, vitals, labs and medications were reviewed. No other issues per patient, nursing or therapy. CVA: Patient making slow progress with therapy. Continue to monitor for worsening neurologic function. Continue secondary stroke prevention. No change in hemiplegia, no spasticity, no change in dysphagia. Left shoulder sublux: Pain somewhat better since starting Lidoderm, monitor. Discussed again that he needs to keep it supported Hemicraniectomy: Sunken, helmet on when out of bed, well-healed continue to monitor Constipation: Continue bowel meds and monitor for improvement. Paroxysmal atrial fibrillation: Denies palpitations, rate controlled, tolerating anticoagulation. Continue to monitor Hypertension: Blood pressures been in a good range. Continue to monitor Diabetes: Glucose checks have been reasonable. Continue to monitor and adjust insulin as needed based on oral intake. Anemia: Hemoglobin level has normalized, however he is still microcytic. Nutrition: Oral intake is variable. This morning patient refused to eat breakfast. Utilizing PEG tube for nutritional supplementation if less than 50% of meal eaten. We will continue to monitor and continue appetite stimulant. Cognition: Continue amantadine and monitor for improvement. Patient seems alert and interactive today. All records, vitals, labs and medications were reviewed. No other issues per patient, nursing or therapy. Objective - Exam Narrative Exam: MUSCULOSKELETAL SPECIALTY EXAM CONSTITUTIONAL: Well developed, well nourished, appropriately groomed. LEFT hand dominant. Head: Right craniectomy site sunken with mild dependent swelling at the base, soft RESPIRATORY: Clear to auscultation bilaterally, no increased work of breathing CARDIOVASCULAR: Regular Rate/ Rhythm, no swelling, edema or tenderness in BUE or BLE. All extremities warm. GI: + bowel sounds, soft, NTTP, nondistended. PEG tube present INTEGUMENTARY: Normal, no lesion, rash, masses or bruising noted in extremities. MUSCULOSKELETAL: Left shoulder subluxation, otherwise BUE and BLE normal without defect, crepitus, subluxation, effusion, arthritic changes or TTP. R 4+/5 L 0/5 ROM decreased on left, normal on right Tone flaccid on left, normal on right NEURO: CN II : Right visual colmenares full to confrontation, left blind CN III, IV, : EOMI on the right but right eye does preferentially veer towards the lateral aspect CN V : Facial sensation intact decreased on left CN VII : Slight left facial droop CN XI : Left shoulder shrug absent Sensation impaired on left with extinction, normal on right No tremor noted in 4 extremities. Naming and repetition intact. Follows 2 step commands. Aphasia not appreciated Dysarthria not appreciated Dysphagia present Neglect to left side with activity, right gaze preference. Does recognize the left and address it, just can not attend to it. POSTURE and GAIT: Sitting posture okay but is decreased with ability to maintain. Gait deferred. Sitting balance poor, starting to push towards the left PSYCH: Alert, oriented x3, affect appears flattened. Insight appears mostly intact. - Constitutional Vitals: Vital Signs - 12hr 10/22/19 10/22/19 10/22/19 00:01 00:14 04:44 Temperature 98.0 F 97.8 F Pulse Rate 68 65 Respiratory 18 17 17 Rate Blood Pressure Blood Pressure 143/68 145/76 [Left] O2 Sat by Pulse 95 96 Oximetry 10/22/19 07:31 Temperature 98.6 F Pulse Rate 60 Respiratory 18 Rate Blood Pressure 131/65 Blood Pressure [Left] O2 Sat by Pulse 95 Oximetry - Allied health notes Allied health notes reviewed: nursing, PT, ST, OT FIMS assessment as documented by PT/OT/ST: Social interaction/Memory/Problem solving Social Interaction FIM Score 6. Mod. Clover (Mostly appropriate. May need meds. No supv.) Memory FIM Score 4. Minimal Assistance (Recognizes and remembers 75-90%.) Problem Solving FIM Score 4. Minimal Assistance (Solves routine problems 75-90%.) Transfers Mode of Locomotion: Wheelchair Bed/Chair/Wheelchair Transfers 2. Maximal Assistance (Patient = 25% or more) FIM Score Dressing-Upper body Upper Body Dressing Device Planning Associate Patient retrieves clothing No items: Patient applies/removes UE No prosthesis or orthosis: Upper Body Dressing FIM Score 2. Maximal Assistance (Patient = 25% or more) Dressing-lower body Patient retrieves clothing No items: Patient applies/removes LE No prosthesis or orthosis: Lower Body Dressing FIM Score 2. Maximal Assistance (Patient = 25% or more) - Labs CBC & Chem 7: 10/22/19 08:27 10/22/19 08:27 Labs: Laboratory Results - last 72 hr 10/19/19 10/19/19 10/20/19 16:12 21:14 07:27 WBC RBC Hgb Hct MCV MCH MCHC RDW Plt Count Sodium Potassium Chloride Carbon Dioxide Anion Gap BUN Creatinine Estimated GFR BUN/Creatinine Ratio Glucose POC Glucose 124 H 205 H 157 H Calcium 10/20/19 10/20/19 10/20/19 11:36 16:15 21:16 WBC RBC Hgb Hct MCV MCH MCHC RDW Plt Count Sodium Potassium Chloride Carbon Dioxide Anion Gap BUN Creatinine Estimated GFR BUN/Creatinine Ratio Glucose POC Glucose 147 H 120 H 164 H Calcium 10/21/19 10/21/19 10/21/19 08:18 11:21 16:51 WBC RBC Hgb Hct MCV MCH MCHC RDW Plt Count Sodium Potassium Chloride Carbon Dioxide Anion Gap BUN Creatinine Estimated GFR BUN/Creatinine Ratio Glucose POC Glucose 86 165 H 243 H Calcium 10/21/19 10/22/19 10/22/19 21:10 07:43 08:27 WBC 5.7 RBC 4.93 Hgb 12.2 Hct 37.7 MCV 77 L MCH 25 L MCHC 32 RDW 16.3 H Plt Count 152 Sodium Potassium Chloride Carbon Dioxide Anion Gap BUN Creatinine Estimated GFR BUN/Creatinine Ratio Glucose POC Glucose 221 H 117 H Calcium 10/22/19 10/22/19 08:27 11:44 WBC RBC Hgb Hct MCV MCH MCHC RDW Plt Count Sodium 138 Potassium 3.8 Chloride 100.3 Carbon Dioxide 22 Anion Gap 20 BUN 13 Creatinine 0.9 Estimated GFR > 60 BUN/Creatinine Ratio 14 Glucose 113 H POC Glucose 154 H Calcium 9.3 Assessment and Plan CVA, MCA, embolic with hemorrhagic conversion left dominant hemiplegia: Flaccid left side. Continue secondary stroke prevention (antithrombotic, statin (goal LDLC <70), BP control (goal less than 140/90), GLU control (goal A1c <7), and lifestyle modification). Monitor for recurrent stroke or post-stroke recrudescence. Continue neuromotor therapy as above. Family training when available. Monitor for post-stroke depression, cognitive deficits, seizure, dysphagia, aphasia, shoulder-hand syndrome, sensory deficits, spasticity, bowel/bladder deficits, sleep disturbance, vision deficits, pressure sores and DVT. Prognosis for recovery and secondary stroke prevention discussed with patient and family. Follow-up with neurology. No driving until cleared by neurologist. Paroxysmal atrial fibrillation: Continue rate control and anticoagulation. Adjust medications as needed. Monitor for palpitations, dyspnea, lightheadedness, chest pain, fatigue. EKG as needed. Diastolic dysfunction: Monitor for any exacerbation of diastolic dysfunction. Hypertension: Continue medications. Monitor blood pressure every 4 hours while awake. Adjust medications as needed for normotension and hold for hypotension. Diabetes type 2: Continue current diet. Monitor blood glucose before meals and at bedtime. Sliding scale insulin. Adjust medications as needed for normoglycemia. Skin checks per nursing to identify any new wounds. Left upper extremity and left lower extremity DVT: Continue Eliquis. Monitor for any signs of worsening condition. Patient does have a IVC filter installed as well. Dysphagia: Eating all meals and not taking any PEG tube diet currently - only thing through the PEG is medication. Continue current diet. PERPETUAL INVENTORY CLERK to monitor and advance diet as able, and perform FEES, MBSS or e-stim as needed. Shoulder subluxation: Continue strengthening exercises for improvement of shoulder subluxation. Arm tray while in wheelchair. Prop the arm on pillows including hand for elevation while in bed. Consider kinesiotaping and/or e- stim. Lidoderm Anemia: Microcytic. Replace iron, folate, vitamin C. monitor. Hemoglobin has recovered however still very microcytic Cognition: Continue amantadine at breakfast as well as lunch. Patient was previously getting this every 12 hours we should see a little bit better tolerance for it scheduled appropriately. Monitor for improvement. Supportive care and therapy. Family involvement as available. Continue reminders throughout therapy and the day to ensure patient safety. Altered sensation on the left: Monitor for skin wounds. Improve patient's ability to self monitor placement of limbs to avoid injury. Medication as needed for painful paresthesias. Poor nutritional intake: Check nutrition labs including pre-albumin (0.211 slightly better than normal). Monitor oral intake and weights. Patient is on appetite stimulant, continue Remeron. Right craniectomy: Currently sunken with very slight CSF collection at the base of the craniectomy. Monitor for any changes in volume and notified neurosurgeon if this occurs. Helmet on anytime out of bed. When out of bed with helmet on need to monitor periodically for swelling. ADL dysfunction: OT will work on improving ability to perform ADLs (including assistive devices) to increase independence and decrease caregiver burden and improve functional transfers and mobility training. Difficulty walking: PT will work on gait training and proper use of assistive devices and advance as appropriate to use of stairs and outside ambulation on uneven surfaces. Unsteadiness on feet: PT will work on improving static and dynamic sitting and standing balance as well as proper use of assistive devices to decrease risk of falls. Abnormality of gait: PT will work to improve safety and efficiency of gait through neuromotor training and gait training along with instruction on proper use of assistive devices. Muscle weakness: PT & OT will work on strengthening exercises to improve functional strength including mixture of closed and open kinetic chain ex ercises. Debility: PT & OT will work on improving overall functional status to improve participation with ADLs, mobility and social involvement. Fatigue: PT & OT will work on improving endurance through aerobic exercises and therapeutic activity while monitoring patients tolerance for activity and vital signs as needed. DVT ppx: Eliquis for atrial fibrillation Pain: Continue physical modalities in therapy and pain medications as needed to achieve functional pain control. Sleep: Monitor and address as needed. Melatonin Bowel: Monitor and address as needed. Increased medications, scheduled. Sorbitol PO & [place] x1 dose. Continue to monitor Appetite: Monitor and address as needed. Mirtazapine Discharge planning: Pending therapy progress and care plan meeting. Will continue discussion with therapy team, SW, patient and family. Restrictions/ Precautions: Falls, craniectomy (helmet on when out of bed), low bed, decreased sensation on left WB status: FWB Functional Hx: ADLs: Independent Cognition: Independent Mobility: No AD Working on having the family come in for family training. Family is adamant that they are not sending him back to a halfway which is where he came to us from. Unfortunately, it appears that his likelihood for meaningful recovery is going to be reduced being that we are working on close to 3 months since the initial CVA. Working with the family we hope to reduce the level of caregiver burden and to educate them on how to safely provide care for Mr. Condon as he transitions back home. They will need all medical equipment including Ana lif t, wheelchair, and a hospital bed. Will discuss with the family when they arrive so that we can make the appropriate orders and not duplicate any materials that they currently have at home. Barriers to Discharge: Decreased mobility and ability to perform self care, balance deficits, weakness, craniectomy, left dominant hemiplegia, dysphagia Estimated Length of Stay: 1421 days Discharge Destination: Home with family
[2019-10-22] MEDS: SENNOSIDES 8.6 MG TAB PO SCH (22:02)
[2019-10-22] MEDS: MELATONIN 5 MG TAB PO SCH (22:10)
[2019-10-22] MEDS: INSULIN GLARGINE 100 UNITS/ML SUB-Q SCH (23:56)
[2019-10-22] MEDS: MIRTAZAPINE 15 MG TAB FEEDTUBE SCH (23:57)
[2019-10-23] MEDS: FOLIC ACID 1 MG TAB PO SCH (08:40)
[2019-10-23] MEDS: FAMOTIDINE 20 MG TAB FEEDTUBE SCH ×2 (08:40→21:33)
[2019-10-23] MEDS: AMANTADINE FEEDTUBE SCH ×3 (08:40→14:30)
[2019-10-23] MEDS: APIXABAN 5 MG TAB FEEDTUBE SCH ×2 (08:40→21:34)
[2019-10-23] MEDS: INSULIN LISPRO 100 UNIT/ML SUB-Q SCH ×4 (08:40→21:36)
[2019-10-23] MEDS: ASCORBIC ACID 500 MG TAB PO SCH ×2 (08:40→21:34)
[2019-10-23] MEDS: FERROUS SULFATE 325 MG TAB PO SCH ×2 (08:40→21:33)
[2019-10-23] MEDS: carvediloL 6.25 MG TAB FEEDTUBE SCH ×2 (08:45→21:34)
[2019-10-23] MEDS: hydrALAZINE 100 MG TAB FEEDTUBE SCH ×3 (08:45→21:34)
[2019-10-23] MEDS ORDERED: SIMPLE SYRUP 15 ML FEEDTUBE PRN ×2 (11:00)
[2019-10-23] MEDS ORDERED: SODIUM BICARBONATE 325 MG TAB FEEDTUBE PRN (11:00)
[2019-10-23] MEDS ORDERED: LIPASE 10,500/PROTEASE 25,000/AMYLASE 43,750 (UNITS) DR CAP FEEDTUBE PRN (11:00)
[2019-10-23] MEDS: LIDOCAINE 5% 1 EACH PATCH TD SCH (11:22)
--- NOTE | 2019-10-23 11:38 | Progress Note ---
Subjective Date of service: 10/23/19 Principal diagnosis: CVA Interval history: 64-year-old male who presented to [facility] on August 11 with acute onset of left-sided weakness. 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 Alteplase was given on 08/11. He developed delayed cerebral edema and hemorrhagic conversion. CT head showed large right-sided MCA territory infarct with scattered hyperdensities and cerebral edema with midline shift on August 13. August 15 there is an increase to 7 mm from the previous [address] with new petechial hemorrhages. Neurosurgery was consulted and ultimately required a decompressive hemicraniectomy on August 22. He continued to have increased bleeding prompting aspirin to be held on August 25. Patient was transferred from the ICU to neurology general floor on August 27. MRI brain on August 30 showed evolving large right MCA infarct with hemorrhagic transformation. Stable appearing midline shift. Hematoma superficial to craniotomy in the right temporalis muscle. On 08/30 he underwent Ultrasound Doppler venous left upper extremity showed a nonocclusive deep vein thrombosis in the left axillary vein and a thrombus within the superficial basilic vein. Ultrasound Doppler venous left lower extremity showed chronic DVT of the left common femoral vein on 09/04 for which an IVC filter was placed on September 06. PEG was placed on September 10 due to poor oral intake and dysphasia. EKG and telemetry monitoring showed paroxysmal atrial fibrillation. TTE showed an ejection fraction of 50 to 55% with severely dilated left atrium and impaired left ventricle relaxation. Patient was tolerating a bolus tube feed diet of Nutren 1.5 max of 5 cans/day with free water flushes 100 mils before and after each feed if the patient ate less than 25% bolus 2 cans, 50% bolus 1 can, greater than 50% no bolus. Stroke labs at outside hospital A1c 7.1, TSH 1.375, total cholesterol 198, LDL 132, RPR nonreactive, INR 1.1. Patient was transition to Eliquis as a secondary stroke prevention and anticoagulation for atrial fibrillation. He was taken off of aspirin due to risk of bleeding prior to leaving the hospital and going to the [facility] facility. The physicians at the hospital also made recommendation for considering a watchman device as an outpatient. 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 After the patient was stabilized he was transferred to subacute rehabilitation. Family visited our inpatient rehabilitation and was unhappy with his lack of progress at subacute and noted that he has been participating more with therapy but do not feel like he is getting the amount of therapy that he could truly benefit from. After discussion with the family as well as the facility and review of the past we opted to accept the patient to give him an opportunity to participate in a more intensive therapy schedule. Several discussions had with family on final disposition and ensuring that he would be going home regardless of how much recovery we were able to make. Patient was transferred to us from a subacute rehab where he has been since September 20. After the patient was medically stabilized they were transferred for further rehabilitation. All available medical records have been reviewed. Plan of care, prognosis, expectations, secondary stroke prevention, discharge planning was discussed with patient and family (2 daughters). Day prior to admission 48 minutes were spent reviewing all available records from the outside hospital as well as the fdc facility in preparation for transfer of the patient to acute inpatient rehabilitation. Interval history: Patient is participating in therapy and making slow progress. Taking rest breaks as needed. -BM. Afebrile. Denies palpitations, dyspnea, cough, N/V. Family should be coming for family training, this will be complicated due to the restrictions on visitors currently. Will have to work around this in order to ensure a safe discharge home. Patient was seen working with therapy today and has made good improvement in the last 2 days, will discuss tomorrow at team conference but may be able to keep him a little bit longer if he continues improving like this. He was performing transfers just with set up from wheelchair to bedside. Will need them here as much as possible in order to ensure that they understand how to provide proper care for Mr. Condon at home. All records, vitals, labs and medications were reviewed. No other issues per patient, nursing or therapy. CVA: Patient making progress with therapy. Continue to monitor for worsening neurologic function. Continue secondary stroke prevention. No change in hemiplegia, no spasticity, no change in dysphagia. Left shoulder sublux: Pain somewhat better since starting Lidoderm, monitor. Discussed again that he needs to keep it supported Hemicraniectomy: Sunken, helmet on when out of bed, well-healed continue to monitor Constipation: Continue bowel meds and monitor for improvement. Paroxysmal atrial fibrillation: Denies palpitations, rate controlled, tolerating anticoagulation. Continue to monitor Hypertension: Blood pressures been in a good range. Continue to monitor Diabetes: Glucose checks have been reasonable. Continue to monitor and adjust insulin as needed based on oral intake. Anemia: Hemoglobin level has normalized, however he is still microcytic. Nutrition: Oral intake is variable. Utilizing PEG tube for nutritional supplementation if less than 50% of meal eaten. We will continue to monitor and continue appetite stimulant. Cognition: Continue amantadine and monitor for improvement. Patient seems alert and interactive today. All records, vitals, labs and medications were reviewed. No other issues per patient, nursing or therapy. Objective - Exam Narrative Exam: MUSCULOSKELETAL SPECIALTY EXAM CONSTITUTIONAL: Well developed, well nourished, appropriately groomed. LEFT hand dominant. Head: Right craniectomy site sunken with mild dependent swelling at the base, soft RESPIRATORY: Clear to auscultation bilaterally, no increased work of breathing CARDIOVASCULAR: Regular Rate/ Rhythm, no swelling, edema or tenderness in BUE or BLE. All extremities warm. GI: + bowel sounds, soft, NTTP, nondistended. PEG tube present INTEGUMENTARY: Normal, no lesion, rash, masses or bruising noted in extremities. MUSCULOSKELETAL: Left shoulder subluxation, otherwise BUE and BLE normal without defect, crepitus, subluxation, effusion, arthritic changes or TTP. R 4+/5 L 0/5 ROM decreased on left, normal on right Tone flaccid on left, normal on right NEURO: CN II : Right visual colmenares full to confrontation, left blind CN III, IV, : EOMI on the right but right eye does preferentially veer towards the lateral aspect CN V : Facial sensation intact decreased on left CN VII : Slight left facial droop CN XI : Left shoulder shrug absent Sensation impaired on left with extinction, normal on right No tremor noted in 4 extremities. Naming and repetition intact. Follows 2 step commands. Aphasia not appreciated Dysarthria not appreciated Dysphagia present Neglect to left side with activity, right gaze preference. Does recognize the left and address it, just can not attend to it. POSTURE and GAIT: Sitting posture improving. Gait deferred. Sitting balance improving, starting to perform transfers with setup PSYCH: Alert, oriented x3, affect appears flattened. Insight appears mostly intact. - Constitutional Vitals: Vital Signs - 12hr 10/22/ 07:10 Temperature 99.1 F Pulse Rate 63 Respiratory 18 Rate Blood Pressure 117/62 O2 Sat by Pulse 97 Oximetry - Allied health notes Allied health notes reviewed: nursing, PT, ST, OT FIMS assessment as documented by PT/OT/ST: Social interaction/Memory/Problem solving Social Interaction FIM Score 6. Mod. [place] (Mostly appropriate. May need meds. No supv.) Memory FIM Score 4. Minimal Assistance (Recognizes and remembers 75-90%.) Problem Solving FIM Score 4. Minimal Assistance (Solves routine problems 75-90%.) Transfers Mode of Locomotion: Wheelchair Bed/Chair/Wheelchair Transfers 2. Maximal Assistance (Patient = 25% or more) FIM Score Dressing-Upper body Upper Body Dressing Device Drafter Assistant Patient retrieves clothing No items: Patient applies/removes UE No prosthesis or orthosis: Upper Body Dressing FIM Score 2. Maximal Assistance (Patient = 25% or more) Dressing-lower body Patient retrieves clothing No items: Patient applies/removes LE No prosthesis or orthosis: Lower Body Dressing FIM Score 2. Maximal Assistance (Patient = 25% or more) - Labs CBC & Chem 7: 10/22/19 08:27 10/22/19 08:27 Labs: Laboratory Results - last 72 hr 10/20/19 10/20/19 10/20/19 11:36 16:15 21:16 WBC RBC Hgb Hct MCV MCH MCHC RDW Plt Count Sodium Potassium Chloride Carbon Dioxide Anion Gap BUN Creatinine Estimated GFR BUN/Creatinine Ratio Glucose POC Glucose 147 H 120 H 164 H Calcium 10/21/19 10/21/19 10/21/19 08:18 11:21 16:51 WBC RBC Hgb Hct MCV MCH MCHC RDW Plt Count Sodium Potassium Chloride Carbon Dioxide Anion Gap BUN Creatinine Estimated GFR BUN/Creatinine Ratio Glucose POC Glucose 86 165 H 243 H Calcium 10/21/19 10/22/19 10/22/19 21:10 07:43 08:27 WBC 5.7 RBC 4.93 Hgb 12.2 Hct 37.7 MCV 77 L MCH 25 L MCHC 32 RDW 16.3 H Plt Count 152 Sodium Potassium Chloride Carbon Dioxide Anion Gap BUN Creatinine Estimated GFR BUN/Creatinine Ratio Glucose POC Glucose 221 H 117 H Calcium 10/22/19 10/22/19 10/22/19 08:27 11:44 16:22 WBC RBC Hgb Hct MCV MCH MCHC RDW Plt Count Sodium 138 Potassium 3.8 Chloride 100.3 Carbon Dioxide 22 Anion Gap 20 BUN 13 Creatinine 0.9 Estimated GFR > 60 BUN/Creatinine Ratio 14 Glucose 113 H POC Glucose 154 H 245 H Calcium 9.3 10/22/19 10/23/19 23:58 07:23 WBC RBC Hgb Hct MCV MCH MCHC RDW Plt Count Sodium Potassium Chloride Carbon Dioxide Anion Gap BUN Creatinine Estimated GFR BUN/Creatinine Ratio Glucose POC Glucose 196 H 92 Calcium Assessment and Plan CVA, MCA, embolic with hemorrhagic conversion left dominant hemiplegia: Flaccid left side. Continue secondary stroke prevention (antithrombotic, statin (goal LDLC <70), BP control (goal less than 140/90), GLU control (goal A1c <7), and lifestyle modification). Monitor for recurrent stroke or post-stroke recrudescence. Continue neuromotor therapy as above. Family training when available. Monitor for post-stroke depression, cognitive deficits, seizure, dysphagia, aphasia, shoulder-hand syndrome, sensory deficits, spasticity, bowel/bladder deficits, sleep disturbance, vision deficits, pressure sores and DVT. Prognosis for recovery and secondary stroke prevention discussed with patient and family. Follow-up with neurology. No driving until cleared by neurologist. Paroxysmal atrial fibrillation: Continue rate control and anticoagulation. Adjust medications as needed. Monitor for palpitations, dyspnea, lightheadedness, chest pain, fatigue. EKG as needed. Diastolic dysfunction: Monitor for any exacerbation of diastolic dysfunction. Hypertension: Continue medications. Monitor blood pressure every 4 hours while awake. Adjust medications as needed for normotension and hold for hypotension. Diabetes type 2: Continue current diet. Monitor blood glucose before meals and at bedtime. Sliding scale insulin. Adjust medications as needed for normoglycemia. Skin checks per nursing to identify any new wounds. Left upper extremity and left lower extremity DVT: Continue Eliquis. Monitor for any signs of worsening condition. Patient does have a IVC filter installed as well. Dysphagia: Medications and supplemental feeds through PEG. Continue current diet. POLLUTION CONTROL ENGINEER to monitor and advance diet as able, and perform FEES, MBSS or e-stim as needed. Shoulder subluxation: Continue strengthening exercises for improvement of shoulder subluxation. Arm tray while in wheelchair. Prop the arm on pillows including hand for elevation while in bed. Consider kinesiotaping and/or e- stim. Lidoderm Anemia: Microcytic. Replace iron, folate, vitamin C. monitor. Hemoglobin has recovered however still very microcytic Cognition: Continue amantadine at breakfast as well as lunch. Patient was previ ously getting this every 12 hours we should see a little bit better tolerance for it scheduled appropriately. Monitor for improvement. Supportive care and therapy. Family involvement as available. Continue reminders throughout therapy and the day to ensure patient safety. Altered sensation on the left: Monitor for skin wounds. Improve patient's ability to self monitor placement of limbs to avoid injury. Medication as needed for painful paresthesias. Poor nutritional intake: Check nutrition labs including pre-albumin (0.211 slightly better than normal). Monitor oral intake and weights. Patient is on appetite stimulant, continue Remeron. TF for <50% eaten. Right craniectomy: Currently sunken with very slight CSF collection at the base of the craniectomy. Monitor for any changes in volume and notified neurosurgeon if this occurs. Helmet on anytime out of bed. When out of bed with helmet on need to monitor periodically for swelling. ADL dysfunction: OT will work on improving ability to perform ADLs (including assistive devices) to increase independence and decrease caregiver burden and improve functional transfers and mobility training. Difficulty walking: PT will work on gait training and proper use of assistive devices and advance as appropriate to use of stairs and outside ambulation on uneven surfaces. Unsteadiness on feet: PT will work on improving static and dynamic sitting and standing balance as well as proper use of assistive devices to decrease risk of falls. Abnormality of gait: PT will work to improve safety and efficiency of gait through neuromotor training and gait training along with instruction on proper use of assistive devices. Muscle weakness: PT & OT will work on strengthening exercises to improve functional strength including mixture of closed and open kinetic chain exercises. Debility: PT & OT will work on improving overall functional status to improve participation with ADLs, mobility and social involvement. Fatigue: PT & OT will work on improving endurance through aerobic exercises and therapeutic activity while monitoring patients tolerance for activity and vital signs as needed. DVT ppx: Eliquis for atrial fibrillation Pain: Continue physical modalities in therapy and pain medications as needed to achieve functional pain control. Sleep: Monitor and address as needed. Melatonin Bowel: Monitor and address as needed. Increased medications, scheduled. Continue to monitor Appetite: Monitor and address as needed. Mirtazapine Discharge planning: Pending therapy progress and care plan meeting. Will continue discussion with therapy team, SW, patient and family. Restrictions/ Precautions: Falls, craniectomy (helmet on when out of bed), low bed, decreased sensation on left WB status: FWB Functional Hx: ADLs: Independent Cognition: Independent Mobility: No AD Working on having the family come in for family training. Family is adamant that they are not sending him back to a [facility] which is where he came to us from. Making some improvement with transfers, hopeful for ability to continue making improvement. Will discuss tomorrow. Working with the family we hope to reduce the level of caregiver burden and to educate them on how to safely provide care for Mr. Condon as he transitions back home. They will need all medical equipment including Ana lift, wheelchair, and a hospital bed (may change based on clinical pictures). Will discuss with the family when they arrive so that we can make the appropriate orders and not duplicate any materials that they currently have at home. Barriers to Discharge: Decreased mobility and ability to perform self care, balance deficits, weakness, craniectomy, left dominant hemiplegia, dysphagia Estimated Length of Stay: 1421 days Discharge Destination: Home with family
[2019-10-23] MEDS: POLYETHYLENE GLYCOL 3350 17 GM POWDER FEEDTUBE SCH (14:28)
[2019-10-23] MEDS: LISINOPRIL 40 MG TAB FEEDTUBE SCH (14:35)
[2019-10-23] MEDS: amLODIPine 10 MG TAB FEEDTUBE SCH (14:36)
[2019-10-23] MEDS: MELATONIN 5 MG TAB PO SCH (21:33)
[2019-10-23] MEDS: MIRTAZAPINE 15 MG TAB FEEDTUBE SCH (21:34)
[2019-10-23] MEDS: INSULIN GLARGINE 100 UNITS/ML SUB-Q SCH (21:35)
[2019-10-23] MEDS: SENNOSIDES 8.6 MG TAB PO SCH (21:38)
[2019-10-24] MEDS: traMADol 50 MG TAB FEEDTUBE PRN (04:35)
[2019-10-24] MEDS: INSULIN LISPRO 100 UNIT/ML SUB-Q SCH ×4 (07:15→21:48)
[2019-10-24] MEDS: AMANTADINE FEEDTUBE SCH ×2 (09:00→13:45)
[2019-10-24] MEDS: hydrALAZINE 100 MG TAB FEEDTUBE SCH ×3 (09:00→21:47)
[2019-10-24] MEDS: FERROUS SULFATE 325 MG TAB PO SCH ×2 (11:03→21:47)
[2019-10-24] MEDS: carvediloL 6.25 MG TAB FEEDTUBE SCH ×2 (11:04→21:47)
[2019-10-24] MEDS: APIXABAN 5 MG TAB FEEDTUBE SCH ×2 (11:04→21:48)
[2019-10-24] MEDS: LISINOPRIL 40 MG TAB FEEDTUBE SCH (11:04)
[2019-10-24] MEDS: ASCORBIC ACID 500 MG TAB PO SCH ×2 (11:05→21:47)
[2019-10-24] MEDS: amLODIPine 10 MG TAB FEEDTUBE SCH (11:05)
[2019-10-24] MEDS: FOLIC ACID 1 MG TAB PO SCH (11:05)
[2019-10-24] MEDS: FAMOTIDINE 20 MG TAB FEEDTUBE SCH ×2 (11:05→21:47)
[2019-10-24] MEDS: LIDOCAINE 5% 1 EACH PATCH TD SCH (11:45)
[2019-10-24] MEDS: ONDANSETRON 4 MG ODT TAB PO PRN (13:57)
[2019-10-24] MEDS: POLYETHYLENE GLYCOL 3350 17 GM POWDER FEEDTUBE SCH (13:58)
--- NOTE | 2019-10-24 15:27 | Progress Note ---
Subjective Date of service: 10/24/19 Principal diagnosis: CVA Interval history: 64-year-old male who presented to [facility] on August 11 with acute onset of left-sided weakness. 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 Alteplase was given on 08/11. He developed delayed cerebral edema and hemorrhagic conversion. CT head showed large right-sided MCA territory infarct with scattered hyperdensities and cerebral edema with midline shift on August 13. August 15 there is an increase to 7 mm from the previous [address] with new petechial hemorrhages. Neurosurgery was consulted and ultimately required a decompressive hemicraniectomy on August 22. He continued to have increased bleeding prompting aspirin to be held on August 25. Patient was transferred from the ICU to neurology general floor on August 27. MRI brain on August 30 showed evolving large right MCA infarct with hemorrhagic transformation. Stable appearing midline shift. Hematoma superficial to craniotomy in the right temporalis muscle. On 08/30 he underwent Ultrasound Doppler venous left upper extremity showed a nonocclusive deep vein thrombosis in the left axillary vein and a thrombus within the superficial basilic vein. Ultrasound Doppler venous left lower extremity showed chronic DVT of the left common femoral vein on 09/04 for which an IVC filter was placed on September 06. PEG was placed on September 10 due to poor oral intake and dysphasia. EKG and telemetry monitoring showed paroxysmal atrial fibrillation. TTE showed an ejection fraction of 50 to 55% with severely dilated left atrium and impaired left ventricle relaxation. Patient was tolerating a bolus tube feed diet of Nutren 1.5 max of 5 cans/day with free water flushes 100 mils before and after each feed if the patient ate less than 25% bolus 2 cans, 50% bolus 1 can, greater than 50% no bolus. Stroke labs at outside hospital A1c 7.1, TSH 1.375, total cholesterol 198, LDL 132, RPR nonreactive, INR 1.1. Patient was transition to Eliquis as a secondary stroke prevention and anticoagulation for atrial fibrillation. He was taken off of aspirin due to risk of bleeding prior to leaving the hospital and [facility]. The physicians at the hospital also made recommendation for considering a watchman device as an outpatient. 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 After the patient was stabilized he was transferred to subacute rehabilitation. Family visited our inpatient rehabilitation and was unhappy with his lack of progress at subacute and noted that he has been participating more with therapy but do not feel like he is getting the amount of therapy that he could truly benefit from. After discussion with the family as well as the facility and review of the past we opted to accept the patient to give him an opportunity to participate in a more intensive therapy schedule. Several discussions had with family on final disposition and ensuring that he would be going home regardless of how much recovery we were able to make. Patient was transferred to us from a subacute rehab where he has been since September 20. After the patient was medically stabilized they were transferred for further rehabilitation. All available medical records have been reviewed. Plan of care, prognosis, expectations, secondary stroke prevention, discharge planning was discussed with patient and family (2 daughters). Day prior to admission 48 minutes were spent reviewing all available records from the outside hospital as well as the penitentiary facility in preparation for transfer of the patient to acute inpatient rehabilitation. Interval history: Patient is participating in therapy and making slow progress. Taking rest breaks as needed. +BM. Afebrile. Denies palpitations, dyspnea, cough. Patient does admit to some nausea today but denies vomiting. There was reported by staff that he had vomiting. Uncertain at this point with his cognitive issues if his recollection is trustworthy. Feels better currently without any continued nausea vomiting. Family should be coming for family training, this will be complicated due to the restrictions on visitors currently. Will need them here as much as possible in order to ensure that they understand how to provide proper care for Mr. Condon at home. All records, vitals, labs and medications were reviewed. No other issues per patient, nursing or therapy. CVA: Patient making progress with therapy. Continue to monitor for worsening neurologic function. Continue secondary stroke prevention. No change in hemiplegia, no spasticity, no change in dysphagia. Left shoulder sublux: Pain somewhat better since starting Lidoderm, monitor. Discussed again that he needs to keep it supported Hemicraniectomy: Sunken, helmet on when out of bed, well-healed continue to monitor Constipation: Continue bowel meds and monitor for improvement. Paroxysmal atrial fibrillation: Denies palpitations, rate controlled, tolerating anticoagulation. Continue to monitor Hypertension: Blood pressures been in a good range. Continue to monitor Diabetes: Glucose checks have been reasonable. Continue to monitor and adjust insulin as needed based on oral intake. Anemia: Hemoglobin level has normalized, however he is still microcytic. Nutrition: Oral intake is variable. Utilizing PEG tube for nutritional supplementation if less than 50% of meal eaten. We will continue to monitor and continue appetite stimulant. Cognition: Continue amantadine and monitor for improvement. Patient seems alert and interactive today. Patient was discussed in team conference today. Unfortunately he has not part icipating much with speech therapy. He is making some progress with PT and OT however seems to be slightly limited based on the continued hemiplegia. Will definitely push for family training in order to safely discharge him home. At this point it appears we may be able to forego utilizing a Ana lift if he continues making the progress that he is. Will still need a hospital bed as well as wheelchair and sliding board. All records, vitals, labs and medications were reviewed. No other issues per patient, nursing or therapy. Objective - Exam Narrative Exam: MUSCULOSKELETAL SPECIALTY EXAM CONSTITUTIONAL: Well developed, well nourished, appropriately groomed. LEFT hand dominant. Head: Right craniectomy site sunken , soft RESPIRATORY: Clear to auscultation bilaterally, no increased work of breathing CARDIOVASCULAR: Regular Rate/ Rhythm, no swelling, edema or tenderness in BUE or BLE. All extremities warm. GI: + bowel sounds, soft, NTTP, nondistended. PEG tube present INTEGUMENTARY: Normal, no lesion, rash, masses or bruising noted in extremities. MUSCULOSKELETAL: Left shoulder subluxation, otherwise BUE and BLE normal without defect, crepitus, subluxation, effusion, arthritic changes or TTP. R 4+/5 L 0/5 ROM decreased on left, normal on right Tone flaccid on left, normal on right NEURO: CN II : Right visual colmenares full to confrontation, left blind CN III, IV, : EOMI on the right but right eye does preferentially veer towards the lateral aspect CN V : Facial sensation intact decreased on left CN VII : Slight left facial droop CN XI : Left shoulder shrug absent Sensation impaired on left with extinction, normal on right No tremor noted in 4 extremities. Naming and repetition intact. Follows 2 step commands. Aphasia not appreciated Dysarthria not appreciated Dysphagia present Neglect to left side with activity, right gaze preference. Does recognize the left and address it, just can not attend to it. POSTURE and GAIT: Sitting posture improving. Gait deferred. Sitting balance improving, starting to perform transfers with setup, able to stand with assistance for short period of time. PSYCH: Alert, oriented x3, affect appears flattened. Insight appears mostly intact. - Constitutional Vitals: Vital Signs - 12hr 10/24/19 10/24/19 10/24/19 04:35 04:46 05:35 Temperature 98.9 F Pulse Rate 67 Respiratory 17 17 16 Rate Blood Pressure 136/76 O2 Sat by Pulse 97 Oximetry 10/24/19 07:05 Temperature 98.9 F Pulse Rate 62 Respiratory 20 Rate Blood Pressure 131/69 O2 Sat by Pulse 97 Oximetry - Allied health notes Allied health notes reviewed: nursing, PT, ST, OT FIMS assessment as documented by PT/OT/ST: Social interaction/Memory/Problem solving Social Interaction FIM Score 4. Minimal Assistance (Interacts appropriately 75-90%.) Memory FIM Score 4. Minimal Assistance (Recognizes and remembers 75-90%.) Problem Solving FIM Score 4. Minimal Assistance (Solves routine problems 75-90%.) Transfers Mode of Locomotion: Wheelchair Bed/Chair/Wheelchair Transfers 2. Maximal Assistance (Patient = 25% or more) FIM Score Dressing-Upper body Upper Body Dressing Device Clinical Pharmacy Manager Patient retrieves clothing No items: Patient applies/removes UE No prosthesis or orthosis: Upper Body Dressing FIM Score 2. Maximal Assistance (Patient = 25% or more) Dressing-lower body Patient retrieves clothing No items: Patient applies/removes LE No prosthesis or orthosis: Lower Body Dressing FIM Score 2. Maximal Assistance (Patient = 25% or more) - Labs CBC & Chem 7: 10/22/19 08:27 10/22/19 08:27 Labs: Laboratory Results - last 72 hr 10/21/19 10/21/19 10/22/19 16:51 21:10 07:43 WBC RBC Hgb Hct MCV MCH MCHC RDW Plt Count Sodium Potassium Chloride Carbon Dioxide Anion Gap BUN Creatinine Estimated GFR BUN/Creatinine Ratio Glucose POC Glucose 243 H 221 H 117 H Calcium 10/22/19 10/22/19 10/22/19 08:27 08:27 11:44 WBC 5.7 RBC 4.93 Hgb 12.2 Hct 37.7 MCV 77 L MCH 25 L MCHC 32 RDW 16.3 H Plt Count 152 Sodium 138 Potassium 3.8 Chloride 100.3 Carbon Dioxide 22 Anion Gap 20 BUN 13 Creatinine 0.9 Estimated GFR > 60 BUN/Creatinine Ratio 14 Glucose 113 H POC Glucose 154 H Calcium 9.3 10/22/19 10/22/19 10/23/19 16:22 23:58 07:23 WBC RBC Hgb Hct MCV MCH MCHC RDW Plt Count Sodium Potassium Chloride Carbon Dioxide Anion Gap BUN Creatinine Estimated GFR BUN/Creatinine Ratio Glucose POC Glucose 245 H 196 H 92 Calcium 10/23/19 10/23/19 10/23/19 12:13 16:14 20:55 WBC RBC Hgb Hct MCV MCH MCHC RDW Plt Count Sodium Potassium Chloride Carbon Dioxide Anion Gap BUN Creatinine Estimated GFR BUN/Creatinine Ratio Glucose POC Glucose 168 H 240 H 113 H Calcium 10/24/19 10/24/19 07:14 12:03 WBC RBC Hgb Hct MCV MCH MCHC RDW Plt Count Sodium Potassium Chloride Carbon Dioxide Anion Gap BUN Creatinine Estimated GFR BUN/Creatinine Ratio Glucose POC Glucose 168 H 175 H Calcium Assessment and Plan CVA, MCA, embolic with hemorrhagic conversion left dominant hemiplegia: Flaccid left side. Continue secondary stroke prevention (antithrombotic, statin (goal LDLC <70), BP control (goal less than 140/90), GLU control (goal A1c <7), and lifestyle modification). Monitor for recurrent stroke or post-stroke recrudescence. Continue neuromotor therapy as above. Family training when available. Monitor for post-stroke depression, cognitive deficits, seizure, dysphagia, aphasia, shoulder-hand syndrome, sensory deficits, spasticity, bowel/bladder deficits, sleep disturbance, vision deficits, pressure sores and DVT. Prognosis for recovery and secondary stroke prevention discussed with patient and family. Follow-up with neurology. No driving until cleared by neurologist. Paroxysmal atrial fibrillation: Continue rate control and anticoagulation. Adjust medications as needed. Monitor for palpitations, dyspnea, lighthea dedness, chest pain, fatigue. EKG as needed. Diastolic dysfunction: Monitor for any exacerbation of diastolic dysfunction. Hypertension: Continue medications. Monitor blood pressure every 4 hours while awake. Adjust medications as needed for normotension and hold for hypotension. Diabetes type 2: Continue current diet. Monitor blood glucose before meals and at bedtime. Sliding scale insulin. Adjust medications as needed for normoglycemia. Skin checks per nursing to identify any new wounds. Left upper extremity and left lower extremity DVT: Continue Eliquis. Monitor for any signs of worsening condition. Patient does have a IVC filter installed as well. Dysphagia: Medications and supplemental feeds through PEG. Continue current diet. CARRY OUT CLERK AND SHELF STOCKER to monitor and advance diet as able, and perform FEES, MBSS or e-stim as needed. Shoulder subluxation: Continue strengthening exercises for improvement of shoulder subluxation. Arm tray while in wheelchair. Prop the arm on pillows in cluding hand for elevation while in bed. Consider kinesiotaping and/or e-stim. Lidoderm Anemia: Microcytic. Replace iron, folate, vitamin C. monitor. Hemoglobin has recovered however still very microcytic Cognition: Continue amantadine at breakfast as well as lunch. Patient was previously getting this every 12 hours we should see a little bit better tolerance for it scheduled appropriately. Monitor for improvement. Supportive care and therapy. Family involvement as available. Continue reminders throughout therapy and the day to ensure patient safety. Altered sensation on the left: Monitor for skin wounds. Improve patient's ability to self monitor placement of limbs to avoid injury. Medication as needed for painful paresthesias. Poor nutritional intake: Check nutrition labs including pre-albumin (0.211 slightly better than normal). Monitor oral intake and weights. Patient is on appetite stimulant, continue Remeron. TF for <50% eaten. Right craniectomy: Currently sunken with very slight CSF collection at the base of the craniectomy. Monitor for any changes in volume and notified neurosurgeon if this occurs. Helmet on anytime out of bed. When out of bed with helmet on need to monitor periodically for swelling. ADL dysfunction: OT will work on improving ability to perform ADLs (including assistive devices) to increase independence and decrease caregiver burden and improve functional transfers and mobility training. Difficulty walking: PT will work on gait training and proper use of assistive devices and advance as appropriate to use of stairs and outside ambulation on uneven surfaces. Unsteadiness on feet: PT will work on improving static and dynamic sitting and standing balance as well as proper use of assistive devices to decrease risk of falls. Abnormality of gait: PT will work to improve safety and efficiency of gait through neuromotor training and gait training along with instruction on proper use of assistive devices. Muscle weakness: PT & OT will work on strengthening exercises to improve functional strength including mixture of closed and open kinetic chain exercises. Debility: PT & OT will work on improving overall functional status to improve participation with ADLs, mobility and social involvement. Fatigue: PT & OT will work on improving endurance through aerobic exercises and therapeutic activity while monitoring patients tolerance for activity and vital signs as needed. DVT ppx: Eliquis for atrial fibrillation Pain: Continue physical modalities in therapy and pain medications as needed to achieve functional pain control. Sleep: Monitor and address as needed. Melatonin Bowel: Monitor and address as needed. Increased medications, scheduled. Continue to monitor Appetite: Monitor and address as needed. Mirtazapine Discharge planning: Pending therapy progress and care plan meeting. Will continue discussion with therapy team, SW, patient and family. Restrictions/ Precautions: Falls, craniectomy (helmet on when out of bed), low bed, decreased sensation on left WB status: FWB Functional Hx: ADLs: Independent Cognition: Independent Mobility: No AD Working on having the family come in for family training. Family is adamant that they are not sending him back to a shelter which is where he came to us from. Making some improvement with transfers, hopeful for ability to continue making improvement. Will discuss tomorrow. Working with the family we hope to reduce the level of caregiver burden and to educate them on how to safely provide care for Mr. Condon as he transitions back home. They will need all medical equipment including Ana lift, wheelchair, and a hospital bed (may change based on clinical pictures). Will discuss with the family when they arrive so that we can make the appropriate orders and not duplicate any materials that they currently have at home. Barriers to Discharge: Decreased mobility and ability to perform self care, balance deficits, weakness, craniectomy, left dominant hemiplegia, dysphagia Estimated Length of Stay: 1421 days Discharge Destination: Home with family
[2019-10-24] MEDS: MELATONIN 5 MG TAB PO SCH (21:47)
[2019-10-24] MEDS: SENNOSIDES 8.6 MG TAB PO SCH (21:47)
[2019-10-24] MEDS: MIRTAZAPINE 15 MG TAB FEEDTUBE SCH (21:54)
[2019-10-24] MEDS: INSULIN GLARGINE 100 UNITS/ML SUB-Q SCH (21:54)
[2019-10-25] MEDS: FOLIC ACID 1 MG TAB PO SCH (08:51)
[2019-10-25] MEDS: ASCORBIC ACID 500 MG TAB PO SCH ×2 (08:51→22:19)
[2019-10-25] MEDS: FERROUS SULFATE 325 MG TAB PO SCH ×2 (08:52→22:17)
[2019-10-25] MEDS: FAMOTIDINE 20 MG TAB FEEDTUBE SCH ×2 (08:52→22:18)
[2019-10-25] MEDS: carvediloL 6.25 MG TAB FEEDTUBE SCH ×2 (08:52→22:18)
[2019-10-25] MEDS: amLODIPine 10 MG TAB FEEDTUBE SCH (08:53)
[2019-10-25] MEDS: LIDOCAINE 5% 1 EACH PATCH TD SCH (08:54)
[2019-10-25] MEDS: AMANTADINE FEEDTUBE SCH ×2 (08:55→12:09)
[2019-10-25] MEDS: INSULIN LISPRO 100 UNIT/ML SUB-Q SCH ×4 (08:55→22:00)
[2019-10-25] MEDS: POLYETHYLENE GLYCOL 3350 17 GM POWDER FEEDTUBE SCH (08:55)
[2019-10-25] MEDS: LISINOPRIL 40 MG TAB FEEDTUBE SCH (08:56)
[2019-10-25] MEDS: APIXABAN 5 MG TAB FEEDTUBE SCH ×2 (09:17→22:19)
[2019-10-25] MEDS: hydrALAZINE 100 MG TAB FEEDTUBE SCH ×2 (09:18→19:27)
--- NOTE | 2019-10-25 13:23 | Progress Note ---
Subjective Date of service: 10/25/19 Principal diagnosis: CVA Interval history: 64-year-old male who presented to [facility] on August 11 with acute onset of left-sided weakness. 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 Alteplase was given on 08/11. He developed delayed cerebral edema and hemorrhagic conversion. CT head showed large right-sided MCA territory infarct with scattered hyperdensities and cerebral edema with midline shift on August 13. August 15 there is an increase to 7 mm from the previous [address] with new petechial hemorrhages. Neurosurgery was consulted and ultimately required a decompressive hemicraniectomy on August 22. He continued to have increased bleeding prompting aspirin to be held on August 25. Patient was transferred from the ICU to neurology general floor on August 27. MRI brain on August 30 showed evolving large right MCA infarct with hemorrhagic transformation. Stable appearing midline shift. Hematoma superficial to craniotomy in the right temporalis muscle. On 08/30 he underwent Ultrasound Doppler venous left upper extremity showed a nonocclusive deep vein thrombosis in the left axillary vein and a thrombus within the superficial basilic vein. Ultrasound Doppler venous left lower extremity showed chronic DVT of the left common femoral vein on 09/04 for which an IVC filter was placed on September 06. PEG was placed on September 10 due to poor oral intake and dysphasia. EKG and telemetry monitoring showed paroxysmal atrial fibrillation. TTE showed an ejection fraction of 50 to 55% with severely dilated left atrium and impaired left ventricle relaxation. Patient was tolerating a bolus tube feed diet of Nutren 1.5 max of 5 cans/day with free water flushes 100 mils before and after each feed if the patient ate less than 25% bolus 2 cans, 50% bolus 1 can, greater than 50% no bolus. Stroke labs at outside hospital A1c 7.1, TSH 1.375, total cholesterol 198, LDL 132, RPR nonreactive, INR 1.1. Patient was transition to Eliquis as a secondary stroke prevention and anticoagulation for atrial fibrillation. He was taken off of aspirin due to risk of bleeding prior to leaving the hospital and [facility]. The physicians at the hospital also made recommendation for considering a watchman device as an outpatient. 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 After the patient was stabilized he was transferred to subacute rehabilitation. Family visited our inpatient rehabilitation and was unhappy with his lack of progress at subacute and noted that he has been participating more with therapy but do not feel like he is getting the amount of therapy that he could truly benefit from. After discussion with the family as well as the facility and review of the past we opted to accept the patient to give him an opportunity to participate in a more intensive therapy schedule. Several discussions had with family on final disposition and ensuring that he would be going home regardless of how much recovery we were able to make. Patient was transferred to us from a subacute rehab where he has been since September 20. After the patient was medically stabilized they were transferred for further rehabilitation. All available medical records have been reviewed. Plan of care, prognosis, expectations, secondary stroke prevention, discharge planning was discussed with patient and family (2 daughters). Day prior to admission 48 minutes were spent reviewing all available records from the outside hospital as well as the prison facility in preparation for transfer of the patient to acute inpatient rehabilitation. Interval history: Patient is participating in therapy and making slow progress. Taking rest breaks as needed. +BM. Afebrile. Denies palpitations, dyspnea, cough. Denies nausea vomiting this morning. Patient has variable interaction and responses to therapy from day-to-day. Seem to be a little drowsy today. Family should be coming for family training, this will be complicated due to the restrictions on visitors currently. Will need them here as much as possible in order to ensure that they understand how to provide proper care for Mr. oCndon at home. All records, vitals, labs and medications were reviewed. No other issues per patient, nursing or therapy. CVA: Patient making progress with therapy. Continue to monitor for worsening neurologic function. Continue secondary stroke prevention. No change in hem iplegia, no spasticity, no change in dysphagia. Left shoulder sublux: Pain somewhat better since starting Lidoderm, monitor. Discussed again that he needs to keep it supported Hemicraniectomy: Sunken, helmet on when out of bed, well-healed continue to monitor Constipation: Continue bowel meds and monitor for improvement. Paroxysmal atrial fibrillation: Denies palpitations, rate controlled, tolerating anticoagulation. Continue to monitor Hypertension: Blood pressures been in a good range. Continue to monitor Diabetes: Glucose checks have been reasonable. Continue to monitor and adjust insulin as needed based on oral intake. Anemia: Hemoglobin level has normalized, however he is still microcytic. Nutrition: Oral intake is variable. Utilizing PEG tube for nutritional supplementation if less than 50% of meal eaten. We will continue to monitor and continue appetite stimulant. Cognition: Continue amantadine and monitor for improvement. Patient seems alert and interactive today. All records, vitals, labs and medications were reviewed. No other issues per patient, nursing or therapy. Objective - Exam Narrative Exam: MUSCULOSKELETAL SPECIALTY EXAM CONSTITUTIONAL: Well developed, well nourished, appropriately groomed. LEFT hand dominant. Head: Right craniectomy site sunken , soft RESPIRATORY: Clear to auscultation bilaterally, no increased work of breathing CARDIOVASCULAR: Regular Rate/ Rhythm, no swelling, edema or tenderness in BUE or BLE. All extremities warm. GI: + bowel sounds, soft, NTTP, nondistended. PEG tube present INTEGUMENTARY: Normal, no lesion, rash, masses or bruising noted in extremities. MUSCULOSKELETAL: Left shoulder subluxation, otherwise BUE and BLE normal without defect, crepitus, subluxation, effusion, arthritic changes or TTP. R 4+/5 L 0/5 ROM decreased on left, normal on right Tone flaccid on left, normal on right NEURO: CN II : Right visual colmenares full to confrontation, left blind CN III, IV, : EOMI on the right but right eye does preferentially veer towards the lateral aspect CN V : Facial sensation intact decreased on left CN VII : Slight left facial droop CN XI : Left shoulder shrug absent Sensation impaired on left with extinction, normal on right No tremor noted in 4 extremities. Naming and repetition intact. Follows 2 step commands. Aphasia not appreciated Dysarthria not appreciated Dysphagia present Neglect to left side with activity, right gaze preference. Does recognize the l eft and address it, just can not attend to it. POSTURE and GAIT: Sitting posture improving. Gait deferred. Sitting balance improving, starting to perform transfers with setup, able to stand with assistance for short period of time. PSYCH: Drowsy, oriented x3, affect appears flattened. Insight appears mostly intact. - Constitutional Vitals: Vital Signs - 12hr 10/25/19 10/25/19 10/25/19 04:57 07:19 08:52 Temperature 99.0 F 97.7 F Pulse Rate 62 67 Respiratory 17 18 Rate Blood Pressure 113/56 107/70 107/70 O2 Sat by Pulse 97 Oximetry 10/25/19 10/25/19 08:53 08:56 Temperature Pulse Rate 67 67 Respiratory Rate Blood Pressure 107/70 107/70 O2 Sat by Pulse Oximetry - Allied health notes Allied health notes reviewed: nursing, PT, ST, OT FIMS assessment as documented by PT/OT/ST: Social interaction/Memory/Problem solving Social Interaction FIM Score 2. Maximal Assistance (Appropriate 25-49% or needs restraint.) Memory FIM Score 3. Moderate Assistance (Recognizes and remembers 50-74%.) Problem Solving FIM Score 2. Maximal Assistance (Solves problems 25-49% or needs restraint.) Transfers Mode of Locomotion: Wheelchair Bed/Chair/Wheelchair Transfers 3. Moderate Assistance (Patient = 50% or more. 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 Maximal Assistance (Patient = 25% or more) Dressing-lower body Patient retrieves clothing No items: Patient applies/removes LE No prosthesis or orthosis: Lower Body Dressing FIM Score 2. Maximal Assistance (Patient = 25% or more) - Labs CBC & Chem 7: 10/22/19 08:27 10/22/19 08:27 Labs: Laboratory Results - last 72 hr 10/22/19 10/22/19 10/23/19 16:22 23:58 07:23 POC Glucose 245 H 196 H 92 10/23/19 10/23/19 10/23/19 12:13 16:14 20:55 POC Glucose 168 H 240 H 113 H 10/24/19 10/24/19 10/24/19 07:14 12:03 16:31 POC Glucose 168 H 175 H 187 H 10/24/19 10/25/19 10/25/19 21:50 07:15 11:15 POC Glucose 132 H 147 H 190 H Assessment and Plan CVA, MCA, embolic with hemorrhagic conversion left dominant hemiplegia: Flaccid left side. Continue secondary stroke prevention (antithrombotic, statin (goal LDLC <70), BP control (goal less than 140/90), GLU control (goal A1c <7), and lifestyle modification). Monitor for recurrent stroke or post-stroke recrudescence. Continue neuromotor therapy as above. Family training when available. Monitor for post-stroke depression, cognitive deficits, seizure, dysphagia, aphasia, shoulder-hand syndrome, sensory deficits, spasticity, bowel/bladder deficits, sleep disturbance, vision deficits, pressure sores and DVT. Prognosis for recovery and secondary stroke prevention discussed with patient and family. Follow-up with neurology. No driving until cleared by neurologist. Paroxysmal atrial fibrillation: Continue rate control and anticoagulation. Adjust medications as needed. Monitor for palpitations, dyspnea, lightheadedness, chest pain, fatigue. EKG as needed. Diastolic dysfunction: Monitor for any exacerbation of diastolic dysfunction. Hypertension: Continue medications. Monitor blood pressure every 4 hours while awake. Adjust medications as needed for normotension and hold for hypotension. Diabetes type 2: Continue current diet. Monitor blood glucose before meals and at bedtime. Sliding scale insulin. Adjust medications as needed for normoglycemia. Skin checks per nursing to identify any new wounds. Left upper extremity and left lower extremity DVT: Continue Eliquis. Monitor for any signs of worsening condition. Patient does have a IVC filter installed as well. Dysphagia: Medications and supplemental feeds through PEG. Continue current diet. 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 Shoulder subluxation: Continue strengthening exercises for improvement of shoulder subluxation. Arm tray while in wheelchair. Prop the arm on pillows including hand for elevation while in bed. Consider kinesiotaping and/or e- stim. Lidoderm Anemia: Microcytic. Replace iron, folate, vitamin C. monitor. Hemoglobin has recovered however still very microcytic Cognition: Continue amantadine at breakfast as well as lunch. Patient was previously getting this every 12 hours we should see a little bit better tolerance for it scheduled appropriately. Monitor for improvement. Supportive care and therapy. Family involvement as available. Continue reminders throughout therapy and the day to ensure patient safety. Altered sensation on the left: Monitor for skin wounds. Improve patient's ability to self monitor placement of limbs to avoid injury. Medication as needed for painful paresthesias. Poor nutritional intake: Check nutrition labs including pre-albumin (0.211 slightly better than normal). Monitor oral intake and weights. Patient is on appetite stimulant, continue Remeron. TF for <50% eaten. Right craniectomy: Currently sunken with very slight CSF collection at the base of the craniectomy. Monitor for any changes in volume and notified neurosurgeon if this occurs. Helmet on anytime out of bed. When out of bed with helmet on need to monitor periodically for swelling. ADL dysfunction: OT will work on improving ability to perform ADLs (including assistive devices) to increase independence and decrease caregiver burden and improve functional transfers and mobility training. Difficulty walking: PT will work on gait training and proper use of assistive devices and advance as appropriate to use of stairs and outside ambulation on uneven surfaces. Unsteadiness on feet: PT will work on improving static and dynamic sitting and standing balance as well as proper use of assistive devices to decrease risk of falls. Abnormality of gait: PT will work to improve safety and efficiency of gait through neuromotor training and gait training along with instruction on proper use of assistive devices. Muscle weakness: PT & OT will work on strengthening exercises to improve functional strength including mixture of closed and open kinetic chain exercises. Debility: PT & OT will work on improving overall functional status to improve participation with ADLs, mobility and social involvement. Fatigue: PT & OT will work on improving endurance through aerobic exercises and therapeutic activity while monitoring patients tolerance for activity and vital signs as needed. DVT ppx: Eliquis for atrial fibrillation Pain: Continue physical modalities in therapy and pain medications as needed to achieve functional pain control. Sleep: Monitor and address as needed. Melatonin Bowel: Monitor and address as needed. Increased medications, scheduled. Continue to monitor Appetite: Monitor and address as needed. Mirtazapine Discharge planning: Pending therapy progress and care plan meeting. Will continue discussion with therapy team, SW, patient and family. Restrictions/ Precautions: Falls, craniectomy (helmet on when out of bed), low bed, decreased sensation on left WB status: FWB Functional Hx: ADLs: Independent Cognition: Independent Mobility: No AD Working on having the family come in for family training. Family is adamant that they are not sending him back to a [facility] which is where he [facility] from. Making some improvement with transfers, hopeful for ability to continue making improvement. Will discuss tomorrow. Working with the family we hope to reduce the level of caregiver burden and to educate them on how to safely provide care for Mr. Condon as he transitions back home. They will need all medical equipment including Ana lift, wheelchair, and a hospital bed (may change based on clinical pictures). Will discuss with the family when they arrive so that we can make the appropriate orders and not duplicate any materials that they currently have at home. Barriers to Discharge: Decreased mobility and ability to perform self care, balance deficits, weakness, craniectomy, left dominant hemiplegia, dysphagia Estimated Length of Stay: 1421 days Discharge Destination: Home with family
[2019-10-25] MEDS: INSULIN GLARGINE 100 UNITS/ML SUB-Q SCH (21:00)
[2019-10-25] MEDS: SENNOSIDES 8.6 MG TAB PO SCH (21:00)
[2019-10-25] MEDS: MIRTAZAPINE 15 MG TAB FEEDTUBE SCH (21:00)
[2019-10-26] MEDS: FOLIC ACID 1 MG TAB PO SCH (09:27)
[2019-10-26] MEDS: APIXABAN 5 MG TAB FEEDTUBE SCH ×2 (09:27→21:55)
[2019-10-26] MEDS: FAMOTIDINE 20 MG TAB FEEDTUBE SCH ×2 (09:27→21:55)
[2019-10-26] MEDS: FERROUS SULFATE 325 MG TAB PO SCH ×2 (09:27→21:55)
[2019-10-26] MEDS: ASCORBIC ACID 500 MG TAB PO SCH ×2 (09:28→21:55)
[2019-10-26] MEDS: POLYETHYLENE GLYCOL 3350 17 GM POWDER FEEDTUBE SCH (09:28)
[2019-10-26] MEDS: AMANTADINE FEEDTUBE SCH ×2 (09:28→13:41)
[2019-10-26] MEDS: LIDOCAINE 5% 1 EACH PATCH TD SCH (09:28)
[2019-10-26] MEDS: LISINOPRIL 40 MG TAB FEEDTUBE SCH (09:31)
[2019-10-26] MEDS: hydrALAZINE 100 MG TAB FEEDTUBE SCH ×3 (09:32→21:56)
[2019-10-26] MEDS: carvediloL 6.25 MG TAB FEEDTUBE SCH ×2 (09:32→21:56)
[2019-10-26] MEDS: amLODIPine 10 MG TAB FEEDTUBE SCH (09:32)
[2019-10-26] MEDS: INSULIN LISPRO 100 UNIT/ML SUB-Q SCH ×4 (09:33→22:29)
[2019-10-26] MEDS: MELATONIN 5 MG TAB PO SCH ×2 (21:00→22:34)
[2019-10-26] MEDS: SENNOSIDES 8.6 MG TAB PO SCH (21:58)
[2019-10-26] MEDS: MIRTAZAPINE 15 MG TAB FEEDTUBE SCH (21:59)
[2019-10-26] MEDS: INSULIN GLARGINE 100 UNITS/ML SUB-Q SCH (22:30)
[2019-10-27] MEDS: INSULIN LISPRO 100 UNIT/ML SUB-Q SCH ×4 (08:22→23:58)
[2019-10-27] MEDS: AMANTADINE FEEDTUBE SCH ×2 (08:35→12:40)
[2019-10-27] MEDS: LIDOCAINE 5% 1 EACH PATCH TD SCH (08:35)
[2019-10-27] MEDS: FERROUS SULFATE 325 MG TAB PO SCH ×2 (08:35→22:25)
[2019-10-27] MEDS: POLYETHYLENE GLYCOL 3350 17 GM POWDER FEEDTUBE SCH (08:38)
[2019-10-27] MEDS: FAMOTIDINE 20 MG TAB FEEDTUBE SCH ×2 (08:38→22:25)
[2019-10-27] MEDS: carvediloL 6.25 MG TAB FEEDTUBE SCH ×2 (08:39→22:26)
[2019-10-27] MEDS: APIXABAN 5 MG TAB FEEDTUBE SCH ×2 (08:39→22:25)
[2019-10-27] MEDS: LISINOPRIL 40 MG TAB FEEDTUBE SCH (08:40)
[2019-10-27] MEDS: amLODIPine 10 MG TAB FEEDTUBE SCH (08:40)
[2019-10-27] MEDS: ASCORBIC ACID 500 MG TAB PO SCH ×2 (08:41→22:25)
[2019-10-27] MEDS: hydrALAZINE 100 MG TAB FEEDTUBE SCH ×3 (08:41→21:26)
[2019-10-27] MEDS: FOLIC ACID 1 MG TAB PO SCH (08:41)
[2019-10-27] MEDS: SENNOSIDES 8.6 MG TAB PO SCH (22:24)
[2019-10-27] MEDS: MIRTAZAPINE 15 MG TAB FEEDTUBE SCH (22:25)
[2019-10-27] MEDS: MELATONIN 5 MG TAB PO SCH (22:25)
[2019-10-27] MEDS: INSULIN GLARGINE 100 UNITS/ML SUB-Q SCH (22:27)
[2019-10-28 07:54] LABS: Hematocrit 36.8 % (35.5-45.6); Mean Corpuscular HGB Conc 33 % (32-34); Mean Corpuscular Volume 76 fl (84-94); Platelet Count 154 K/mm3 (140-440); Red Blood Count 4.85 M/mm3 (3.65-5.03); Red Cell Distribution Width 16.5 % (13.2-15.2)
[2019-10-28 08:15] LABS: BUN/Creatinine Ratio 16; Blood Urea Nitrogen 16 mg/dL (9-20); Calcium 9.5 mg/dL (8.4-10.2); Hemolysis Index 11
[2019-10-28] MEDS: AMANTADINE FEEDTUBE SCH ×2 (08:39→13:06)
[2019-10-28] MEDS: FERROUS SULFATE 325 MG TAB PO SCH ×2 (08:39→21:50)
[2019-10-28] MEDS: FAMOTIDINE 20 MG TAB FEEDTUBE SCH ×2 (08:39→21:50)
[2019-10-28] MEDS: ASCORBIC ACID 500 MG TAB PO SCH ×2 (08:39→21:49)
[2019-10-28] MEDS: carvediloL 6.25 MG TAB FEEDTUBE SCH ×2 (08:40→21:50)
[2019-10-28] MEDS: hydrALAZINE 100 MG TAB FEEDTUBE SCH ×3 (08:40→21:51)
[2019-10-28] MEDS: FOLIC ACID 1 MG TAB PO SCH (08:40)
[2019-10-28] MEDS: LISINOPRIL 40 MG TAB FEEDTUBE SCH (08:40)
[2019-10-28] MEDS: amLODIPine 10 MG TAB FEEDTUBE SCH (08:40)
[2019-10-28] MEDS: INSULIN LISPRO 100 UNIT/ML SUB-Q SCH ×4 (08:41→21:58)
[2019-10-28] MEDS: LIDOCAINE 5% 1 EACH PATCH TD SCH (08:51)
[2019-10-28] MEDS: APIXABAN 5 MG TAB FEEDTUBE SCH ×2 (09:00→21:50)
[2019-10-28] MEDS: POLYETHYLENE GLYCOL 3350 17 GM POWDER FEEDTUBE SCH (09:00)
--- NOTE | 2019-10-28 09:49 | Progress Note ---
Subjective Date of service: 10/28/19 Principal diagnosis: CVA Interval history: 64-year-old male who presented to [facility] on August 11 with acute onset of left-sided weakness. 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 Alteplase was given on 08/11. He developed delayed cerebral edema and hemorrhagic conversion. CT head showed large right-sided MCA territory infarct with scattered hyperdensities and cerebral edema with midline shift on August 13. August 15 there is an increase to 7 mm from the previous [address] with new petechial hemorrhages. Neurosurgery was consulted and ultimately required a decompressive hemicraniectomy on August 22. He continued to have increased bleeding prompting aspirin to be held on August 25. Patient was transferred from the ICU to neurology general floor on August 27. MRI brain on August 30 showed evolving large right MCA infarct with hemorrhagic transformation. Stable appearing midline shift. Hematoma superficial to craniotomy in the right temporalis muscle. On 08/30 he underwent Ultrasound Doppler venous left upper extremity showed a nonocclusive deep vein thrombosis in the left axillary vein and a thrombus within the superficial basilic vein. Ultrasound Doppler venous left lower extremity showed chronic DVT of the left common femoral vein on 09/04 for which an IVC filter was placed on September 06. PEG was placed on September 10 due to poor oral intake and dysphasia. EKG and telemetry monitoring showed paroxysmal atrial fibrillation. TTE showed an ejection fraction of 50 to 55% with severely dilated left atrium and impaired left ventricle relaxation. Patient was tolerating a bolus tube feed diet of Nutren 1.5 max of 5 cans/day with free water flushes 100 mils before and after each feed if the patient ate less than 25% bolus 2 cans, 50% bolus 1 can, greater than 50% no bolus. Stroke labs at outside hospital A1c 7.1, TSH 1.375, total cholesterol 198, LDL 132, RPR nonreactive, INR 1.1. Patient was transition to Eliquis as a secondary stroke prevention and anticoagulation for atrial fibrillation. He was taken off of aspirin due to risk of bleeding prior to leaving the hospital and going to the longterm facility. The physicians at the hospital also made recommendation for considering a watchman device as an outpatient. 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 After the patient was stabilized he was transferred to subacute rehabilitation. Family visited our inpatient rehabilitation and was unhappy with his lack of progress at subacute and noted that he has been participating more with therapy but do not feel like he is getting the amount of therapy that he could truly benefit from. After discussion with the family as well as the facility and review of the past we opted to accept the patient to give him an opportunity to participate in a more intensive therapy schedule. Several discussions had with family on final disposition and ensuring that he would be going home regardless of how much recovery we were able to make. Patient was transferred to us from a subacute rehab where he has been since September 20. After the patient was medically stabilized they were transferred for further rehabilitation. All available medical records have been reviewed. Plan of care, prognosis, expectations, secondary stroke prevention, discharge planning was discussed with patient and family (2 daughters). Day prior to admission 48 minutes were spent reviewing all available records from the outside hospital as well as the longterm facility in preparation for transfer of the patient to acute inpatient rehabilitation. Interval history: Patient is participating in therapy and making slow progress. Taking rest breaks as needed. +BM. Afebrile. Denies palpitations, dyspnea, cough. Denies nausea vomiting this morning. Patient has variable interaction and responses to therapy from day-to-day. Family should be coming for family training, this will be complicated due to the restrictions on visitors currently. Will need them here as much as possible in order to ensure that they understand how to provide proper care for Mr. Condon at home. CVA: Patient making progress with therapy. Continue to monitor for worsening neurologic function. Continue secondary stroke prevention. No change in hemiplegia, no spasticity, no change in dysphagia. Left shoulder sublux: Pain better since starting Lidoderm, monitor. Discussed again that he needs to keep it supported. Poor carryover Hemicraniectomy: Sunken, helmet on when out of bed, well-healed continue to monitor Constipation: Continue bowel meds and monitor for improvement. Paroxysmal atrial fibrillation: Denies palpitations, rate controlled, tolerating anticoagulation. Continue to monitor Hypertension: Blood pressures been in a good range. Continue to monitor Diabetes: Glucose checks have been reasonable. Continue to monitor and adjust insulin as needed based on oral intake. Anemia: Hemoglobin level has normalized, however he is still microcytic. Nutrition: Oral intake is variable. Utilizing PEG tube for nutritional supplementation if less than 50% of meal eaten. We will continue to monitor and continue appetite stimulant. Cognition: Continue amantadine and monitor for improvement. Patient seems alert and interactive today. All records, vitals, labs and medications were reviewed. No other issues per patient, nursing or therapy. Objective - Exam Narrative Exam: MUSCULOSKELETAL SPECIALTY EXAM CONSTITUTIONAL: Well developed, well nourished, appropriately groomed. LEFT hand dominant. Head: Right craniectomy site sunken , soft RESPIRATORY: Clear to auscultation bilaterally, no increased work of breathing CARDIOVASCULAR: Regular Rate/ Rhythm, no swelling, edema or tenderness in BUE or BLE. All extremities warm. GI: + bowel sounds, soft, NTTP, nondistended. PEG tube present INTEGUMENTARY: Normal, no lesion, rash, masses or bruising noted in extremities. MUSCULOSKELETAL: Left shoulder subluxation, otherwise BUE and BLE normal without defect, crepitus, subluxation, effusion, arthritic changes or TTP. R 4+/5 L 0/5 ROM decreased on left, normal on right Tone flaccid on left, normal on right NEURO: CN II : Right visual colmenares full to confrontation, left blind CN III, IV, : EOMI on the right but right eye does preferentially veer towards the lateral aspect CN V : Facial sensation intact decreased on left CN VII : Slight left facial droop CN XI : Left shoulder shrug absent Sensation impaired on left with extinction, normal on right No tremor noted in 4 extremities. Naming and repetition intact. Follows 2 step commands. Aphasia not appreciated Dysarthria not appreciated Dysphagia present Neglect to left side with activity, right gaze preference. Does recognize the left and address it, just can not attend to it. POSTURE and GAIT: Sitting posture improving. Gait deferred. Sitting balance improving, starting to perform transfers with setup, able to stand with assistance for short period of time. PSYCH: Drowsy, oriented x3, affect appears flattened. Insight appears mostly intact. - Constitutional Vitals: Vital Signs - 12hr 10/27/19 10/28/19 10/28/19 22:00 05:19 07:22 Temperature 97.3 F L 98.0 F Pulse Rate 65 72 Respiratory 16 18 Rate Respiratory 18 Rate [Left knee ] Blood Pressure 143/69 160/83 O2 Sat by Pulse 97 97 Oximetry 10/28/19 08:40 Temperature Pulse Rate 72 Respiratory Rate Respiratory Rate [Left knee ] Blood Pressure 160/83 O2 Sat by Pulse Oximetry - Allied health notes Allied health notes reviewed: nursing, PT, ST, OT FIMS assessment as documented by PT/OT/ST: Social interaction/Memory/Problem solving Social Interaction FIM Score 5. Supervision (Needs supv. <10%. Needs encouragement to participate.) Memory FIM Score 4. Minimal Assistance (Recognizes and remembers 75-90%.) Problem Solving FIM Score 4. Minimal Assistance (Solves routine problems 75-90%.) Transfers Mode of Locomotion: Wheelchair Bed/Chair/Wheelchair Transfers 3. Moderate Assistance (Patient = 50% or more. 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 Maximal Assistance (Patient = 25% or more) Dressing-lower body Patient retrieves clothing No items: Patient applies/removes LE No prosthesis or orthosis: Lower Body Dressing FIM Score 2. Maximal Assistance (Patient = 25% or more) - Labs CBC & Chem 7: 10/28/19 07:42 10/28/19 07:42 Labs: Laboratory Results - last 72 hr 10/25/19 10/25/19 10/25/19 11:15 16:19 22:23 WBC RBC Hgb Hct MCV MCH MCHC RDW Plt Count Sodium Potassium Chloride Carbon Dioxide Anion Gap BUN Creatinine Estimated GFR BUN/Creatinine Ratio Glucose POC Glucose 190 H 170 H 175 H Calcium 10/26/19 10/26/19 10/26/19 07:49 11:25 16:09 WBC RBC Hgb Hct MCV MCH MCHC RDW Plt Count Sodium Potassium Chloride Carbon Dioxide Anion Gap BUN Creatinine Estimated GFR BUN/Creatinine Ratio Glucose POC Glucose 105 175 H 117 H Calcium 10/26/19 10/27/19 10/27/19 22:38 05:33 07:44 WBC RBC Hgb Hct MCV MCH MCHC RDW Plt Count Sodium Potassium Chloride Carbon Dioxide Anion Gap BUN Creatinine Estimated GFR BUN/Creatinine Ratio Glucose POC Glucose 236 H 101 120 H Calcium 10/27/19 10/27/19 10/27/19 11:39 16:29 22:51 WBC RBC Hgb Hct MCV MCH MCHC RDW Plt Count Sodium Potassium Chloride Carbon Dioxide Anion Gap BUN Creatinine Estimated GFR BUN/Creatinine Ratio Glucose POC Glucose 238 H 256 H 173 H Calcium 10/28/19 10/28/19 10/28/19 07:34 07:42 07:42 WBC 6.3 RBC 4.85 Hgb 12.0 Hct 36.8 MCV 76 L MCH 25 L MCHC 33 RDW 16.5 H Plt Count 154 Sodium 136 L Potassium 4.0 Chloride 98.5 Carbon Dioxide 24 Anion Gap 18 BUN 16 Creatinine 1.0 Estimated GFR > 60 BUN/Creatinine Ratio 16 Glucose 156 H POC Glucose 157 H Calcium 9.5 Assessment and Plan CVA, MCA, embolic with hemorrhagic conversion left dominant hemiplegia: Flaccid left side. Continue secondary stroke prevention (antithrombotic, statin (goal LDLC <70), BP control (goal less than 140/90), GLU control (goal A1c <7), and lifestyle modification). Monitor for recurrent stroke or post-stroke recrudescence. Continue neuromotor therapy as above. Family training when available. Monitor for post-stroke depression, cognitive deficits, seizure, dysphagia, aphasia, shoulder-hand syndrome, sensory deficits, spasticity, bowel/bladder deficits, sleep disturbance, vision deficits, pressure sores and DVT. Prognosis for recovery and secondary stroke prevention discussed with patient and family. Follow-up with neurology. No driving until cleared by neurologist. Paroxysmal atrial fibrillation: Continue rate control and anticoagulation. Adjust medications as needed. Monitor for palpitations, dyspnea, lightheadedness, chest pain, fatigue. EKG as needed. Diastolic dysfunction: Monitor for any exacerbation of diastolic dysfunction. Hypertension: Continue medications. Monitor blood pressure every 4 hours while awake. Adjust medications as needed for normotension and hold for hypotension. Diabetes type 2: Continue current diet. Monitor blood glucose before meals and at bedtime. Sliding scale insulin. Adjust medications as needed for normoglycemia. Skin checks per nursing to identify any new wounds. Left upper extremity and left lower extremity DVT: Continue Eliquis. Monitor for any signs of worsening condition. Patient does have a IVC filter installed as well. Dysphagia: Medications and supplemental feeds through PEG. Continue current diet. HEAD OF SCIENCE to monitor and advance diet as able, and perform FEES, MBSS or e-stim as needed. Shoulder subluxation: Continue strengthening exercises for improvement of shoulder subluxation. Arm tray while in wheelchair. Prop the arm on pillows including hand for elevation while in bed. Consider kinesiotaping and/or e- stim. Lidoderm Anemia: Microcytic. Replace iron, folate, vitamin C. monitor. Hemoglobin has recovered however still very microcytic Cognition: Continue amantadine at breakfast as well as lunch. Patient was previ ously getting this every 12 hours we should see a little bit better tolerance for it scheduled appropriately. Monitor for improvement. Supportive care and therapy. Family involvement as available. Continue reminders throughout therapy and the day to ensure patient safety. Altered sensation on the left: Monitor for skin wounds. Improve patient's ability to self monitor placement of limbs to avoid injury. Medication as needed for painful paresthesias. Poor nutritional intake: Check nutrition labs including pre-albumin (0.211 slightly better than normal). Monitor oral intake and weights. Patient is on appetite stimulant, continue Remeron. TF for <50% eaten. Right craniectomy: Currently sunken with very slight CSF collection at the base of the craniectomy. Monitor for any changes in volume and notified neurosurgeon if this occurs. Helmet on anytime out of bed. When out of bed with helmet on need to monitor periodically for swelling. ADL dysfunction: OT will work on improving ability to perform ADLs (including assistive devices) to increase independence and decrease caregiver burden and improve functional transfers and mobility training. Difficulty walking: PT will work on gait training and proper use of assistive devices and advance as appropriate to use of stairs and outside ambulation on uneven surfaces. Unsteadiness on feet: PT will work on improving static and dynamic sitting and standing balance as well as proper use of assistive devices to decrease risk of falls. Abnormality of gait: PT will work to improve safety and efficiency of gait through neuromotor training and gait training along with instruction on proper use of assistive devices. Muscle weakness: PT & OT will work on strengthening exercises to improve functional strength including mixture of closed and open kinetic chain exercises. Debility: PT & OT will work on improving overall functional status to improve participation with ADLs, mobility and social involvement. Fatigue: PT & OT will work on improving endurance through aerobic exercises and therapeutic activity while monitoring patients tolerance for activity and vital signs as needed. DVT ppx: Eliquis for atrial fibrillation Pain: Continue physical modalities in therapy and pain medications as needed to achieve functional pain control. Sleep: Monitor and address as needed. Melatonin Bowel: Monitor and address as needed. Increased medications, scheduled. Continue to monitor Appetite: Monitor and address as needed. Mirtazapine Discharge planning: Pending therapy progress and care plan meeting. Will continue discussion with therapy team, SW, patient and family. Restrictions/ Precautions: Falls, craniectomy (helmet on when out of bed), low bed, decreased sensation on left WB status: FWB Functional Hx: ADLs: Independent Cognition: Independent Mobility: No AD Working on having the family come in for family training. Family is adamant that they are not sending him back to a long term which is where he came to us from. Making some improvement with transfers, hopeful for ability to continue making improvement. Will discuss tomorrow. Working with the family we hope to reduce the level of caregiver burden and to educate them on how to safely provide care for Mr. Condon as he transitions back home. They will need all medical equipment including Ana lift, wheelchair, and a hospital bed (may change based on clinical pictures). Will discuss with the family when they arrive so that we can make the appropriate orders and not duplicate any materials that they currently have at home. Barriers to Discharge: Decreased mobility and ability to perform self care, balance deficits, weakness, craniectomy, left dominant hemiplegia, dysphagia Estimated Length of Stay: 1421 days Discharge Destination: Home with family
[2019-10-28] MEDS: traMADol 50 MG TAB FEEDTUBE PRN (17:52)
[2019-10-28] MEDS: SENNOSIDES 8.6 MG TAB PO SCH (21:50)
[2019-10-28] MEDS: MELATONIN 5 MG TAB PO SCH (21:50)
[2019-10-28] MEDS: MIRTAZAPINE 15 MG TAB FEEDTUBE SCH (21:58)
[2019-10-28] MEDS: INSULIN GLARGINE 100 UNITS/ML SUB-Q SCH (21:58)
[2019-10-29] MEDS: INSULIN LISPRO 100 UNIT/ML SUB-Q SCH ×4 (08:43→21:48)
[2019-10-29] MEDS: FERROUS SULFATE 325 MG TAB PO SCH ×2 (08:47→21:31)
[2019-10-29] MEDS: AMANTADINE FEEDTUBE SCH ×2 (08:47→16:48)
[2019-10-29] MEDS: LISINOPRIL 40 MG TAB FEEDTUBE SCH (08:48)
[2019-10-29] MEDS: amLODIPine 10 MG TAB FEEDTUBE SCH (08:48)
[2019-10-29] MEDS: carvediloL 6.25 MG TAB FEEDTUBE SCH ×2 (08:48→21:31)
[2019-10-29] MEDS: ASCORBIC ACID 500 MG TAB PO SCH ×2 (08:48→21:31)
[2019-10-29] MEDS: FOLIC ACID 1 MG TAB PO SCH (08:48)
[2019-10-29] MEDS: APIXABAN 5 MG TAB FEEDTUBE SCH ×3 (08:48→21:31)
[2019-10-29] MEDS: FAMOTIDINE 20 MG TAB FEEDTUBE SCH ×2 (08:48→21:31)
[2019-10-29] MEDS: hydrALAZINE 100 MG TAB FEEDTUBE SCH ×3 (08:49→21:32)
[2019-10-29] MEDS: POLYETHYLENE GLYCOL 3350 17 GM POWDER FEEDTUBE SCH (08:49)
[2019-10-29] MEDS: LIDOCAINE 5% 1 EACH PATCH TD SCH (08:49)
--- NOTE | 2019-10-29 09:25 | Progress Note ---
Subjective Date of service: 10/29/19 Principal diagnosis: CVA Interval history: 64-year-old male who presented to [facility] on August 11 with acute onset of left-sided weakness. 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 Alteplase was given on 08/11. He developed delayed cerebral edema and hemorrhagic conversion. CT head showed large right-sided MCA territory infarct with scattered hyperdensities and cerebral edema with midline shift on August 13. August 15 there is an increase to 7 mm from the previous [address] with new petechial hemorrhages. Neurosurgery was consulted and ultimately required a decompressive hemicraniectomy on August 22. He continued to have increased bleeding prompting aspirin to be held on August 25. Patient was transferred from the ICU to neurology general floor on August 27. MRI brain on August 30 showed evolving large right MCA infarct with hemorrhagic transformation. Stable appearing midline shift. Hematoma superficial to craniotomy in the right temporalis muscle. On 08/30 he underwent Ultrasound Doppler venous left upper extremity showed a nonocclusive deep vein thrombosis in the left axillary vein and a thrombus within the superficial basilic vein. Ultrasound Doppler venous left lower extremity showed chronic DVT of the left common femoral vein on 09/04 for which an IVC filter was placed on September 06. PEG was placed on September 10 due to poor oral intake and dysphasia. EKG and telemetry monitoring showed paroxysmal atrial fibrillation. TTE showed an ejection fraction of 50 to 55% with severely dilated left atrium and impaired left ventricle relaxation. Patient was tolerating a bolus tube feed diet of Nutren 1.5 max of 5 cans/day with free water flushes 100 mils before and after each feed if the patient ate less than 25% bolus 2 cans, 50% bolus 1 can, greater than 50% no bolus. Stroke labs at outside hospital A1c 7.1, TSH 1.375, total cholesterol 198, LDL 132, RPR nonreactive, INR 1.1. Patient was transition to Eliquis as a secondary stroke prevention and anticoagulation for atrial fibrillation. He was taken off of aspirin due to risk of bleeding prior to leaving the hospital and going to the prison facility. The physicians at the hospital also made recommendation for considering a watchman device as an outpatient. 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 After the patient was stabilized he was transferred to subacute rehabilitation. Family visited our inpatient rehabilitation and was unhappy with his lack of progress at subacute and noted that he has been participating more with therapy but do not feel like he is getting the amount of therapy that he could truly benefit from. After discussion with the family as well as the facility and review of the past we opted to accept the patient to give him an opportunity to participate in a more intensive therapy schedule. Several discussions had with family on final disposition and ensuring that he would be going home regardless of how much recovery we were able to make. Patient was transferred to us from a subacute rehab where he has been since September 20. After the patient was medically stabilized they were transferred for further rehabilitation. All available medical records have been reviewed. Plan of care, prognosis, expectations, secondary stroke prevention, discharge planning was discussed with patient and family (2 daughters). Day prior to admission 48 minutes were spent reviewing all available records from the outside hospital as well as the prison facility in preparation for transfer of the patient to acute inpatient rehabilitation. Interval history: Patient is participating in therapy and making slow progress. Taking rest breaks as needed. +BM. Afebrile. Denies palpitations, dyspnea, cough. Denies nausea vomiting this morning. Patient has variable interaction and responses to therapy from day-to-day. Family should be coming for family training, this will be complicated due to the restrictions on visitors currently. Will need them here as much as possible in order to ensure that they understand how to provide proper care for Mr. Condon at home. CVA: Patient making progress with therapy. Although his progress has been slow, he is improving in his ability to perform transfers and some ADLs and is now at the mod assist level typically but does have variability as stated above from day-to-day. His time on rehab has been productive to this point and we will need to get family in for family training. Having difficulty contacting them for making this happen. We will continue to work on that. If we are unable to contact them we may be forced to discharge him to a prison facility. Continue to monitor for worsening neurologic function. Continue secondary stroke prevention. No change in hemiplegia, no spasticity, no change in dysphagia. Left shoulder sublux: Pain better since starting Lidoderm, monitor. Discussed again that he needs to keep it supported. Poor carryover Hemicraniectomy: Sunken, helmet on when out of bed, well-healed continue to monitor Constipation: Continue bowel meds and monitor for improvement. Paroxysmal atrial fibrillation: Denies palpitations, rate controlled, tolerating anticoagulation. Continue to monitor Hypertension: Blood pressures been in a good range. Continue to monitor Diabetes: Glucose checks have been reasonable. Continue to monitor and adjust insulin as needed based on oral intake. Anemia: Hemoglobin level has normalized, however he is still microcytic. Nutrition: Oral intake is variable. Utilizing PEG tube for nutritional supplementation if less than 50% of meal eaten. We will continue to monitor and continue appetite stimulant.Patient does state that he is eating also states that he does not like hospital food. Have been supplementing as needed with tube feeds however he also does not want these. Cognition: Continue amantadine and monitor for improvement. Patient seems alert and interactive when I see him however often times he does seem more lethargic when therapy is attempting to work with him. All records, vitals, labs and medications were reviewed. No other issues per patient, nursing or therapy. Objective - Exam Narrative Exam: MUSCULOSKELETAL SPECIALTY EXAM CONSTITUTIONAL: Well developed, well nourished, appropriately groomed. LEFT hand dominant. Head: Right craniectomy site sunken , soft RESPIRATORY: Clear to auscultation bilaterally, no increased work of breathing CARDIOVASCULAR: Regular Rate/ Rhythm, no swelling, edema or tenderness in BUE or BLE. All extremities warm. GI: + bowel sounds, soft, NTTP, nondistended. PEG tube present INTEGUMENTARY: Normal, no lesion, rash, masses or bruising noted in extremities. MUSCULOSKELETAL: Left shoulder subluxation, otherwise BUE and BLE normal without defect, crepitus, subluxation, effusion, arthritic changes or TTP. R 4+/5 L 0/5 ROM decreased on left, normal on right Tone flaccid on left, normal on right NEURO: CN II : Right visual colmenares full to confrontation, left blind CN III, IV, : EOMI on the right but right eye does preferentially veer to wards the lateral aspect CN V : Facial sensation intact decreased on left CN VII : Slight left facial droop CN XI : Left shoulder shrug absent Sensation impaired on left with extinction, normal on right No tremor noted in 4 extremities. Naming and repetition intact. Follows 2 step commands. Aphasia not appreciated Dysarthria not appreciated Dysphagia present Neglect to left side with activity, right gaze preference. Does recognize the left and address it, just can not attend to it. POSTURE and GAIT: Sitting posture improving. Gait deferred. Sitting balance improving, starting to perform transfers with setup, able to stand with assistance for short period of time. PSYCH: Drowsy, oriented x3, affect appears flattened. Insight appears mostly intact. - Constitutional Vitals: Vital Signs - 12hr 10/28/19 10/29/19 10/29/19 21:50 04:56 07:55 Temperature 97.9 F 98.0 F Pulse Rate 63 61 63 Respiratory 20 18 Rate Blood Pressure 111/63 Blood Pressure 139/69 120/65 [Left] O2 Sat by Pulse 96 97 Oximetry - Allied health notes Allied health notes reviewed: nursing, PT, ST, OT FIMS assessment as documented by PT/OT/ST: Social interaction/Memory/Problem solving Social Interaction FIM Score 4. Minimal Assistance (Interacts appropriately 75-90%.) Memory FIM Score 5. Supervision (Needs cueing <10%, stressful/ unfamiliar situations.) Problem Solving FIM Score 4. Minimal Assistance (Solves routine problems 75-90%.) Transfers Mode of Locomotion: Wheelchair Bed/Chair/Wheelchair Transfers 3. Moderate Assistance (Patient = 50% or more. FIM Score Some lifting.) Eating Eating FIM Score 3. Moderate Assistance (Patient = 50% or more) Dressing-Upper body Upper Body Dressing Device Photoengraver Patient retrieves clothing No items: Patient applies/removes UE No prosthesis or orthosis: Upper Body Dressing FIM Score 2. Maximal Assistance (Patient = 25% or more) Dressing-lower body Patient retrieves clothing No items: Patient applies/removes LE No prosthesis or orthosis: Lower Body Dressing FIM Score 2. Maximal Assistance (Patient = 25% or more) - Labs CBC & Chem 7: 10/28/19 07:42 10/28/19 07:42 Labs: Laboratory Results - last 72 hr 10/26/19 10/26/19 10/26/19 11:25 16:09 22:38 WBC RBC Hgb Hct MCV MCH MCHC RDW Plt Count Sodium Potassium Chloride Carbon Dioxide Anion Gap BUN Creatinine Estimated GFR BUN/Creatinine Ratio Glucose POC Glucose 175 H 117 H 236 H Calcium 10/27/19 10/27/19 10/27/19 05:33 07:44 11:39 WBC RBC Hgb Hct MCV MCH MCHC RDW Plt Count Sodium Potassium Chloride Carbon Dioxide Anion Gap BUN Creatinine Estimated GFR BUN/Creatinine Ratio Glucose POC Glucose 101 120 H 238 H Calcium 10/27/19 10/27/19 10/28/19 16:29 22:51 07:34 WBC RBC Hgb Hct MCV MCH MCHC RDW Plt Count Sodium Potassium Chloride Carbon Dioxide Anion Gap BUN Creatinine Estimated GFR BUN/Creatinine Ratio Glucose POC Glucose 256 H 173 H 157 H Calcium 10/28/19 10/28/19 10/28/19 07:42 07:42 12:11 WBC 6.3 RBC 4.85 Hgb 12.0 Hct 36.8 MCV 76 L MCH 25 L MCHC 33 RDW 16.5 H Plt Count 154 Sodium 136 L Potassium 4.0 Chloride 98.5 Carbon Dioxide 24 Anion Gap 18 BUN 16 Creatinine 1.0 Estimated GFR > 60 BUN/Creatinine Ratio 16 Glucose 156 H POC Glucose 131 H Calcium 9.5 10/28/19 10/28/19 10/29/19 16:24 21:30 08:08 WBC RBC Hgb Hct MCV MCH MCHC RDW Plt Count Sodium Potassium Chloride Carbon Dioxide Anion Gap BUN Creatinine Estimated GFR BUN/Creatinine Ratio Glucose POC Glucose 188 H 142 H 127 H Calcium Assessment and Plan CVA, MCA, embolic with hemorrhagic conversion left dominant hemiplegia: Flaccid left side. Continue secondary stroke prevention (antithrombotic, statin (goal LDLC <70), BP control (goal less than 140/90), GLU control (goal A1c <7), and lifestyle modification). Monitor for recurrent stroke or post-stroke recrudescence. Continue neuromotor therapy as above. Family training when available. Monitor for post-stroke depression, cognitive deficits, seizure, dysphagia, aphasia, shoulder-hand syndrome, sensory deficits, spasticity, bowel/bladder deficits, sleep disturbance, vision deficits, pressure sores and DVT. Prognosis for recovery and secondary stroke prevention discussed with patient and family. Follow-up with neurology. No driving until cleared by neurologist. Paroxysmal atrial fibrillation: Continue rate control and anticoagulation. Adjust medications as needed. Monitor for palpitations, dyspnea, lightheadedness, chest pain, fatigue. EKG as needed. Diastolic dysfunction: Monitor for any exacerbation of diastolic dysfunction. Hypertension: Continue medications. Monitor blood pressure every 4 hours while awake. Adjust medications as needed for normotension and hold for hypotension. Diabetes type 2: Continue current diet. Monitor blood glucose before meals and at bedtime. Sliding scale insulin. Adjust medications as needed for normoglycemia. Skin checks per nursing to identify any new wounds. Left upper extremity and left lower extremity DVT: Continue Eliquis. Monitor for any signs of worsening condition. Patient does have a IVC filter installed as well. Dysphagia: Medications and supplemental feeds through PEG. Continue current diet. [employer] to monitor and advance diet as able, and perform FEES, MBSS or e-stim as needed. Shoulder subluxation: Continue strengthening exercises for improvement of shoulder subluxation. Arm tray while in wheelchair. Prop the arm on pillows including hand for elevation while in bed. Consider kinesiotaping and/or e- stim. Lidoderm Anemia: Microcytic. Replace iron, folate, vitamin C. monitor. Hemoglobin has recovered however still very microcytic Cognition: Continue amantadine at breakfast as well as lunch. Patient was previously getting this every 12 hours we should see a little bit better tolerance for it scheduled appropriately. Monitor for improvement. Supportive care and therapy. Family involvement as available. Continue reminders throughout therapy and the day to ensure patient safety. Altered sensation on the left: Monitor for skin wounds. Improve patient's ability to self monitor placement of limbs to avoid injury. Medication as needed for painful paresthesias. Poor nutritional intake: Check nutrition labs including pre-albumin (0.211 slightly better than normal). Monitor oral intake and weights. Patient is on appetite stimulant, continue Remeron. TF for <50% eaten. Right craniectomy: Currently sunken with very slight CSF collection at the base of the craniectomy. Monitor for any changes in volume and notified neurosurgeon if this occurs. Helmet on anytime out of bed. When out of bed with helmet on need to monitor periodically for swelling. ADL dysfunction: OT will work on improving ability to perform ADLs (including assistive devices) to increase independence and decrease caregiver burden and improve functional transfers and mobility training. Difficulty walking: PT will work on gait training and proper use of assistive devices and advance as appropriate to use of stairs and outside ambulation on uneven surfaces. Unsteadiness on feet: PT will work on improving static and dynamic sitting and standing balance as well as proper use of assistive devices to decrease risk of falls. Abnormality of gait: PT will work to improve safety and efficiency of gait through neuromotor training and gait training along with instruction on proper use of assistive devices. Muscle weakness: PT & OT will work on strengthening exercises to improve functional strength including mixture of closed and open kinetic chain exercises. Debility: PT & OT will work on improving overall functional status to improve participation with ADLs, mobility and social involvement. Fatigue: PT & OT will work on improving endurance through aerobic exercises and therapeutic activity while monitoring patients tolerance for activity and vital signs as needed. DVT ppx: Eliquis for atrial fibrillation Pain: Continue physical modalities in therapy and pain medications as needed to achieve functional pain control. Sleep: Monitor and address as needed. Melatonin Bowel: Monitor and address as needed. Increased medications, scheduled. Continue to monitor Appetite: Monitor and address as needed. Mirtazapine Discharge planning: Pending therapy progress and care plan meeting. Will continue discussion with therapy team, SW, patient and family. Restrictions/ Precautions: Falls, craniectomy (helmet on when out of bed), low bed, decreased sensation on left WB status: FWB Functional Hx: ADLs: Independent Cognition: Independent Mobility: No AD Working on having the family come in for family training. Family is adamant that they are not sending him back to a [facility]way which is where he came to us from. Making some improvement with transfers, hopeful for ability to continue making improvement. Will discuss tomorrow. Working with the family we hope to reduce the level of caregiver burden and to educate them on how to safely provide care for Mr. Condon as he transitions back home. They will need all medical equipment including Ana lift, wheelchair, and a hospital bed (may change based on clinical pictures). Will discuss with the family when they arrive so that we can make the appropriate orders and not duplicate any materials that they currently have at home. Barriers to Discharge: Decreased mobility and ability to perform self care, balance deficits, weakness, craniectomy, left dominant hemiplegia, dysphagia Estimated Length of Stay: 1421 days Discharge Destination: Home with family
[2019-10-29] MEDS: SENNOSIDES 8.6 MG TAB PO SCH (21:31)
[2019-10-29] MEDS: MIRTAZAPINE 15 MG TAB FEEDTUBE SCH (21:31)
[2019-10-29] MEDS: MELATONIN 5 MG TAB PO SCH (21:32)
[2019-10-29] MEDS: INSULIN GLARGINE 100 UNITS/ML SUB-Q SCH (21:48)
[2019-10-30] MEDS: POLYETHYLENE GLYCOL 3350 17 GM POWDER FEEDTUBE SCH (08:48)
[2019-10-30] MEDS: LIDOCAINE 5% 1 EACH PATCH TD SCH (08:48)
[2019-10-30] MEDS: FERROUS SULFATE 325 MG TAB PO SCH ×2 (08:48→22:06)
[2019-10-30] MEDS: FAMOTIDINE 20 MG TAB FEEDTUBE SCH ×2 (08:49→22:06)
[2019-10-30] MEDS: hydrALAZINE 100 MG TAB FEEDTUBE SCH ×3 (08:49→22:16)
[2019-10-30] MEDS: LISINOPRIL 40 MG TAB FEEDTUBE SCH (08:49)
[2019-10-30] MEDS: FOLIC ACID 1 MG TAB PO SCH (08:49)
[2019-10-30] MEDS: amLODIPine 10 MG TAB FEEDTUBE SCH (08:49)
[2019-10-30] MEDS: ASCORBIC ACID 500 MG TAB PO SCH ×2 (08:50→22:06)
[2019-10-30] MEDS: carvediloL 6.25 MG TAB FEEDTUBE SCH ×2 (08:50→22:16)
[2019-10-30] MEDS: AMANTADINE FEEDTUBE SCH ×2 (08:50→14:58)
[2019-10-30] MEDS: INSULIN LISPRO 100 UNIT/ML SUB-Q SCH ×4 (08:56→22:53)
[2019-10-30] MEDS: APIXABAN 5 MG TAB FEEDTUBE SCH ×2 (09:12→22:07)
[2019-10-30] MEDS: MIRTAZAPINE 15 MG TAB FEEDTUBE SCH (22:06)
[2019-10-30] MEDS: MELATONIN 5 MG TAB PO SCH (22:07)
[2019-10-30] MEDS: SENNOSIDES 8.6 MG TAB PO SCH (22:08)
[2019-10-30] MEDS: INSULIN GLARGINE 100 UNITS/ML SUB-Q SCH (22:10)
[2019-10-31] MEDS: FAMOTIDINE 20 MG TAB FEEDTUBE SCH ×2 (08:27→22:17)
[2019-10-31] MEDS: FERROUS SULFATE 325 MG TAB PO SCH ×2 (08:27→22:16)
[2019-10-31] MEDS: FOLIC ACID 1 MG TAB PO SCH (08:27)
[2019-10-31] MEDS: LIDOCAINE 5% 1 EACH PATCH TD SCH (08:27)
[2019-10-31] MEDS: carvediloL 6.25 MG TAB FEEDTUBE SCH ×2 (08:28→22:24)
[2019-10-31] MEDS: ASCORBIC ACID 500 MG TAB PO SCH ×2 (08:28→22:17)
[2019-10-31] MEDS: AMANTADINE FEEDTUBE SCH ×2 (08:28→13:36)
[2019-10-31] MEDS: APIXABAN 5 MG TAB FEEDTUBE SCH ×3 (08:28→22:17)
[2019-10-31] MEDS: amLODIPine 10 MG TAB FEEDTUBE SCH (08:28)
[2019-10-31] MEDS: LISINOPRIL 40 MG TAB FEEDTUBE SCH (08:28)
[2019-10-31] MEDS: hydrALAZINE 100 MG TAB FEEDTUBE SCH ×3 (08:28→22:16)
[2019-10-31] MEDS: INSULIN LISPRO 100 UNIT/ML SUB-Q SCH ×4 (08:28→22:19)
[2019-10-31] MEDS: POLYETHYLENE GLYCOL 3350 17 GM POWDER FEEDTUBE SCH (08:29)
--- NOTE | 2019-10-31 09:42 | Progress Note ---
Subjective Date of service: 10/30/19 Principal diagnosis: CVA Interval history: 64-year-old male who presented to [facility] on August 11 with acute onset of left-sided weakness. 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 Alteplase was given on 08/11. He developed delayed cerebral edema and hemorrhagic conversion. CT head showed large right-sided MCA territory infarct with scattered hyperdensities and cerebral edema with midline shift on August 13. August 15 there is an increase to 7 mm from the previous [address] with new petechial hemorrhages. Neurosurgery was consulted and ultimately required a decompressive hemicraniectomy on August 22. He continued to have increased bleeding prompting aspirin to be held on August 25. Patient was transferred from the ICU to neurology general floor on August 27. MRI brain on August 30 showed evolving large right MCA infarct with hemorrhagic transformation. Stable appearing midline shift. Hematoma superficial to craniotomy in the right temporalis muscle. On 08/30 he underwent Ultrasound Doppler venous left upper extremity showed a nonocclusive deep vein thrombosis in the left axillary vein and a thrombus within the superficial basilic vein. Ultrasound Doppler venous left lower extremity showed chronic DVT of the left common femoral vein on 09/04 for which an IVC filter was placed on September 06. PEG was placed on September 10 due to poor oral intake and dysphasia. EKG and telemetry monitoring showed paroxysmal atrial fibrillation. TTE showed an ejection fraction of 50 to 55% with severely dilated left atrium and impaired left ventricle relaxation. Patient was tolerating a bolus tube feed diet of Nutren 1.5 max of 5 cans/day with free water flushes 100 mils before and after each feed if the patient ate less than 25% bolus 2 cans, 50% bolus 1 can, greater than 50% no bolus. Stroke labs at outside hospital A1c 7.1, TSH 1.375, total cholesterol 198, LDL 132, RPR nonreactive, INR 1.1. Patient was transition to Eliquis as a secondary stroke prevention and anticoagulation for atrial fibrillation. He was taken off of aspirin due to risk of bleeding prior to leaving the hospital and going to the care home facility. The physicians at the hospital also made recommendation for considering a watchman device as an outpatient. 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 After the patient was stabilized he was transferred to subacute rehabilitation. Family visited our inpatient rehabilitation and was unhappy with his lack of progress at subacute and noted that he has been participating more with therapy but do not feel like he is getting the amount of therapy that he could truly benefit from. After discussion with the family as well as the facility and review of the past we opted to accept the patient to give him an opportunity to participate in a more intensive therapy schedule. Several discussions had with family on final disposition and ensuring that he would be going home regardless of how much recovery we were able to make. Patient was transferred to us from a subacute rehab where he has been since September 20. After the patient was medically stabilized they were transferred for further rehabilitation. All available medical records have been reviewed. Plan of care, prognosis, expectations, secondary stroke prevention, discharge planning was discussed with patient and family (2 daughters). Day prior to admission 48 minutes were spent reviewing all available records from the outside hospital as well as the care home facility in preparation for transfer of the patient to acute inpatient rehabilitation. Interval history: Patient is participating in therapy and making slow progress. Taking rest breaks as needed. +BM. Afebrile. Denies palpitations, dyspnea, cough. Slight nausea this morning, but denies vomiting. Patient has variable interaction and responses to therapy from day-to-day. Family should be coming for family training, this will be complicated due to the restrictions on visitors currently. Will need them here as much as possible in order to ensure that they understand how to provide proper care for Mr. Condon at home. CVA: Patient making progress with therapy. Although his progress has been slow, he is improving in his ability to perform transfers and some ADLs and is now at the mod assist level typically but does have variability as stated above from day-to-day. His time on rehab has been productive to this point and we will need to get family in for family training. Having difficulty contacting them for making this happen. We will continue to work on that. If we are unable to contact them we may be forced to discharge him to a care home facility. Continue to monitor for worsening neurologic function. Continue secondary stroke prevention. No change in hemiplegia, no spasticity, no change in dysphagia. Left shoulder sublux: Pain better since starting Lidoderm, monitor. Discussed again that he needs to keep it supported. Poor carryover Hemicraniectomy: Sunken, helmet on when out of bed, well-healed continue to monitor, will need to follow-up with neurosurgeon at discharge. Constipation: Continue bowel meds and monitor for improvement. Paroxysmal atrial fibrillation: Denies palpitations, rate controlled, tolerating anticoagulation. Continue to monitor Hypertension: Blood pressures been in a good range. Continue to monitor Diabetes: Glucose checks have been reasonable. Continue to monitor and adjust insulin as needed based on oral intake. Anemia: Hemoglobin level has normalized, however he is still microcytic. Nutrition: Oral intake is variable. Utilizing PEG tube for nutritional supplementation if less than 50% of meal eaten. We will continue to monitor and continue appetite stimulant.Patient does state that he is eating also states that he does not like hospital food. Have been supplementing as needed with tube feeds however he also does not want these. Cognition: Continue amantadine and monitor for improvement. Patient seems alert and interactive when I see him however often times he does seem more lethargic when therapy is attempting to work with him. All records, vitals, labs and medications were reviewed. No other issues per patient, nursing or therapy. Objective - Exam Narrative Exam: MUSCULOSKELETAL SPECIALTY EXAM CONSTITUTIONAL: Well developed, well nourished, appropriately groomed. LEFT hand dominant. Head: Right craniectomy site sunken , soft RESPIRATORY: Clear to auscultation bilaterally, no increased work of breathing CARDIOVASCULAR: Regular Rate/ Rhythm, no swelling, edema or tenderness in BUE or BLE. All extremities warm. GI: + bowel sounds, soft, NTTP, nondistended. PEG tube present INTEGUMENTARY: Normal, no lesion, rash, masses or bruising noted in extremities. MUSCULOSKELETAL: Left shoulder subluxation, otherwise BUE and BLE normal without defect, crepitus, subluxation, effusion, arthritic changes or TTP. R 4+/5 L 0/5 ROM decreased on left, normal on right Tone flaccid on left, normal on right NEURO: CN II : Right visual colmenares full to confrontation, left blind CN III, IV, : EOMI on the right but right eye does preferentially veer towards the lateral aspect CN V : Facial sensation intact decreased on left CN VII : Slight left facial droop CN XI : Left shoulder shrug absent Sensation impaired on left with extinction, normal on right No tremor noted in 4 extremities. Naming and repetition intact. Follows 2 step commands. Aphasia not appreciated Dysarthria not appreciated Dysphagia present Neglect to left side with activity, right gaze preference. Does recognize the left and address it, just can not attend to it. POSTURE and GAIT: Sitting posture improving. Gait deferred. Sitting balance improving but he still has periods of pushing. Starting to perform transfers with setup, able to stand with assistance for short period of time. Overall, improved but inconsistent. PSYCH: Drowsy, oriented x3, affect appears flattened. Insight appears mostly intact. - Constitutional Vitals: Vital Signs - 12hr 10/30/19 10/31/19 10/31/19 22:16 06:11 06:14 Temperature 98.9 F Pulse Rate 62 65 Respiratory 18 18 Rate Blood Pressure 151/75 Blood Pressure [Left] O2 Sat by Pulse 97 95 Oximetry 10/31/19 10/31/19 07:53 08:28 Temperature 98.1 F Pulse Rate 66 66 Respiratory 18 Rate Blood Pressure 156/79 Blood Pressure 156/79 [Left] O2 Sat by Pulse 97 Oximetry - Allied health notes Allied health notes reviewed: nursing, PT, ST, OT FIMS assessment as documented by PT/OT/ST: Social interaction/Memory/Problem solving Social Interaction FIM Score 3. Moderate Assistance (Interacts appropriately 50-74%.) Memory FIM Score 3. Moderate Assistance (Recognizes and remembers 50-74%.) Problem Solving FIM Score 3. Moderate Assistance (Solves routine problems 50-74%.) Transfers Mode of Locomotion: Wheelchair Bed/Chair/Wheelchair Transfers 2. Maximal Assistance (Patient = 25% or more) FIM Score Eating Eating FIM Score 3. Moderate Assistance (Patient = 50% or more) Dressing-Upper body Upper Body Dressing Device Associate Loan Officer Patient retrieves clothing No items: Patient applies/removes UE No prosthesis or orthosis: Upper Body Dressing FIM Score 2. Maximal Assistance (Patient = 25% or more) Dressing-lower body Patient retrieves clothing No items: Patient applies/removes LE No prosthesis or orthosis: Lower Body Dressing FIM Score 2. Maximal Assistance (Patient = 25% or more) - Labs CBC & Chem 7: 10/28/19 07:42 10/28/19 07:42 Labs: Laboratory Results - last 72 hr 10/28/19 10/28/19 10/28/19 12:11 16:24 21:30 POC Glucose 131 H 188 H 142 H 10/29/19 10/29/19 10/29/19 08:08 11:54 16:15 POC Glucose 127 H 167 H 149 H 10/29/19 10/30/19 10/30/19 21:04 07:46 11:34 POC Glucose 153 H 133 H 188 H 10/30/19 10/30/19 10/31/19 16:23 21:32 07:20 POC Glucose 197 H 87 109 H Assessment and Plan CVA, MCA, embolic with hemorrhagic conversion left dominant hemiplegia: Flaccid left side. Continue secondary stroke prevention (antithrombotic, statin (goal LDLC <70), BP control (goal less than 140/90), GLU control (goal A1c <7), and lifestyle mod ification). Monitor for recurrent stroke or post-stroke recrudescence. Continue neuromotor therapy as above. Family training when available. Monitor for post-stroke depression, cognitive deficits, seizure, dysphagia, aphasia, shoulder-hand syndrome, sensory deficits, spasticity, bowel/bladder deficits, sleep disturbance, vision deficits, pressure sores and DVT. Prognosis for recovery and secondary stroke prevention discussed with patient and family. Follow-up with neurology. No driving until cleared by neurologist. Paroxysmal atrial fibrillation: Continue rate control and anticoagulation. Adjust medications as needed. Monitor for palpitations, dyspnea, lightheadedness, chest pain, fatigue. EKG as needed. Diastolic dysfunction: Monitor for any exacerbation of diastolic dysfunction. Hypertension: Continue medications. Monitor blood pressure every 4 hours while awake. Adjust medications as needed for normotension and hold for hypotension. Diabetes type 2: Continue current diet. Monitor blood glucose before meals and at bedtime. Sliding scale insulin. Adjust medications as needed for normoglycemia. Skin checks per nursing to identify any new wounds. Left upper extremity and left lower extremity DVT: Continue Eliquis. Monitor for any signs of worsening condition. Patient does have a IVC filter installed as well. Dysphagia: Medications and supplemental feeds through PEG. Continue current diet (dysphasia mechanical softchopped with regular thin liquids.). CAN FILLING AND CLOSING MACHINE TENDER to monitor and advance diet as able, and perform FEES, MBSS or e-stim as needed. Shoulder subluxation: Continue strengthening exercises for improvement of shoulder subluxation. Arm tray while in wheelchair. Prop the arm on pillows including hand for elevation while in bed. Consider kinesiotaping and/or e- stim. Lidoderm Anemia: Microcytic. Replace iron, folate, vitamin C. monitor. Hemoglobin has recovered however still very microcytic Cognition: Continue amantadine at breakfast as well as lunch. Patient was previously getting this every 12 hours we should see a little bit better t renate for it scheduled appropriately. Monitor for improvement. Supportive care and therapy. Family involvement as available. Continue reminders throughout therapy and the day to ensure patient safety. Altered sensation on the left: Monitor for skin wounds. Improve patient's ability to self monitor placement of limbs to avoid injury. Medication as needed for painful paresthesias. Poor nutritional intake: Check nutrition labs including pre-albumin (0.211 slightly better than normal). Monitor oral intake and weights. Patient is on appetite stimulant, continue Remeron. TF for <50% eaten. Right craniectomy: Currently sunken with very slight CSF collection at the base of the craniectomy. Monitor for any changes in volume and notified neurosurgeon if this occurs. Helmet on anytime out of bed. When out of bed with helmet on need to monitor periodically for swelling. ADL dysfunction: OT will work on improving ability to perform ADLs (including assistive devices) to increase independence and decrease caregiver burden and improve functional transfers and mobility training. Difficulty walking: PT will work on gait training and proper use of assistive devices and advance as appropriate to use of stairs and outside ambulation on uneven surfaces. Unsteadiness on feet: PT will work on improving static and dynamic sitting and standing balance as well as proper use of assistive devices to decrease risk of falls. Abnormality of gait: PT will work to improve safety and efficiency of gait through neuromotor training and gait training along with instruction on proper use of assistive devices. Muscle weakness: PT & OT will work on strengthening exercises to improve functi onal strength including mixture of closed and open kinetic chain exercises. Debility: PT & OT will work on improving overall functional status to improve participation with ADLs, mobility and social involvement. Fatigue: PT & OT will work on improving endurance through aerobic exercises and therapeutic activity while monitoring patients tolerance for activity and vital signs as needed. DVT ppx: Eliquis for atrial fibrillation Pain: Continue physical modalities in therapy and pain medications as needed to achieve functional pain control. Sleep: Monitor and address as needed. Melatonin Bowel: Monitor and address as needed. Increased medications, scheduled. Continue to monitor Appetite: Monitor and address as needed. Mirtazapine Discharge planning: Pending therapy progress and care plan meeting. Will continue discussion with therapy team, SW, patient and family. Restrictions/ Precautions: Falls, craniectomy (helmet on when out of bed), low bed, decreased sensation on left WB status: FWB Functional Hx: ADLs: Independent Cognition: Independent Mobility: No AD Working on having the family come in for family training. Family is adamant that they are not sending him back to a [facility]dc which is where he came to us from. Making some improvement with transfers, hopeful for ability to continue making improvement. Will discuss tomorrow. Working with the family we hope to reduce the level of caregiver burden and to educate them on how to safely provide care for Mr. Condon as he transitions back home. They will need all medical equipment including Ana lift, wheelchair, and a hospital bed (may change based on clinical pictures). Will discuss with the family when they arrive so that we can make the appropriate orders and not duplicate any materials that they currently have at home. Barriers to Discharge: Decreased mobility and ability to perform self care, balance deficits, weakness, craniectomy, left dominant hemiplegia, dysphagia Estimated Length of Stay: 1421 days Discharge Destination: Home with family
--- NOTE | 2019-10-31 11:47 | Progress Note ---
Subjective Date of service: 10/31/19 Principal diagnosis: CVA Interval history: 64-year-old male who presented to [facility] on August 11 with acute onset of left-sided weakness. 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 Alteplase was given on 08/11. He developed delayed cerebral edema and hemorrhagic conversion. CT head showed large right-sided MCA territory infarct with scattered hyperdensities and cerebral edema with midline shift on August 13. August 15 there is an increase to 7 mm from the previous [address] with new petechial hemorrhages. Neurosurgery was consulted and ultimately required a decompressive hemicraniectomy on August 22. He continued to have increased bleeding prompting aspirin to be held on August 25. Patient was transferred from the ICU to neurology general floor on August 27. MRI brain on August 30 showed evolving large right MCA infarct with hemorrhagic transformation. Stable appearing midline shift. Hematoma superficial to craniotomy in the right temporalis muscle. On 08/30 he underwent Ultrasound Doppler venous left upper extremity showed a nonocclusive deep vein thrombosis in the left axillary vein and a thrombus within the superficial basilic vein. Ultrasound Doppler venous left lower extremity showed chronic DVT of the left common femoral vein on 09/04 for which an IVC filter was placed on September 06. PEG was placed on September 10 due to poor oral intake and dysphasia. EKG and telemetry monitoring showed paroxysmal atrial fibrillation. TTE showed an ejection fraction of 50 to 55% with severely dilated left atrium and impaired left ventricle relaxation. Patient was tolerating a bolus tube feed diet of Nutren 1.5 max of 5 cans/day with free water flushes 100 mils before and after each feed if the patient ate less than 25% bolus 2 cans, 50% bolus 1 can, greater than 50% no bolus. Stroke labs at outside hospital A1c 7.1, TSH 1.375, total cholesterol 198, LDL 132, RPR nonreactive, INR 1.1. Patient was transition to Eliquis as a secondary stroke prevention and anticoagulation for atrial fibrillation. He was taken off of aspirin due to risk of bleeding prior to leaving the hospital and going to the nursing home facility. The physicians at the hospital also made recommendation for considering a watchman device as an outpatient. 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 After the patient was stabilized he was transferred to subacute rehabilitation. Family visited our inpatient rehabilitation and was unhappy with his lack of progress at subacute and noted that he has been participating more with therapy but do not feel like he is getting the amount of therapy that he could truly benefit from. After discussion with the family as well as the facility and review of the past we opted to accept the patient to give him an opportunity to participate in a more intensive therapy schedule. Several discussions had with family on final disposition and ensuring that he would be going home regardless of how much recovery we were able to make. Patient was transferred to us from a subacute rehab where he has been since September 20. After the patient was medically stabilized they were transferred for further rehabilitation. All available medical records have been reviewed. Plan of care, prognosis, expectations, secondary stroke prevention, discharge planning was discussed with patient and family (2 daughters). Day prior to admission 48 minutes were spent reviewing all available records from the outside hospital as well as the nursing home facility in preparation for transfer of the patient to acute inpatient rehabilitation. Interval history: Patient is participating in therapy and making slow progress. Taking rest breaks as needed. +BM. Afebrile. Denies palpitations, dyspnea, cough. No nausea/vomiting. Patient has variable interaction and responses to therapy from day-to-day. Family should be coming for family training, this will be complicated due to the restrictions on visitors currently. Will need them here as much as possible in order to ensure that they understand how to provide proper care for Mr. Condon at home. Was able to speak with 1 of the daughters this morning. Gave her an update on the patient as she requested. She did not seem to grasp the concept that this would likely be his functional level going forward. Was a little reluctant when it came to talking about family training to provide care for him. Found out later that vocational rehabilitation administrator has already spoken with other children and that they will be coming in on Monday for family training. CVA: Patient making progress with therapy. Although his progress has been slow, he is improving in his ability to perform transfers and some ADLs and is now at the mod assist level typically but does have variability as stated above from day-to-day. His time on rehab has been productive to this point and we will need to get family in for family training. Having difficulty contacting them for making this happen. We will continue to work on that. If we are unable to contact them we may be forced to discharge him to a nursing home facility. Continue to monitor for worsening neurologic function. Continue secondary stroke prevention. No change in hemiplegia, no spasticity, no change in dysphagia. Left shoulder sublux: Pain better since starting Lidoderm, monitor. Discussed again that he needs to keep it supported. Poor carryover Hemicraniectomy: Sunken, helmet on when out of bed, well-healed continue to monitor, will need to follow-up with neurosurgeon at discharge. Constipation: Continue bowel meds and monitor for improvement. Paroxysmal atrial fibrillation: Denies palpitations, rate controlled, tolerating anticoagulation. Continue to monitor Hypertension: Blood pressures been in a good range. Continue to monitor Diabetes: Glucose checks have been reasonable. Continue to monitor and adjust insulin as needed based on oral intake. Anemia: Hemoglobin level has normalized, however he is still microcytic. Nutrition: Oral intake is variable. Utilizing PEG tube for nutritional supplementation if less than 50% of meal eaten. We will continue to monitor and continue appetite stimulant.Patient does state that he is eating also states that he does not like hospital food. Have been supplementing as needed with tube feeds however he also does not want these. Cognition: Continue amantadine and monitor for improvement. Patient seems alert and interactive when I see him however often times he does seem more lethargic when therapy is attempting to work with him. All records, vitals, labs and medications were reviewed. No other issues per patient, nursing or therapy. Discussed during team conference. Patient has made progress since being on the rehab unit however we feel like we are reaching a plateau. Have been able to get in contact with family and they will be coming in for family training on Monday. Would have been preferable for them to be here throughout this time. So they could be as prepared as possible however with the COVID 19 issues in the community this has been difficult. We will continue to work to get him as improved as possible for discharge. Looking at discharge on Sunday 11/05. Patient will need a high back, reclining wheelchair, Ana lift, semi-electric bed. Objective - Exam Narrative Exam: MUSCULOSKELETAL SPECIALTY EXAM CONSTITUTIONAL: Well developed, well nourished, appropriately groomed. LEFT hand dominant. Head: Right craniectomy site sunken , soft RESPIRATORY: Clear to auscultation bilaterally, no increased work of breathing CARDIOVASCULAR: Regular Rate/ Rhythm, no swelling, edema or tenderness in BUE or BLE. All extremities warm. GI: + bowel sounds, soft, NTTP, nondistended. PEG tube present INTEGUMENTARY: Normal, no lesion, rash, masses or bruising noted in extremities. MUSCULOSKELETAL: Left shoulder subluxation, otherwise BUE and BLE normal without defect, crepitus, subluxation, effusion, arthritic changes or TTP. R 4+/5 L 0/5 ROM decreased on left, normal on right Tone flaccid on left, normal on right NEURO: CN II : Right visual colmenares full to confrontation, left blind CN III, IV, : EOMI on the right but right eye does preferentially veer towards the lateral aspect CN V : Facial sensation intact decreased on left CN VII : Slight left facial droop CN XI : Left shoulder shrug absent Sensation impaired on left with extinction, normal on right No tremor noted in 4 extremities. Naming and repetition intact. Follows 2 step commands. Aphasia not appreciated Dysarthria not appreciated Dysphagia present Neglect to left side with activity, right gaze preference. Does recognize the left and address it, just can not attend to it. POSTURE and GAIT: Sitting posture improving. Gait deferred. Sitting balance improving but he still has periods of pushing. Starting to perform transfers with setup, able to stand with assistance for short period of time. Overall, improved but inconsistent. PSYCH: Alert, oriented x3, affect appears flattened. Insight appears mostly intact, but does have cognitive/memory deficits. - Constitutional Vitals: Vital Signs - 12hr 10/31/19 10/31/19 10/31/19 06:11 06:14 07:53 Temperature 98.9 F 98.1 F Pulse Rate 65 66 Respiratory 18 18 18 Rate Blood Pressure Blood Pressure 156/79 [Left] O2 Sat by Pulse 97 95 97 Oximetry 10/31/19 08:28 Temperature Pulse Rate 66 Respiratory Rate Blood Pressure 156/79 Blood Pressure [Left] O2 Sat by Pulse Oximetry - Allied health notes Allied health notes reviewed: nursing, PT, ST, OT FIMS assessment as documented by PT/OT/ST: Social interaction/Memory/Problem solving Social Interaction FIM Score 3. Moderate Assistance (Interacts appropriately 50-74%.) Memory FIM Score 3. Moderate Assistance (Recognizes and remembers 50-74%.) Problem Solving FIM Score 3. Moderate Assistance (Solves routine problems 50-74%.) Transfers Mode of Locomotion: Wheelchair Bed/Chair/Wheelchair Transfers 2. Maximal Assistance (Patient = 25% or more) FIM Score Eating Eating FIM Score 3. Moderate Assistance (Patient = 50% or more) Dressing-Upper body Upper Body Dressing Device Metal Neutralizer Patient retrieves clothing No items: Patient applies/removes UE No prosthesis or orthosis: Upper Body Dressing FIM Score 2. Maximal Assistance (Patient = 25% or more) Dressing-lower body Patient retrieves clothing No items: Patient applies/removes LE No prosthesis or orthosis: Lower Body Dressing FIM Score 2. Maximal Assistance (Patient = 25% or more) - Labs CBC & Chem 7: 10/28/19 07:42 10/28/19 07:42 Labs: Laboratory Results - last 72 hr 10/28/19 10/28/19 10/28/19 12:11 16:24 21:30 POC Glucose 131 H 188 H 142 H 10/29/19 10/29/19 10/29/19 08:08 11:54 16:15 POC Glucose 127 H 167 H 149 H 10/29/19 10/30/19 10/30/19 21:04 07:46 11:34 POC Glucose 153 H 133 H 188 H 10/30/19 10/30/19 10/31/19 16:23 21:32 07:20 POC Glucose 197 H 87 109 H Assessment and Plan CVA, MCA, embolic with hemorrhagic conversion left dominant hemiplegia: Flaccid left side. Continue secondary stroke prevention (antithrombotic, statin (goal LDLC <70), BP control (goal less than 140/90), GLU control (goal A1c <7), and lifestyle modification). Monitor for recurrent stroke or post-stroke recrudescence. Continue neuromotor therapy as above. Family training when available. Monitor for post-stroke depression, cognitive deficits, seizure, dysphagia, aphasia, shoulder-hand syndrome, sensory deficits, spasticity, bowel/bladder deficits, sleep disturbance, vision deficits, pressure sores and DVT. Prognosis for recovery and secondary stroke prevention discussed with patient a nd family. Follow-up with neurology. No driving until cleared by neurologist. Paroxysmal atrial fibrillation: Continue rate control and anticoagulation. Adjust medications as needed. Monitor for palpitations, dyspnea, lightheadedness, chest pain, fatigue. EKG as needed. Diastolic dysfunction: Monitor for any exacerbation of diastolic dysfunction. Hypertension: Continue medications. Monitor blood pressure every 4 hours while awake. Adjust medications as needed for normotension and hold for hypotension. Diabetes type 2: Continue current diet. Monitor blood glucose before meals and at bedtime. Sliding scale insulin. Adjust medications as needed for normoglycemia. Skin checks per nursing to identify any new wounds. Left upper extremity and left lower extremity DVT: Continue Eliquis. Monitor for any signs of worsening condition. Patient does have a IVC filter installed as well. Dysphagia: Medications and supplemental feeds through PEG. Continue current diet (dysphasia mechanical softchopped with regular thin liquids.). [employer] TANKER DRIVER to monitor and advance diet as able, and perform FEES, MBSS or e-stim as needed. Shoulder subluxation: Continue strengthening exercises for improvement of shoulder subluxation. Arm tray while in wheelchair. Prop the arm on pillows including hand for elevation while in bed. Consider kinesiotaping and/or e- stim. Lidoderm Anemia: Microcytic. Replace iron, folate, vitamin C. monitor. Hemoglobin has recovered however still very microcytic Cognition: Continue amantadine at breakfast as well as lunch. Patient was previously getting this every 12 hours we should see a little bit better tolerance for it scheduled appropriately. Monitor for improvement. Supportive care and therapy. Family involvement as available. Continue reminders throughout therapy and the day to ensure patient safety. Altered sensation on the left: Monitor for skin wounds. Improve patient's ability to self monitor placement of limbs to avoid injury. Medication as needed for painful paresthesias. Poor nutritional intake: Check nutrition labs including pre-albumin (0.211 slightly better than normal). Monitor oral intake and weights. Patient is on appetite stimulant, continue Remeron. TF for <50% eaten. Right craniectomy: Currently sunken with very slight CSF collection at the base of the craniectomy. Monitor for any changes in volume and notified neurosurgeon if this occurs. Helmet on anytime out of bed. When out of bed with helmet on need to monitor periodically for swelling. ADL dysfunction: OT will work on improving ability to perform ADLs (including assistive devices) to increase independence and decrease caregiver burden and improve functional transfers and mobility training. Difficulty walking: PT will work on gait training and proper use of assistive devices and advance as appropriate to use of stairs and outside ambulation on uneven surfaces. Unsteadiness on feet: PT will work on improving static and dynamic sitting and standing balance as well as proper use of assistive devices to decrease risk of falls. Abnormality of gait: PT will work to improve safety and efficiency of gait through neuromotor training and gait training along with instruction on proper use of assistive devices. Muscle weakness: PT & OT will work on strengthening exercises to improve functional strength including mixture of closed and open kinetic chain exercises. Debility: PT & OT will work on improving overall functional status to improve participation with ADLs, mobility and social involvement. Fatigue: PT & OT will work on improving endurance through aerobic exercises and therapeutic activity while monitoring patients tolerance for activity and vital signs as needed. DVT ppx: Eliquis for atrial fibrillation Pain: Continue physical modalities in therapy and pain medications as needed to achieve functional pain control. Sleep: Monitor and address as needed. Melatonin Bowel: Monitor and address as needed. Increased medications, scheduled. Continue to monitor Appetite: Monitor and address as needed. Mirtazapine Discharge planning: Pending therapy progress and care plan meeting. Will continue discussion with therapy team, SW, patient and family. Wednesday November 06, 2019 Restrictions/ Precautions: Falls, craniectomy (helmet on when out of bed), low bed, decreased sensation on left WB status: FWB Functional Hx: ADLs: Independent Cognition: Independent Mobility: No AD Working on having the family come in for family training. Family is adamant that they are not sending him back to a snf which is where he came to us from. Making some improvement with transfers, hopeful for ability to con tinue making improvement. Will discuss tomorrow. Working with the family we hope to reduce the level of caregiver burden and to educate them on how to safely provide care for Mr. Condon as he transitions back home. They will need all medical equipment including Ana lift, wheelchair, and a hospital bed (may change based on clinical pictures). Will discuss with the family when they arrive so that we can make the appropriate orders and not duplicate any materials that they currently have at home. Barriers to Discharge: Decreased mobility and ability to perform self care, balance deficits, weakness, craniectomy, left dominant hemiplegia, dysphagia Estimated Length of Stay: 1421 days Discharge Destination: Home with family DME: Wheelchair with high back, reclining, seatbelt, lateral stays, anti-tippers, pommel cushion. Patient has had a stroke and is flaccid on the left side. Sitting balance is reasonable for most times however he does have episodes of pushing and sliding. He also has a craniectomy and wears a helmet when out of bed. Due to cognitive issues as well as truncal strength and balance he would benefit from having a specialized wheelchair with an a higher back that reclines for safety. Because he does tend to slide out a pommel cushion would be pre ferable accompanied by a seatbelt. Lateral stays and anti-tippers will also be recommended from a safety standpoint. Patient does not have the ability to stand for prolonged periods of time without significant assistance. He cannot perform any MRADLs from a standing level and will need a wheelchair to perform these. He is unable to utilize a rolling walker or cane of any type at this point. He does have willingness and is able to utilize the wheelchair and has been using one on the rehab unit. Semi-electric hospital bed. Patient has CVA with a left-sided hemiplegia. At this point he is flaccid on the left side and we are approximately 3 months from the initial date of the stroke. He still requires intermittent tube feeds. He has poor bed mobility and will need assistance with positioning in order to avoid pressure sores. He can perform some transfers with assistance if the bed is at the proper height. Based on these criteria (patient requires tube feeds, reduction of pressure sores based on poor mobility, assistance with transfers with variable height) the patient does qualify for bed under Medicare rules. Ana lift. Although the patient does have the ability to perform transfers he is also intermittent with his abilities on a day-to-day basis. In order for the patient to be transferred safely from the bed to the wheelchair in order to allow for cleaning, toileting, changing of linens, getting out to appointments, etc. it would be safer from the family standpoint if they have the option of utilizing a Ana lift when he is having a bad day and unable to perform the transfers himself. Again this is a intermittent issue with him but he does have issues with this at least half of the week from our experience of working with him. Patient height 5 foot 8 inches. Patient weight 169 pounds.
[2019-10-31] MEDS: MELATONIN 5 MG TAB PO SCH (22:17)
[2019-10-31] MEDS: MIRTAZAPINE 15 MG TAB FEEDTUBE SCH (22:17)
[2019-10-31] MEDS: INSULIN GLARGINE 100 UNITS/ML SUB-Q SCH (22:18)
[2019-10-31] MEDS: SENNOSIDES 8.6 MG TAB PO SCH (22:19)
[2019-10-31] MEDS: traMADol 50 MG TAB FEEDTUBE PRN (23:36)
[2019-11-01] MEDS: FERROUS SULFATE 325 MG TAB PO SCH ×2 (09:06→22:16)
[2019-11-01] MEDS: FAMOTIDINE 20 MG TAB FEEDTUBE SCH ×2 (09:06→22:00)
[2019-11-01] MEDS: carvediloL 6.25 MG TAB FEEDTUBE SCH ×2 (09:06→22:14)
[2019-11-01] MEDS: LISINOPRIL 40 MG TAB FEEDTUBE SCH (09:07)
[2019-11-01] MEDS: amLODIPine 10 MG TAB FEEDTUBE SCH (09:07)
[2019-11-01] MEDS: APIXABAN 5 MG TAB FEEDTUBE SCH ×2 (09:07→22:14)
[2019-11-01] MEDS: AMANTADINE FEEDTUBE SCH ×2 (09:07→12:41)
[2019-11-01] MEDS: hydrALAZINE 100 MG TAB FEEDTUBE SCH ×3 (09:08→20:16)
[2019-11-01] MEDS: ASCORBIC ACID 500 MG TAB PO SCH ×2 (09:08→22:15)
[2019-11-01] MEDS: FOLIC ACID 1 MG TAB PO SCH (09:08)
[2019-11-01] MEDS: LIDOCAINE 5% 1 EACH PATCH TD SCH (09:09)
[2019-11-01] MEDS: INSULIN LISPRO 100 UNIT/ML SUB-Q SCH ×3 (09:21→17:48)
[2019-11-01] MEDS: POLYETHYLENE GLYCOL 3350 17 GM POWDER FEEDTUBE SCH (09:21)
--- NOTE | 2019-11-01 12:46 | Progress Note ---
Subjective Date of service: 11/01/19 Principal diagnosis: CVA Interval history: 64-year-old male who presented to [facility] on August 11 with acute onset of left-sided weakness. 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 Alteplase was given on 08/11. He developed delayed cerebral edema and hemorrhagic conversion. CT head showed large right-sided MCA territory infarct with scattered hyperdensities and cerebral edema with midline shift on August 13. August 15 there is an increase to 7 mm from the previous [address] with new petechial hemorrhages. Neurosurgery was consulted and ultimately required a decompressive hemicraniectomy on August 22. He continued to have increased bleeding prompting aspirin to be held on August 25. Patient was transferred from the ICU to neurology general floor on August 27. MRI brain on August 30 showed evolving large right MCA infarct with hemorrhagic transformation. Stable appearing midline shift. Hematoma superficial to craniotomy in the right temporalis muscle. On 08/30 he underwent Ultrasound Doppler venous left upper extremity showed a nonocclusive deep vein thrombosis in the left axillary vein and a thrombus within the superficial basilic vein. Ultrasound Doppler venous left lower extremity showed chronic DVT of the left common femoral vein on 09/04 for which an IVC filter was placed on September 06. PEG was placed on September 10 due to poor oral intake and dysphasia. EKG and telemetry monitoring showed paroxysmal atrial fibrillation. TTE showed an ejection fraction of 50 to 55% with severely dilated left atrium and impaired left ventricle relaxation. Patient was tolerating a bolus tube feed diet of Nutren 1.5 max of 5 cans/day with free water flushes 100 mils before and after each feed if the patient ate less than 25% bolus 2 cans, 50% bolus 1 can, greater than 50% no bolus. Stroke labs at outside hospital A1c 7.1, TSH 1.375, total cholesterol 198, LDL 132, RPR nonreactive, INR 1.1. Patient was transition to Eliquis as a secondary stroke prevention and anticoagulation for atrial fibrillation. He was taken off of aspirin due to risk of bleeding prior to leaving the hospital and going to the [facility] facility. The physicians at the hospital also made recommendation for considering a watchman device as an outpatient. 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 After the patient was stabilized he was transferred to subacute rehabilitation. Family visited our inpatient rehabilitation and was unhappy with his lack of progress at subacute and noted that he has been participating more with therapy but do not feel like he is getting the amount of therapy that he could truly benefit from. After discussion with the family as well as the facility and review of the past we opted to accept the patient to give him an opportunity to participate in a more intensive therapy schedule. Several discussions had with family on final disposition and ensuring that he would be going home regardless of how much recovery we were able to make. Patient was transferred to us from a subacute rehab where he has been since September 20. After the patient was medically stabilized they were transferred for further rehabilitation. All available medical records have been reviewed. Plan of care, prognosis, expectations, secondary stroke prevention, discharge planning was discussed with patient and family (2 daughters). Day prior to admission 48 minutes were spent reviewing all available records from the outside hospital as well as the [facility] facility in preparation for transfer of the patient to acute inpatient rehabilitation. Interval history: Patient is participating in therapy and making slow progress. Had a decent day today, was performing fairly well with standing but is still max assist for that activity. Taking rest breaks as needed. +BM. Afebrile. Denies palpitations, dyspnea, cough. No nausea/vomiting. Patient has variable interaction and responses to therapy from day-to-day. Family should be coming for family training on Monday, this will be complicated due to the restrictions on visitors currently and we are seeking a waiver for them. CVA: Patient making progress with therapy. Although his progress has been slow, he is improving in his ability to perform transfers and some ADLs and is now at the mod assist level typically but does have variability as stated above from day-to-day. His time on rehab has been productive to this point and we will need to get family in for family training. Having difficulty contacting them for making this happen. We will continue to work on that. If we are unable to contact them we may be forced to discharge him to a [facility] facility. Continue to monitor for worsening neurologic function. Continue secondary stroke prevention. No change in hemiplegia, no spasticity, no change in dysphagia. Left shoulder sublux: Pain better since starting Lidoderm, monitor. Discussed again that he needs to keep it supported. Poor carryover Hemicraniectomy: Sunken, helmet on when out of bed, well-healed continue to monitor, will need to follow-up with neurosurgeon at discharge. Constipation: Continue bowel meds and monitor for improvement. Paroxysmal atrial fibrillation: Denies palpitations, rate controlled, tolerating anticoagulation. Continue to monitor Hypertension: Blood pressures been in a good range. Continue to monitor Diabetes: Glucose checks have been reasonable. Continue to monitor and adjust insulin as needed based on oral intake. Anemia: Hemoglobin level has normalized, however he is still microcytic. Nutrition: Oral intake is variable. Utilizing PEG tube for nutritional supplementation if less than 50% of meal eaten. We will continue to monitor and continue appetite stimulant.Patient does state that he is eating also states that he does not like hospital food. Have been supplementing as needed with tube feeds however he also does not want these. Cognition: Continue amantadine and monitor for improvement. Patient seems alert and interactive today. All records, vitals, labs and medications were reviewed. No other issues per patient, nursing or therapy. Objective - Exam Narrative Exam: MUSCULOSKELETAL SPECIALTY EXAM CONSTITUTIONAL: Well developed, well nourished, appropriately groomed. LEFT hand dominant. Head: Right craniectomy site sunken , soft, helmet off during exam while he was sitting in wheelchair (reminded patient to keep helmet on anytime he is out of bed) RESPIRATORY: Clear to auscultation bilaterally, no increased work of breathing CARDIOVASCULAR: Regular Rate/ Rhythm, no swelling, edema or tenderness in BUE or BLE. All extre mities warm. GI: + bowel sounds, soft, NTTP, nondistended. PEG tube present INTEGUMENTARY: Normal, no lesion, rash, masses or bruising noted in extremities. MUSCULOSKELETAL: Left shoulder subluxation, otherwise BUE and BLE normal without defect, crepitus, subluxation, effusion, arthritic changes or TTP. R 4+/5 L 0/5 ROM decreased on left, normal on right Tone flaccid on left, normal on right NEURO: CN II : Right visual colmenares full to confrontation, left blind CN III, IV, : EOMI on the right but right eye does preferentially veer towards the lateral aspect CN V : Facial sensation intact decreased on left CN VII : Slight left facial droop CN XI : Left shoulder shrug absent Sensation impaired on left with extinction, normal on right No tremor noted in 4 extremities. Naming and repetition intact. Follows 2 step commands. Aphasia not appreciated Dysarthria not appreciated Dysphagia present Neglect to left side with activity, right gaze preference. Does recognize the left and address it, just can not attend to it. POSTURE and GAIT: Sitting posture improving. Gait deferred. Sitting balance improving but he still has periods of pushing. Starting to perform transfers with setup, able to stand with assistance for short period of time. Overall, improved but inconsistent. PSYCH: Alert, oriented x3, affect appears flattened. Insight appears mostly intact, but does have cognitive/memory deficits. - Constitutional Vitals: Vital Signs - 12hr 11/01/19 11/01/19 11/01/19 00:36 04:32 07:34 Temperature 98.1 F 98.2 F Pulse Rate 64 60 Respiratory 16 17 18 Rate Blood Pressure 126/62 127/63 O2 Sat by Pulse 96 98 Oximetry 11/01/19 11/01/19 09:06 09:07 Temperature Pulse Rate 60 60 Respiratory Rate Blood Pressure 127/63 127/63 O2 Sat by Pulse Oximetry - Allied health notes Allied health notes reviewed: nursing, PT, ST, OT FIMS assessment as documented by PT/OT/ST: Social interaction/Memory/Problem solving Social Interaction FIM Score 3. Moderate Assistance (Interacts appropriately 50-74%.) Memory FIM Score 4. Minimal Assistance (Recognizes and remembers 75-90%.) Problem Solving FIM Score 3. Moderate Assistance (Solves routine problems 50-74%.) Transfers Mode of Locomotion: Wheelchair Bed/Chair/Wheelchair Transfers 2. Maximal Assistance (Patient = 25% or more) FIM Score Eating Eating FIM Score 3. Moderate Assistance (Patient = 50% or more) Dressing-Upper body Upper Body Dressing Device Customer Advisor Specialist Patient retrieves clothing No items: Patient applies/removes UE No prosthesis or orthosis: Upper Body Dressing FIM Score 2. Maximal Assistance (Patient = 25% or more) Dressing-lower body Patient retrieves clothing No items: Patient applies/removes LE No prosthesis or orthosis: Lower Body Dressing FIM Score 2. Maximal Assistance (Patient = 25% or more) - Labs CBC & Chem 7: 10/28/19 07:42 10/28/19 07:42 Labs: Laboratory Results - last 72 hr 10/29/19 10/29/19 10/30/19 16:15 21:04 07:46 POC Glucose 149 H 153 H 133 H 10/30/19 10/30/19 10/30/19 11:34 16:23 21:32 POC Glucose 188 H 197 H 87 10/31/19 10/31/19 10/31/19 07:20 12:02 16:41 POC Glucose 109 H 245 H 132 H 10/31/19 11/01/19 11/01/19 21:46 07:46 11:37 POC Glucose 156 H 115 H 178 H Assessment and Plan CVA, MCA, embolic with hemorrhagic conversion left dominant hemiplegia: Flaccid left side. Continue secondary stroke prevention (antithrombotic, statin (goal LDLC <70), BP control (goal less than 140/90), GLU control (goal A1c <7), and lifestyle mo dification). Monitor for recurrent stroke or post-stroke recrudescence. Continue neuromotor therapy as above. Family training when available. Monitor for post-stroke depression, cognitive deficits, seizure, dysphagia, aphasia, shoulder-hand syndrome, sensory deficits, spasticity, bowel/bladder def icits, sleep disturbance, vision deficits, pressure sores and DVT. Prognosis for recovery and secondary stroke prevention discussed with patient and family. Follow-up with neurology. No driving until cleared by neurologist. Paroxysmal atrial fibrillation: Continue rate control and anticoagulation. Adjust medications as needed. Monitor for palpitations, dyspnea, lightheadedness, chest pain, fatigue. EKG as needed. Diastolic dysfunction: Monitor for any exacerbation of diastolic dysfunction. Hypertension: Continue medications. Monitor blood pressure every 4 hours while awake. Adjust medications as needed for normotension and hold for hypotension. Diabetes type 2: Continue current diet. Monitor blood glucose before meals and at bedtime. Sliding scale insulin. Adjust medications as needed for normoglycemia. Skin checks per nursing to identify any new wounds. Left upper extremity and left lower extremity DVT: Continue Eliquis. Monitor for any signs of worsening condition. Patient does have a IVC filter installed as well. Dysphagia: Medications and supplemental feeds through PEG. Continue current diet (dysphasia mechanical softchopped with regular thin liquids.). STENOTYPE OPERATOR to monitor and advance diet as able, and perform FEES, MBSS or e-stim as needed. Shoulder subluxation: Continue strengthening exercises for improvement of shoulder subluxation. Arm tray while in wheelchair. Prop the arm on pillows including hand for elevation while in bed. Consider kinesiotaping and/or e- stim. Lidoderm Anemia: Microcytic. Replace iron, folate, vitamin C. monitor. Hemoglobin has recovered however still very microcytic Cognition: Continue amantadine at breakfast as well as lunch. Patient was previously getting this every 12 hours we should see a little bit better tolerance for it scheduled appropriately. Monitor for improvement. Supportive care and therapy. Family involvement as available. Continue reminders throughout therapy and the day to ensure patient safety. Altered sensation on the left: Monitor for skin wounds. Improve patient's ability to self monitor placement of limbs to avoid injury. Medication as needed for painful paresthesias. Poor nutritional intake: Check nutrition labs including pre-albumin (0.211 slightly better than normal). Monitor oral intake and weights. Patient is on appetite stimulant, continue Remeron. TF for <50% eaten. Seems to be eating more food from home. Still, intermittent oral intake. Will recommend con tinuing tube feeds as needed for supplement. Oral supplement also started. Right craniectomy: Currently sunken with very slight CSF collection at the base of the craniectomy. Monitor for any changes in volume and notified neurosurgeon if this occurs. Helmet on anytime out of bed. When out of bed with helmet on need to monitor periodically for swelling. ADL dysfunction: OT will work on improving ability to perform ADLs (including assistive devices) to increase independence and decrease caregiver burden and improve functional transfers and mobility training. Difficulty walking: PT will work on gait training and proper use of assistive devices and advance as appropriate to use of stairs and outside ambulation on uneven surfaces. Unsteadiness on feet: PT will work on improving static and dynamic sitting and standing balance as well as proper use of assistive devices to decrease risk of falls. Abnormality of gait: PT will work to improve safety and efficiency of gait through neuromotor training and gait training along with instruction on proper use of assistive devices. Muscle weakness: PT & OT will work on strengthening exercises to improve functional strength including mixture of closed and open kinetic chain exercises. Debility: PT & OT will work on improving overall functional status to improve participation with ADLs, mobility and social involvement. Fatigue: PT & OT will work on improving endurance through aerobic exercises and therapeutic activity while monitoring patients tolerance for activity and vital signs as needed. DVT ppx: Eliquis for atrial fibrillation Pain: Continue physical modalities in therapy and pain medications as needed to achieve functional pain control. Sleep: Monitor and address as needed. Melatonin Bowel: Monitor and address as needed. Increased medications, scheduled. Continue to monitor Appetite: Monitor and address as needed. Mirtazapine Discharge planning: Pending therapy progress and care plan meeting. Will continu e discussion with therapy team, SW, patient and family. Wednesday November 06, 2019 Restrictions/ Precautions: Falls, craniectomy (helmet on when out of bed), low bed, decreased sensation on left WB status: FWB Functional Hx: ADLs: Independent Cognition: Independent Mobility: No AD Working on having the family come in for family training. Family is adamant that they are not sending him back to a [facility] which is where he came to [facility] from. Making some improvement with transfers, hopeful for ability to continue making improvement. Will discuss tomorrow. Working with the family we hope to reduce the level of caregiver burden and to educate them on how to safely provide care for Mr. Condon as he transitions back home. They will need all medical equipment including Ana lift, wheelchair, and a hospital bed (may change based on clinical pictures). Will discuss with the family when they arrive so that we can make the appropriate orders and not duplicate any materials that they currently have at home. Barriers to Discharge: Decreased mobility and ability to perform self care, bal ance deficits, weakness, craniectomy, left dominant hemiplegia, dysphagia Estimated Length of Stay: 1421 days Discharge Destination: Home with family DME: Wheelchair with high back, reclining, seatbelt, lateral stays, anti-tippers, pommel cushion. Patient has had a stroke and is flaccid on the left side. Sitting balance is reasonable for most times however he does have episodes of pushing and sliding. He also has a craniectomy and wears a helmet when out of bed. Due to cognitive issues as well as truncal strength and balance he would benefit from having a specialized wheelchair with an a higher back that reclines for safety. Because he does tend to slide out a pommel cushion would be preferable accompanied by a seatbelt. Lateral stays and anti-tippers will also be recommended from a safety standpoint. Patient does not have the ability to stand for prolonged periods of time without significant assistance. He cannot perform any MRADLs from a standing level and will need a wheelchair to perform these. He is unable to utilize a rolling walker or cane of any type at this point. He does have willingness and is able to utilize the wheelchair and has been using one on the rehab unit. Semi-electric hospital bed. Patient has CVA with a left-sided hemiplegia. At this point he is flaccid on the left side and we are approximately 3 months from the initial date of the stroke. He still requires intermittent tube feeds. He has poor bed mobility and will need assistance with positioning in order to avoid pressure sores. He can perform some transfers with assistance if the bed is at the proper height. Based on these criteria (patient requires tube feeds, reduction of pressure sores based on poor mobility, assistance with transfers with variable height) the patient does qualify for bed under Medicare rules. Ana lift. Although the patient does have the ability to perform transfers he is also intermittent with his abilities on a day-to-day basis. In order for the patient to be transferred safely from the bed to the wheelchair in order to allow for cleaning, toileting, changing of linens, getting out to appointments, etc. it would be safer from the family standpoint if they have the option of utilizing a Ana lift when he is having a bad day and unable to perform the transfers himself. Again this is a intermittent issue with him but he does have issues with this at least half of the week from our experience of working with him. Patient height 5 foot 8 inches. Patient weight 169 pounds.
[2019-11-01] MEDS: traMADol 50 MG TAB FEEDTUBE PRN (13:48)
[2019-11-01] MEDS: MELATONIN 5 MG TAB PO SCH (21:00)
[2019-11-01] MEDS: MIRTAZAPINE 15 MG TAB FEEDTUBE SCH (21:15)
[2019-11-01] MEDS: SENNOSIDES 8.6 MG TAB PO SCH (21:16)
[2019-11-01] MEDS: INSULIN GLARGINE 100 UNITS/ML SUB-Q SCH (22:31)
[2019-11-02] MEDS: carvediloL 6.25 MG TAB FEEDTUBE SCH ×2 (08:47→22:28)
[2019-11-02] MEDS: FOLIC ACID 1 MG TAB PO SCH (08:47)
[2019-11-02] MEDS: LIDOCAINE 5% 1 EACH PATCH TD SCH (08:47)
[2019-11-02] MEDS: ASCORBIC ACID 500 MG TAB PO SCH ×2 (08:47→22:29)
[2019-11-02] MEDS: INSULIN LISPRO 100 UNIT/ML SUB-Q SCH ×5 (08:47→22:50)
[2019-11-02] MEDS: APIXABAN 5 MG TAB FEEDTUBE SCH ×3 (08:47→22:29)
[2019-11-02] MEDS: amLODIPine 10 MG TAB FEEDTUBE SCH (08:47)
[2019-11-02] MEDS: FERROUS SULFATE 325 MG TAB PO SCH ×2 (08:47→22:27)
[2019-11-02] MEDS: FAMOTIDINE 20 MG TAB FEEDTUBE SCH ×2 (08:47→22:27)
[2019-11-02] MEDS: LISINOPRIL 40 MG TAB FEEDTUBE SCH (08:47)
[2019-11-02] MEDS: AMANTADINE FEEDTUBE SCH ×2 (08:47→14:22)
[2019-11-02] MEDS: POLYETHYLENE GLYCOL 3350 17 GM POWDER FEEDTUBE SCH (08:48)
[2019-11-02] MEDS: hydrALAZINE 100 MG TAB FEEDTUBE SCH ×3 (08:48→22:31)
[2019-11-02] MEDS: MELATONIN 5 MG TAB PO SCH (21:00)
[2019-11-02] MEDS: MIRTAZAPINE 15 MG TAB FEEDTUBE SCH (21:00)
[2019-11-02] MEDS: INSULIN GLARGINE 100 UNITS/ML SUB-Q SCH (22:45)
[2019-11-02] MEDS: SENNOSIDES 8.6 MG TAB PO SCH (22:46)
[2019-11-03] MEDS: carvediloL 6.25 MG TAB FEEDTUBE SCH ×2 (07:53→21:56)
[2019-11-03] MEDS: LISINOPRIL 40 MG TAB FEEDTUBE SCH (07:53)
[2019-11-03] MEDS: ASCORBIC ACID 500 MG TAB PO SCH ×2 (07:53→21:56)
[2019-11-03] MEDS: FAMOTIDINE 20 MG TAB FEEDTUBE SCH ×2 (07:53→21:56)
[2019-11-03] MEDS: hydrALAZINE 100 MG TAB FEEDTUBE SCH ×3 (07:53→21:57)
[2019-11-03] MEDS: FOLIC ACID 1 MG TAB PO SCH (07:53)
[2019-11-03] MEDS: FERROUS SULFATE 325 MG TAB PO SCH ×2 (07:53→21:56)
[2019-11-03] MEDS: amLODIPine 10 MG TAB FEEDTUBE SCH (07:53)
[2019-11-03] MEDS: POLYETHYLENE GLYCOL 3350 17 GM POWDER FEEDTUBE SCH (07:54)
[2019-11-03] MEDS: AMANTADINE FEEDTUBE SCH ×2 (07:54→12:17)
[2019-11-03] MEDS: APIXABAN 5 MG TAB FEEDTUBE SCH ×3 (07:54→21:56)
[2019-11-03] MEDS: LIDOCAINE 5% 1 EACH PATCH TD SCH (07:54)
[2019-11-03] MEDS: INSULIN LISPRO 100 UNIT/ML SUB-Q SCH ×4 (08:02→21:59)
[2019-11-03] MEDS: MELATONIN 5 MG TAB PO SCH (21:56)
[2019-11-03] MEDS: traMADol 50 MG TAB FEEDTUBE PRN (21:57)
[2019-11-03] MEDS: SENNOSIDES 8.6 MG TAB PO SCH (21:57)
[2019-11-03] MEDS: MIRTAZAPINE 15 MG TAB FEEDTUBE SCH (21:57)
[2019-11-03] MEDS: INSULIN GLARGINE 100 UNITS/ML SUB-Q SCH (21:58)
--- NOTE | 2019-11-04 07:56 | Progress Note ---
Subjective Date of service: 11/04/19 Principal diagnosis: CVA Interval history: 64-year-old male who presented to [place] [facility] on August 11 with acute onset of left-sided weakness. 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 Alteplase was given on 08/11. He developed delayed cerebral edema and hemorrhagic conversion. CT head showed large right-sided MCA territory infarct with scattered hyperdensities and cerebral edema with midline shift on August 13. August 15 there is an increase to 7 mm from the previous [address] with new petechial hemorrhages. Neurosurgery was consulted and ultimately required a decompressive hemicraniectomy on August 22. He continued to have increased bleeding prompting aspirin to be held on August 25. Patient was transferred from the ICU to neurology general floor on August 27. MRI brain on August 30 showed evolving large right MCA infarct with hemorrhagic transformation. Stable appearing midline shift. Hematoma superficial to craniotomy in the right temporalis muscle. On 08/30 he underwent Ultrasound Doppler venous left upper extremity showed a nonocclusive deep vein thrombosis in the left axillary vein and a thrombus within the superficial basilic vein. Ultrasound Doppler venous left lower extremity showed chronic DVT of the left common femoral vein on 09/04 for which an IVC filter was placed on September 06. PEG was placed on September 10 due to poor oral intake and dysphasia. EKG and telemetry monitoring showed paroxysmal atrial fibrillation. TTE showed an ejection fraction of 50 to 55% with severely dilated left atrium and impaired left ventricle relaxation. Patient was tolerating a bolus tube feed diet of Nutren 1.5 max of 5 cans/day with free water flushes 100 mils before and after each feed if the patient ate less than 25% bolus 2 cans, 50% bolus 1 can, greater than 50% no bolus. Stroke labs at outside hospital A1c 7.1, TSH 1.375, total cholesterol 198, LDL 132, RPR nonreactive, INR 1.1. Patient was transition to Eliquis as a secondary stroke prevention and anticoagulation for atrial fibrillation. He was taken off of aspirin due to risk of bleeding prior to leaving the hospital and going to the retirement facility. The physicians at the hospital also made recommendation for considering a watchman device as an outpatient. 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 After the patient was stabilized he was transferred to subacute rehabilitation. Family visited our inpatient rehabilitation and was unhappy with his lack of progress at subacute and noted that he has been participating more with therapy but do not feel like he is getting the amount of therapy that he could truly benefit from. After discussion with the family as well as the facility and review of the past we opted to accept the patient to give him an opportunity to participate in a more intensive therapy schedule. Several discussions had with family on final disposition and ensuring that he would be going home regardless of how much recovery we were able to make. Patient was transferred to us from a subacute rehab where he has been since September 20. After the patient was medically stabilized they were transferred for further rehabilitation. All available medical records have been reviewed. Plan of care, prognosis, expectations, secondary stroke prevention, discharge planning was discussed with patient and family (2 daughters). Day prior to admission 48 minutes were spent reviewing all available records from the outside hospital as well as the retirement facility in preparation for transfer of the patient to acute inpatient rehabilitation. Interval history: Patient is participating in therapy and making slow progress. Had a decent day today, was performing fairly well with standing but is still max assist for that activity. Taking rest breaks as needed. +BM, Afebrile. Denies palpitations, dyspnea, cough. No nausea/vomiting. Patient has variable interaction and responses to therapy from day-to-day. Family here today for family training. CVA: Patient making progress with therapy. Although his progress has been slow, he is improving in his ability to perform transfers and some ADLs and is now at the mod assist level typically but does have variability as stated above from day-to-day. Continue to monitor for worsening neurologic function. Continue secondary stroke prevention. No change in hemiplegia, no spasticity, no change in dysphagia. Mobility in bed improving somewhat. Left shoulder sublux: Pain better since starting Lidoderm, monitor. Discussed again that he needs to keep it supported. Poor carryover Hemicraniectomy: Sunken, helmet on when out of bed, well-healed continue to monitor, will need to follow-up with neurosurgeon at discharge. Constipation: reports of multiple loose stools NOT consistent with c diff. Only 1 BM charted each day and senna not held. Will d/c all scheduled bowel meds and monitor. Continue bowel meds and monitor for improvement. Paroxysmal atrial fibrillation: Denies palpitations, rate controlled, tolerating anticoagulation. Continue to monitor Hypertension: Blood pressures been in a good range. Continue to monitor Diabetes: Glucose checks have been reasonable. Continue to monitor and adjust insulin as needed based on oral intake. Anemia: Hemoglobin level has normalized, however he is still microcytic. Nutrition: Oral intake is variable. Utilizing PEG tube for nutritional michelle pplementation if less than 50% of meal eaten. We will continue to monitor and continue appetite stimulant.Patient does state that he is eating also states that he does not like hospital food. Have been supplementing as needed with tube feeds however he also does not want these. Cognition: Continue amantadine and monitor for improvement. Patient seems alert and interactive today. All records, vitals, labs and medications were reviewed. No other issues per patient, nursing or therapy. Objective - Exam Narrative Exam: MUSCULOSKELETAL SPECIALTY EXAM CONSTITUTIONAL: Well developed, well nourished, appropriately groomed. LEFT hand dominant. Head: Right craniectomy site sunken , soft, helmet off during exam while he was sitting in wheelchair (reminded patient to keep helmet on anytime he is out of bed) RESPIRATORY: Clear to auscultation bilaterally, no increased work of breathing CARDIOVASCULAR: Regular Rate/ Rhythm, no swelling, edema or tenderness in BUE or BLE. All extremities warm. GI: + bowel sounds, soft, NTTP, nondistended. PEG tube present, slight blood on bandage INTEGUMENTARY: Normal, no lesion, rash, masses or bruising noted in extremities. MUSCULOSKELETAL: Left shoulder subluxation, otherwise BUE and BLE normal without defect, crepitus, subluxation, effusion, arthritic changes or TTP. R 4+/5 L 0/5 - still no return of function on the left unfortunately ROM decreased on left, normal on right Tone flaccid on left, normal on right NEURO: CN II : Right visual colmenares full to confrontation, left blind CN III, IV, : EOMI on the right but right eye does preferentially veer towards the lateral aspect CN V : Facial sensation intact decreased on left CN VII : Slight left facial droop CN XI : Left shoulder shrug absent Sensation impaired on left with extinction, normal on right No tremor noted in 4 extremities. Naming and repetition intact. Follows 2 step commands. Aphasia not appreciated Dysarthria not appreciated Dysphagia present Neglect to left side with activity, right gaze preference. Does recognize the left and address it, just can not attend to it. POSTURE and GAIT: Sitting posture improving. Gait deferred. Sitting balance improving but he still has periods of pushing. Starting to perform transfers with setup, able to stand with assistance for short period of time. Overall, improved but inconsistent. PSYCH: Alert, oriented x3, affect appears flattened. Insight appears mostly intact, but does have cognitive/memory deficits. - Constitutional Vitals: Vital Signs - 12hr 11/03/19 11/03/19 11/03/19 21:56 21:57 22:00 Temperature Pulse Rate 66 Respiratory 20 18 Rate Respiratory 16 Rate [Left Upper Shoulder] Blood Pressure 123/64 Blood Pressure [Right] O2 Sat by Pulse Oximetry 11/03/19 11/04/19 11/04/19 22:57 00:14 04:39 Temperature 97.8 F 98.2 F Pulse Rate 60 55 L Respiratory 18 17 17 Rate Respiratory Rate [Left Upper Shoulder] Blood Pressure 130/75 128/70 Blood Pressure [Right] O2 Sat by Pulse 96 97 Oximetry 11/04/19 11/04/19 07:18 07:49 Temperature 97.7 F 97.7 F Pulse Rate 66 67 Respiratory 19 19 Rate Respiratory Rate [Left Upper Shoulder] Blood Pressure 145/74 Blood Pressure 145/74 [Right] O2 Sat by Pulse 95 96 Oximetry - Allied health notes Allied health notes reviewed: nursing, PT, ST, OT FIMS assessment as documented by PT/OT/ST: Social interaction/Memory/Problem solving Social Interaction FIM Score 3. Moderate Assistance (Interacts appropriately 50-74%.) Memory FIM Score 3. Moderate Assistance (Recognizes and remembers 50-74%.) Problem Solving FIM Score 2. Maximal Assistance (Solves problems 25-49% or needs restraint.) Transfers Mode of Locomotion: Wheelchair Bed/Chair/Wheelchair Transfers 2. Maximal Assistance (Patient = 25% or more) FIM Score Eating Eating FIM Score 3. Moderate Assistance (Patient = 50% or more) Dressing-Upper body Upper Body Dressing Device Manager Call Center Patient retrieves clothing No items: Patient applies/removes UE No prosthesis or orthosis: Upper Body Dressing FIM Score 2. Maximal Assistance (Patient = 25% or more) Dressing-lower body Patient retrieves clothing No items: Patient applies/removes LE No prosthesis or orthosis: Lower Body Dressing FIM Score 2. Maximal Assistance (Patient = 25% or more) - Labs CBC & Chem 7: 10/28/19 07:42 10/28/19 07:42 Labs: Laboratory Results - last 72 hr 11/01/19 11/01/19 11/01/19 11:37 16:51 21:35 POC Glucose 178 H 181 H 151 H 11/02/19 11/02/19 11/02/19 07:35 11:27 16:09 POC Glucose 120 H 134 H 124 H 11/02/19 11/03/19 11/03/19 22:33 05:46 07:30 POC Glucose 211 H 111 H 169 H 11/03/19 11/03/19 11/03/19 11:19 16:17 21:07 POC Glucose 127 H 132 H 178 H 11/04/19 07:33 POC Glucose 101 Assessment and Plan CVA, MCA, embolic with hemorrhagic conversion left dominant hemiplegia: Flaccid left side. Continue secondary stroke prevention (antithrombotic, statin (goal LDLC <70), BP control (goal less than 140/90), GLU control (goal A1c <7), and lifestyle modification). Monitor for recurrent stroke or post-stroke recrudescence. Continue neuromotor therapy as above. Family training when available. Monitor for post-stroke depression, cognitive deficits, seizure, dysphagia, aphasia, shoulder-hand syndrome, sensory deficits, spasticity, bowel/bladder deficits, sleep disturbance, vision deficits, pressure sores and DVT. Prognosis for recovery and secondary stroke prevention discussed with patient and family. Follow-up with neurology. No driving until cleared by neurologist. Paroxysmal atrial fibrillation: Continue rate control and anticoagulation. Adjust medications as needed. Monitor for palpitations, dyspnea, lightheadedness, chest pain, fatigue. EKG as needed. Diastolic dysfunction: Monitor for any exacerbation of diastolic dysfunction. Hypertension: Continue medications. Monitor blood pressure every 4 hours while awake. Adjust medications as needed for normotension and hold for hypotension. Diabetes type 2: Continue current diet. Monitor blood glucose before meals and at bedtime. Sliding scale insulin. Adjust medications as needed for normoglycemia. Skin checks per nursing to identify any new wounds. Left upper extremity and left lower extremity DVT: Continue Eliquis. Monitor for any signs of worsening condition. Patient does have a IVC filter installed as well. Dysphagia: Medications and supplemental feeds through PEG. Continue current diet (dysphasia mechanical softchopped with regular thin liquids.). PILL MAKER to monitor and advance diet as able, and perform FEES, MBSS or e-stim as needed. Slight bleeding at PEG this AM, looks like it was tuged, monitor Shoulder subluxation: Continue strengthening exercises for improvement of shoulder subluxation. Arm tray while in wheelchair. Prop the arm on pillows including hand for elevation while in bed. Consider kinesiotaping and/or e- stim. Lidoderm Anemia: Microcytic. Replace iron, folate, vitamin C. monitor. Hemoglobin has recovered however still very microcytic Cognition: Continue amantadine at breakfast as well as lunch. Patient was previously getting this every 12 hours we should see a little bit better tolerance for it scheduled appropriately. Monitor for improvement. Supportive care and therapy. Family involvement as available. Continue reminders throughout therapy and the day to ensure patient safety. Altered sensation on the left: Monitor for skin wounds. Improve patient's ability to self monitor placement of limbs to avoid injury. Medication as needed for painful paresthesias. Poor nutritional intake: Check nutrition labs including pre-albumin (0.211 slightly better than normal). Monitor oral intake and weights. Patient is on appetite stimulant, continue Remeron. TF for <50% eaten. Seems to be eating more food from home. Still, intermittent oral intake. Will recommend continuing tube feeds as needed for supplement. Oral supplement also started. Right craniectomy: Currently sunken with very slight CSF collection at the base of the craniectomy. Monitor for any changes in volume and notified neurosurgeon if this occurs. Helmet on anytime out of bed. When out of bed with helmet on need to monitor periodically for swelling. ADL dysfunction: OT will work on improving ability to perform ADLs (including assistive devices) to increase independence and decrease caregiver burden and improve functional transfers and mobility training. Difficulty walking: PT will work on gait training and proper use of assistive devices and advance as appropriate to use of stairs and outside ambulation on uneven surfaces. Unsteadiness on feet: PT will work on improving static and dynamic sitting and standing balance as well as proper use of assistive devices to decrease risk of falls. Abnormality of gait: PT will work to improve safety and efficiency of gait through neuromotor training and gait training along with instruction on proper use of assistive devices. Muscle weakness: PT & OT will work on strengthening exercises to improve functional strength including mixture of closed and open kinetic chain exercises. Debility: PT & OT will work on improving overall functional status to improve participation with ADLs, mobility and social involvement. Fatigue: PT & OT will work on improving endurance through aerobic exercises and therapeutic activity while monitoring patients tolerance for activity and vital signs as needed. DVT ppx: Eliquis for atrial fibrillation Pain: Continue physical modalities in therapy and pain medications as needed to achieve functional pain control. Sleep: Monitor and address as needed. Melatonin Bowel: Monitor and address as needed. Increased medications, scheduled. Continue to monitor Appetite: Monitor and address as needed. Mirtazapine Discharge planning: Pending therapy progress and care plan meeting. Will continue discussion with therapy team, SW, patient and family. Wednesday November 06, 2019 Restrictions/ Precautions: Falls, craniectomy (helmet on when out of bed), low bed, decreased sensation on left WB status: FWB Functional Hx: ADLs: Independent Cognition: Independent Mobility: No AD Working on having the family come in for family training. Family is adamant that they are not sending him back to a group home which is where he came to us from. Making some improvement with transfers, hopeful for ability to continue making improvement. Will discuss tomorrow. Working with the family we hope to reduce the level of caregiver burden and to educate them on how to safely provide care for Mr. Condon as he transitions back home. They will need all medical equipment including Ana lift, wheelchair, and a hospital bed (may change based on clinical pictures). Will discuss with the family when they arrive so that we can make the appropriate orders and not duplicate any mat erials that they currently have at home. Barriers to Discharge: Decreased mobility and ability to perform self care, balance deficits, weakness, craniectomy, left dominant hemiplegia, dysphagia Estimated Length of Stay: 1421 days Discharge Destination: Home with family DME: Wheelchair with high back, reclining, seatbelt, lateral stays, anti-tippers, pommel cushion. Patient has had a stroke and is flaccid on the left side. Sitting balance is reasonable for most times however he does have episodes of pushing and sliding. He also has a craniectomy and wears a helmet when out of bed. Due to cognitive issues as well as truncal strength and balance he would benefit from having a specialized wheelchair with an a higher back that reclines for safety. Because he does tend to slide out a pommel cushion would be preferable accompanied by a seatbelt. Lateral stays and anti-tippers will also be recommended from a safety standpoint. Patient does not have the ability to stand for prolonged periods of time without significant assistance. He cannot perform any MRADLs from a standing level and will need a wheelchair to perform these. He is unable to utilize a rolling walker or cane of any type at this point. He does have willingness and is able to utilize the wheelchair and has been using one on the rehab unit. Semi-electric hospital bed. Patient has CVA with a left-sided hemiplegia. At this point he is flaccid on the left side and we are approximately 3 months from the initial date of the stroke. He still requires intermittent tube feeds. He has poor bed mobility and will need assistance with positioning in order to avoid pressure sores. He can perform some transfers with assistance if the bed is at the proper height. Based on these criteria (patient requires tube feeds, reduction of pressure sores based on poor mobility, assistance with transfers with variable height) the patient does qualify for bed under Medicare rules. Ana lift. Although the patient does have the ability to perform transfers he is also intermittent with his abilities on a day-to-day basis. In order for the patient to be transferred safely from the bed to the wheelchair in order to allow for cleaning, toileting, changing of linens, getting out to appointments, etc. it would be safer from the family standpoint if they have the option of utilizing a Ana lift when he is having a bad day and unable to perform the transfers himself. Again this is a intermittent issue with him but he does have issues with this at least half of the week from our experience of working with him. Patient height 5 foot 8 inches. Patient weight 169 pounds.
[2019-11-04] MEDS: FAMOTIDINE 20 MG TAB FEEDTUBE SCH ×2 (08:57→21:38)
[2019-11-04] MEDS: FERROUS SULFATE 325 MG TAB PO SCH ×2 (08:57→21:38)
[2019-11-04] MEDS: AMANTADINE FEEDTUBE SCH ×2 (08:57→14:42)
[2019-11-04] MEDS: ASCORBIC ACID 500 MG TAB PO SCH ×2 (08:58→21:38)
[2019-11-04] MEDS: hydrALAZINE 100 MG TAB FEEDTUBE SCH ×3 (08:58→21:38)
[2019-11-04] MEDS: carvediloL 6.25 MG TAB FEEDTUBE SCH ×2 (08:58→21:40)
[2019-11-04] MEDS: amLODIPine 10 MG TAB FEEDTUBE SCH (08:58)
[2019-11-04] MEDS: LISINOPRIL 40 MG TAB FEEDTUBE SCH (08:59)
[2019-11-04] MEDS: LIDOCAINE 5% 1 EACH PATCH TD SCH (08:59)
[2019-11-04] MEDS: FOLIC ACID 1 MG TAB PO SCH (08:59)
[2019-11-04] MEDS: APIXABAN 5 MG TAB FEEDTUBE SCH ×2 (09:03→21:38)
[2019-11-04] MEDS: INSULIN LISPRO 100 UNIT/ML SUB-Q SCH ×4 (09:36→21:56)
[2019-11-04] MEDS: POLYETHYLENE GLYCOL 3350 17 GM POWDER FEEDTUBE SCH (09:36)
[2019-11-04] MEDS: MIRTAZAPINE 15 MG TAB FEEDTUBE SCH (21:38)
[2019-11-04] MEDS: MELATONIN 5 MG TAB PO SCH (21:38)
[2019-11-04] MEDS: INSULIN GLARGINE 100 UNITS/ML SUB-Q SCH (21:56)
[2019-11-05 07:00] LABS: Hematocrit 36.1 % (35.5-45.6); Hemoglobin 11.9 gm/dl (11.8-15.2); Mean Corpuscular HGB Conc 33 % (32-34); Mean Corpuscular Volume 76 fl (84-94); Platelet Count 138 K/mm3 (140-440); Red Blood Count 4.78 M/mm3 (3.65-5.03); Red Cell Distribution Width 16.7 % (13.2-15.2)
[2019-11-05 07:23] LABS: BUN/Creatinine Ratio 16; Blood Urea Nitrogen 18 mg/dL (9-20); Calcium 9.2 mg/dL (8.4-10.2); Hemolysis Index 5
[2019-11-05] MEDS: AMANTADINE FEEDTUBE SCH ×2 (08:24→16:00)
[2019-11-05] MEDS: FAMOTIDINE 20 MG TAB FEEDTUBE SCH ×2 (08:24→22:28)
[2019-11-05] MEDS: amLODIPine 10 MG TAB FEEDTUBE SCH (08:24)
[2019-11-05] MEDS: carvediloL 6.25 MG TAB FEEDTUBE SCH ×2 (08:24→22:27)
[2019-11-05] MEDS: FERROUS SULFATE 325 MG TAB PO SCH ×2 (08:24→22:28)
[2019-11-05] MEDS: ASCORBIC ACID 500 MG TAB PO SCH ×2 (08:25→22:29)
[2019-11-05] MEDS: LISINOPRIL 40 MG TAB FEEDTUBE SCH (08:25)
[2019-11-05] MEDS: hydrALAZINE 100 MG TAB FEEDTUBE SCH ×3 (08:25→20:42)
[2019-11-05] MEDS: INSULIN LISPRO 100 UNIT/ML SUB-Q SCH ×4 (08:25→22:35)
[2019-11-05] MEDS: LIDOCAINE 5% 1 EACH PATCH TD SCH (08:25)
[2019-11-05] MEDS: FOLIC ACID 1 MG TAB PO SCH (08:25)
[2019-11-05] MEDS: APIXABAN 5 MG TAB FEEDTUBE SCH ×3 (08:25→22:28)
--- NOTE | 2019-11-05 12:22 | Progress Note ---
Subjective Date of service: 11/05/19 Principal diagnosis: CVA Interval history: 64-year-old male who presented to [facility] on August 11 with acute onset of left-sided weakness. 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 Alteplase was given on 08/11. He developed delayed cerebral edema and hemorrhagic conversion. CT head showed large right-sided MCA territory infarct with scattered hyperdensities and cerebral edema with midline shift on August 13. August 15 there is an increase to 7 mm from the previous [address] with new petechial hemorrhages. Neurosurgery was consulted and ultimately required a decompressive hemicraniectomy on August 22. He continued to have increased bleeding prompting aspirin to be held on August 25. Patient was transferred from the ICU to neurology general floor on August 27. MRI brain on August 30 showed evolving large right MCA infarct with hemorrhagic transformation. Stable appearing midline shift. Hematoma superficial to craniotomy in the right temporalis muscle. On 08/30 he underwent Ultrasound Doppler venous left upper extremity showed a nonocclusive deep vein thrombosis in the left axillary vein and a thrombus within the superficial basilic vein. Ultrasound Doppler venous left lower extremity showed chronic DVT of the left common femoral vein on 09/04 for which an IVC filter was placed on September 06. PEG was placed on September 10 due to poor oral intake and dysphasia. EKG and telemetry monitoring showed paroxysmal atrial fibrillation. TTE showed an ejection fraction of 50 to 55% with severely dilated left atrium and impaired left ventricle relaxation. Patient was tolerating a bolus tube feed diet of Nutren 1.5 max of 5 cans/day with free water flushes 100 mils before and after each feed if the patient ate less than 25% bolus 2 cans, 50% bolus 1 can, greater than 50% no bolus. Stroke labs at outside hospital A1c 7.1, TSH 1.375, total cholesterol 198, LDL 132, RPR nonreactive, INR 1.1. Patient was transition to Eliquis as a secondary stroke prevention and anticoagulation for atrial fibrillation. He was taken off of aspirin due to risk of bleeding prior to leaving the hospital and going to the [facility]. The physicians at the hospital also made recommendation for considering a watchman device as an outpatient. 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 After the patient was stabilized he was transferred to subacute rehabilitation. Family visited our inpatient rehabilitation and was unhappy with his lack of progress at subacute and noted that he has been participating more with therapy but do not feel like he is getting the amount of therapy that he could truly benefit from. After discussion with the family as well as the facility and review of the past we opted to accept the patient to give him an opportunity to participate in a more intensive therapy schedule. Several discussions had with family on final disposition and ensuring that he would be going home regardless of how much recovery we were able to make. Patient was transferred to us from a subacute rehab where he has been since September 20. After the patient was medically stabilized they were transferred for further rehabilitation. All available medical records have been reviewed. Plan of care, prognosis, expectations, secondary stroke prevention, discharge planning was discussed with patient and family (2 daughters). Day prior to admission 48 minutes were spent reviewing all available records from the outside hospital as well as the [facility] facility in preparation for transfer of the patient to acute inpatient rehabilitation. Interval history: Patient is participating in therapy and making slow progress. Had a decent day today, was performing fairly well with standing but is still max assist for that activity. Taking rest breaks as needed. +BM, Afebrile. Denies palpitations, dyspnea, cough. No nausea/vomiting. Patient has variable interaction and responses to therapy from day-to-day. Family completed family training. Will look to discharge on Monday CVA: Patient making progress with therapy. Although his progress has been slow, he is improving in his ability to perform transfers and some ADLs and is now at the mod assist level typically but does have variability as stated above from day-to-day. Continue to monitor for worsening neurologic function. Continue secondary stroke prevention. No change in hemiplegia, no spasticity, no change in dysphagia. Mobility in bed improving somewhat. Left shoulder sublux: Pain better since starting Lidoderm, monitor. Discussed again that he needs to keep it supported. Poor carryover Hemicraniectomy: Sunken, helmet on when out of bed, well-healed continue to monitor, will need to follow-up with neurosurgeon at discharge. Constipation: reports of multiple loose stools NOT consistent with c diff. Only 1 BM charted each day and senna not held. Will d/c all scheduled bowel meds and monitor. Continue bowel meds and monitor for improvement. Paroxysmal atrial fibrillation: Denies palpitations, rate controlled, tolerating anticoagulation. Continue to monitor Hypertension: Blood pressures been in a good range. Continue to monitor Diabetes: Glucose checks have been reasonable. Continue to monitor and adjust insulin as needed based on oral intake. Anemia: Hemoglobin level has normalized, however he is still microcytic. Thrombocytopenia: Slightly low at 138. Will need to follow-up with PCP. No signs of bleeding Nutrition: Oral intake is variable. Utilizing PEG tube for nutritional supplementation if less than 50% of meal eaten. We will continue to monitor and continue appetite stimulant.Patient does state that he is eating also states that he does not like hospital food. Have been supplementing as needed with tube feeds however he also does not want these. Cognition: Continue amantadine and monitor for improvement. Patient seems alert and interactive today. All records, vitals, labs and medications were reviewed. No other issues per patient, nursing or therapy. Objective - Exam Narrative Exam: MUSCULOSKELETAL SPECIALTY EXAM CONSTITUTIONAL: Well developed, well nourished, appropriately groomed. LEFT hand dominant. Head: Right craniectomy site sunken , soft, helmet off during exam while he was sitting in wheelchair (reminded patient to keep helmet on anytime he is out of bed) RESPIRATORY: Clear to auscultation bilaterally, no increased work of breathing CARDIOVASCULAR: Regular Rate/ Rhythm, no swelling, edema or tenderness in BUE or BLE. All extremities warm. GI: + bowel sounds, soft, NTTP, nondistended. PEG tube present, slight blood on bandage INTEGUMENTARY: Normal, no lesion, rash, masses or bruising noted in extremities. MUSCULOSKELETAL: Left shoulder subluxation, otherwise BUE and BLE normal without defect, crepitus, subluxation, effusion, arthritic changes or TTP. R 4+/5 L 0/5 - still no return of function on the left unfortunately ROM decreased on left, normal on right Tone flaccid on left, normal on right NEURO: CN II : Right visual colmenares full to confrontation, left blind CN III, IV, : EOMI on the right but right eye does preferentially veer towards the lateral aspect CN V : Facial sensation intact decreased on left CN VII : Slight left facial droop CN XI : Left shoulder shrug absent Sensation impaired on left with extinction, normal on right No tremor noted in 4 extremities. Naming and repetition intact. Follows 2 step commands. Aphasia not appreciated Dysarthria not appreciated Dysphagia present Neglect to left side with activity, right gaze preference. Does recognize the left and address it, just can not attend to it. POSTURE and GAIT: Sitting posture improving. Gait deferred. Sitting balance improving but he still has periods of pushing. Transfers and ability to stand have improved overall, but inconsistent. PSYCH: Alert, oriented x3, affect appears flattened. Insight appears mostly intact, but does have cognitive/memory deficits. - Constitutional Vitals: Vital Signs - 12hr 11/05/19 11/05/19 11/05/19 04:20 07:24 08:24 Temperature 97.8 F 98.7 F Pulse Rate 65 63 63 Respiratory 20 18 Rate Respiratory Rate [Left Upper Shoulder] Blood Pressure 137/66 137/66 O2 Sat by Pulse 97 97 Oximetry 11/05/19 10:00 Temperature Pulse Rate Respiratory Rate Respiratory 16 Rate [Left Upper Shoulder] Blood Pressure O2 Sat by Pulse Oximetry - Allied health notes Allied health notes reviewed: nursing, PT, ST, OT FIMS assessment as documented by PT/OT/ST: Social interaction/Memory/Problem solving Social Interaction FIM Score 2. Maximal Assistance (Appropriate 25-49% or needs restraint.) Memory FIM Score 3. Moderate Assistance (Recognizes and remembers 50-74%.) Problem Solving FIM Score 2. Maximal Assistance (Solves problems 25-49% or needs restraint.) Transfers Mode of Locomotion: Wheelchair Bed/Chair/Wheelchair Transfers 3. Moderate Assistance (Patient = 50% or more. FIM Score Some lifting.) Eating Eating FIM Score 2. Maximal Assistance (Patient = 25% or more) Dressing-Upper body Upper Body Dressing Device Concession Worker Patient retrieves clothing No items: Patient applies/removes UE No prosthesis or orthosis: Upper Body Dressing FIM Score 2. Maximal Assistance (Patient = 25% or more) Dressing-lower body Patient retrieves clothing No items: Patient applies/removes LE No prosthesis or orthosis: Lower Body Dressing FIM Score 2. Maximal Assistance (Patient = 25% or more) - Labs CBC & Chem 7: 11/05/19 06:39 11/05/19 06:39 Labs: Laboratory Results - last 72 hr 11/02/19 11/02/19 11/03/19 16:09 22:33 05:46 WBC RBC Hgb Hct MCV MCH MCHC RDW Plt Count Sodium Potassium Chloride Carbon Dioxide Anion Gap BUN Creatinine Estimated GFR BUN/Creatinine Ratio Glucose POC Glucose 124 H 211 H 111 H Calcium 11/03/19 11/03/19 11/03/19 07:30 11:19 16:17 WBC RBC Hgb Hct MCV MCH MCHC RDW Plt Count Sodium Potassium Chloride Carbon Dioxide Anion Gap BUN Creatinine Estimated GFR BUN/Creatinine Ratio Glucose POC Glucose 169 H 127 H 132 H Calcium 11/03/19 11/04/19 11/04/19 21:07 07:33 11:35 WBC RBC Hgb Hct MCV MCH MCHC RDW Plt Count Sodium Potassium Chloride Carbon Dioxide Anion Gap BUN Creatinine Estimated GFR BUN/Creatinine Ratio Glucose POC Glucose 178 H 101 163 H Calcium 11/04/19 11/04/19 11/05/19 16:42 22:07 06:39 WBC 5.8 RBC 4.78 Hgb 11.9 Hct 36.1 MCV 76 L MCH 25 L MCHC 33 RDW 16.7 H Plt Count 138 L Sodium Potassium Chloride Carbon Dioxide Anion Gap BUN Creatinine Estimated GFR BUN/Creatinine Ratio Glucose POC Glucose 170 H 130 H Calcium 11/05/19 11/05/19 11/05/19 06:39 07:37 11:20 WBC RBC Hgb Hct MCV MCH MCHC RDW Plt Count Sodium 141 Potassium 3.7 Chloride 103.8 Carbon Dioxide 22 Anion Gap 19 BUN 18 Creatinine 1.1 Estimated GFR > 60 BUN/Creatinine Ratio 16 Glucose 141 H POC Glucose 133 H 176 H Calcium 9.2 Assessment and Plan CVA, MCA, embolic with hemorrhagic conversion left dominant hemiplegia: Flaccid left side. Continue secondary stroke prevention (antithrombotic, statin (goal LDLC <70), BP control (goal less than 140/90), GLU control (goal A1c <7), and lifestyle modification). Monitor for recurrent stroke or post-stroke recrudescence. Continue neuromotor therapy as above. Family training when available. Monitor for post-stroke depression, cognitive deficits, seizure, dysphagia, apha kathy, shoulder-hand syndrome, sensory deficits, spasticity, bowel/bladder deficits, sleep disturbance, vision deficits, pressure sores and DVT. Prognosis for recovery and secondary stroke prevention discussed with patient and family. Follow-up with neurology. No driving until cleared by neurologist. Paroxysmal atrial fibrillation: Continue rate control and anticoagulation. Adjust medications as needed. Monitor for palpitations, dyspnea, lightheadedness, chest pain, fatigue. EKG as needed. Diastolic dysfunction: Monitor for any exacerbation of diastolic dysfunction. Hypertension: Continue medications. Monitor blood pressure every 4 hours while awake. Adjust medications as needed for normotension and hold for hypotension. Diabetes type 2: Continue current diet. Monitor blood glucose before meals and at bedtime. Sliding scale insulin. Adjust medications as needed for normogl ycemia. Skin checks per nursing to identify any new wounds. Left upper extremity and left lower extremity DVT: Continue Eliquis. Monitor for any signs of worsening condition. Patient does have a IVC filter installed as well. Dysphagia: Medications and supplemental feeds through PEG. Continue current diet (dysphasia mechanical softchopped with regular thin liquids.). 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 Slight bleeding at PEG this AM, looks like it was tuged, monitor Shoulder subluxation: Continue strengthening exercises for improvement of shoulder subluxation. Arm tray while in wheelchair. Prop the arm on pillows including hand for elevation while in bed. Consider kinesiotaping and/or e- stim. Lidoderm Anemia: Microcytic. Replace iron, folate, vitamin C. monitor. Hemoglobin has recovered however still very microcytic Cognition: Continue amantadine at breakfast as well as lunch. Patient was previously getting this every 12 hours we should see a little bit better tolerance for it scheduled appropriately. Monitor for improvement. Supportive care and therapy. Family involvement as available. Continue reminders throug hout therapy and the day to ensure patient safety. Altered sensation on the left: Monitor for skin wounds. Improve patient's ability to self monitor placement of limbs to avoid injury. Medication as needed for painful paresthesias. Poor nutritional intake: Check nutrition labs including pre-albumin (0.211 slightly better than normal). Monitor oral intake and weights. Patient is on appetite stimulant, continue Remeron. TF for <50% eaten. Seems to be eating more food from home. Still, intermittent oral intake. Will recommend continuing tube feeds as needed for supplement. Oral supplement also started. Right craniectomy: Currently sunken with very slight CSF collection at the base of the craniectomy. Monitor for any changes in volume and notified neurosurgeon if this occurs. Helmet on anytime out of bed. When out of bed with helmet on need to monitor periodically for swelling. Follow-up with neurosurgeon. ADL dysfunction: OT will work on improving ability to perform ADLs (including assistive devices) to increase independence and decrease caregiver burden and improve functional transfers and mobility training. Difficulty walking: PT will work on gait training and proper use of assistive devices and advance as appropriate to use of stairs and outside ambulation on un even surfaces. Unsteadiness on feet: PT will work on improving static and dynamic sitting and standing balance as well as proper use of assistive devices to decrease risk of falls. Abnormality of gait: PT will work to improve safety and efficiency of gait through neuromotor training and gait training along with instruction on proper use of assistive devices. Muscle weakness: PT & OT will work on strengthening exercises to improve functional strength including mixture of closed and open kinetic chain exercises. Debility: PT & OT will work on improving overall functional status to improve pa rticipation with ADLs, mobility and social involvement. Fatigue: PT & OT will work on improving endurance through aerobic exercises and therapeutic activity while monitoring patients tolerance for activity and vital signs as needed. DVT ppx: Eliquis for atrial fibrillation Pain: Continue physical modalities in therapy and pain medications as needed to achieve functional pain control. Sleep: Monitor and address as needed. Melatonin Bowel: Monitor and address as needed. Increased medications, scheduled. Continue to monitor Appetite: Monitor and address as needed. Mirtazapine Discharge planning: Pending therapy progress and care plan meeting. Will continue discussion with therapy team, SW, patient and family. Wednesday November 06, 2019 Restrictions/ Precautions: Falls, craniectomy (helmet on when out of bed), low bed, decreased sensation on left WB status: FWB Functional Hx: ADLs: Independent Cognition: Independent Mobility: No AD Working on having the family come in for family training. Family is adamant that they are not sending him back to a half-way which is where he came to us from. Making some improvement with transfers, hopeful for ability to continue making improvement. Will discuss tomorrow. Working with the family we hope to reduce the level of caregiver burden and to educate them on how to safely provide care for Mr. Condon as he transitions back home. They will need all medical equipment including Ana lift, wheelchair, and a hospital bed (may change based on clinical pictures). Will discuss with the family when they arrive so that we can make the appropriate orders and not duplicate any materials that they currently have at home. Barriers to Discharge: Decreased mobility and ability to perform self care, balance deficits, weakness, craniectomy, left dominant hemiplegia, dysphagia Estimated Length of Stay: 1421 days Discharge Destination: Home with family DME: Wheelchair with high back, reclining, seatbelt, lateral stays, anti-tippers, pommel cushion. Patient has had a stroke and is flaccid on the left side. Sitting balance is reasonable for most times however he does have episodes of pushing and sliding. He also has a craniectomy and wears a helmet when out of bed. Due to cognitive issues as well as truncal strength and balance he would benefit from having a specialized wheelchair with an a higher back that reclines for safety. Because he does tend to slide out a pommel cushion would be preferable accompanied by a seatbelt. Lateral stays and anti-tippers will also be recommended from a safety standpoint. Patient does not have the ability to stand for prolonged periods of time without significant assistance. He cannot perform any MRADLs from a standing level and will need a wheelchair to perform these. He is unable to utilize a rolling walker or cane of any type at this point. He does have willingness and is able to utilize the wheelchair and has been using one [facility] rehab [facility]. Patient has CVA with a left-sided hemiplegia. At this point he is flaccid on the left side and we are approximately 3 months from the initial date of the stroke. He still requires intermittent tube feeds. He has poor bed mobility and will need assistance with positioning in order to avoid pressure sores. He can perform some transfers with assistance if the bed is at the proper height. Based on these criteria (patient requires tube feeds, reduction of pressure sores based on poor mobility, assistance with transfers with variable height) the patient does qualify for bed under Medicare rules. Ana lift. Although the patient does have the ability to perform transfers he is also intermittent with his abilities on a day-to-day basis. In order for the patient to be transferred safely from the bed to the wheelchair in order to allow for cleaning, toileting, changing of linens, getting out to appointments, etc. it would be safer from the family standpoint if they have the option of utilizing a Ana lift when he is having a bad day and unable to perform the transfers himself. Again this is a intermittent issue with him but he does have issues with this at least half of the week from our experience of working with him. Patient height 5 foot 8 inches. Patient weight 169 pounds. Patient will likely need tube feeding for greater than 90 days. We are utili zing a bolus of 2 cans if less than 50% of a meal is eaten. Water flush 100 ml pre-and post bolus.
[2019-11-05] MEDS: MIRTAZAPINE 15 MG TAB FEEDTUBE SCH (20:43)
[2019-11-05] MEDS: MELATONIN 5 MG TAB PO SCH (20:43)
[2019-11-05] MEDS: INSULIN GLARGINE 100 UNITS/ML SUB-Q SCH (22:23)
[2019-11-06] MEDS: LIDOCAINE 5% 1 EACH PATCH TD SCH (08:55)
[2019-11-06] MEDS: FOLIC ACID 1 MG TAB PO SCH (08:56)
[2019-11-06] MEDS: LISINOPRIL 40 MG TAB FEEDTUBE SCH (08:56)
[2019-11-06] MEDS: carvediloL 6.25 MG TAB FEEDTUBE SCH (08:56)
[2019-11-06] MEDS: ASCORBIC ACID 500 MG TAB PO SCH (08:57)
[2019-11-06] MEDS: amLODIPine 10 MG TAB FEEDTUBE SCH (08:57)
[2019-11-06] MEDS: hydrALAZINE 100 MG TAB FEEDTUBE SCH ×2 (08:57→14:30)
[2019-11-06] MEDS: FAMOTIDINE 20 MG TAB FEEDTUBE SCH (08:57)
[2019-11-06] MEDS: AMANTADINE FEEDTUBE SCH ×2 (08:58→14:31)
[2019-11-06] MEDS: APIXABAN 5 MG TAB FEEDTUBE SCH (09:07)
[2019-11-06] MEDS: INSULIN LISPRO 100 UNIT/ML SUB-Q SCH ×2 (09:10→14:23)
[2019-11-06] MEDS: FERROUS SULFATE 325 MG TAB PO SCH (09:20)
--- NOTE | 2019-11-06 11:17 | Discharge Summary ---
Providers - Providers Date of Admission: 10/09/19 15:31 Date of discharge: 11/06/19 Attending physician: CHRISTI ARTEAGA III, MD 10/09/19 15:31 Consult to Dietitian/Nutrition [CONS] Routine Physician Instructions: Reason For Exam: Reason for Consult: Poor oral intake Occupational Therapy Evaluate and Treat [CONS] Routine Comment: Reason For Exam: ADL dysfunction Physical Therapy Evaluation and Treat [CONS] Routine Comment: Reason For Exam: Mobility Dysfunction Speech Therapy Evaluation and Treat [CONS] Routine Reason For Exam: CVA, Dysphagia, Cognition Primary care physician: DIETITIAN TEACHER Hospitalization Reason for admission: CVA Condition: Fair Hospital course: 64-year-old male who presented to [place] [facility] on August 11 with acute onset of left-sided weakness. 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 Alteplase was given on 08/11. He developed delayed cerebral edema and hemorrhagic conversion. CT head showed large right-sided MCA territory infarct with scattered hyperdensities and cerebral edema with midline shift on August 13. August 15 there is an increase to 7 mm from the previous [address] with new petechial hemorrhages. Neurosurgery was consulted and ultimately required a decompressive hemicraniectomy on August 22. He continued to have increased bleeding prompting aspirin to be held on August 25. Patient was transferred from the ICU to neurology general floor on August 27. MRI brain on August 30 showed evolving large right MCA infarct with hemorrhagic transformation. Stable appearing midline shift. Hematoma superficial to craniotomy in the right temporalis muscle. On 08/30 he underwent Ultrasound Doppler venous left upper extremity showed a nonocclusive deep vein thrombosis in the left axillary vein and a thrombus within the superficial basilic vein. Ultrasound Doppler venous left lower extremity showed chronic DVT of the left common femoral vein on 09/04 for which an IVC filter was placed on September 06. PEG was placed on September 10 due to poor oral intake and dysphasia. EKG and telemetry monitoring showed paroxysmal atrial fibrillation. TTE showed an ejection fraction of 50 to 55% with severely dilated left atrium and impaired left ventricle relaxation. Patient was tolerating a bolus tube feed diet of Nutren 1.5 max of 5 cans/day with free water flushes 100 mils before and after each feed if the patient ate less than 25% bolus 2 cans, 50% bolus 1 can, greater than 50% no bolus. Stroke labs at outside hospital A1c 7.1, TSH 1.375, total cholesterol 198, LDL 132, RPR nonreactive, INR 1.1. Patient was transition to [facility] as a secondary stroke prevention and anticoagulation for atrial fibrillation. He was taken off of aspirin due to risk of bleeding prior to leaving the hospital and going to the nursing home facility. The physicians at the hospital also made recommendation for considering a watchman device as an outpatient. 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 After the patient was stabilized he was transferred to subacute rehabilitation. Family visited our inpatient rehabilitation and was unhappy with his lack of progress at subacute and noted that he has been participating more with therapy but do not feel like he is getting the amount of therapy that he could truly benefit from. After discussion with the family as well as the facility and review of the past we opted to accept the patient to give him an opportunity to participate in a more intensive therapy schedule. Several discussions had with family on final disposition and ensuring that he would be going home regardless of how much recovery we were able to make. Patient was transferred to us from a subacute rehab where he has been since September 20. After the patient was medically stabilized they were transferred for further rehabilitation. All available medical records have been reviewed. Plan of care, prognosis, expectations, secondary stroke prevention, discharge planning was discussed with patient and family (2 daughters). Day prior to admission 48 minutes were spent reviewing all available records from the outside hospital as well as the nursing home facility in preparation for transfer of the patient to acute inpatient rehabilitation. 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 Although his progress has been slow, he is improving in his ability to perform transfers and some ADLs and is now at the mod assist level typically but does have variability as stated above from day-to-day. Continue secondary stroke prevention (antithrombotic, statin (goal LDLC <70), BP control (goal less than 140/90), GLU control (goal A1c <7), and lifestyle modification). Monitor for recurrent stroke or post-stroke recrudescence. Prognosis for recovery and secondary stroke prevention discussed with patient and family. Follow-up with neurology. No driving until cleared by neurologist. Paroxysmal atrial fibrillation: Continue rate control and anticoagulation. Adjust medications as needed. Monitor for palpitations, dyspnea, lightheade dness, chest pain, fatigue. Diastolic dysfunction: No exacerbation of diastolic dysfunction during this admission. Hypertension: Continue medications. Blood pressure has been fairly well contro lled on current medications. Diabetes type 2: Continue current diet. Monitor blood glucose before meals and at bedtime. Sliding scale insulin. Adjust medications as needed for normoglycemia. Glucose levels were within a reasonable range, variable eating and types of food complicated the ability to get him into a tight control. Left upper extremity and left lower extremity DVT: Continue Eliquis. Monitor for any signs of worsening condition. Patient does have a IVC filter installed as well. No worsening symptoms noted during this admission. Dysphagia: Medications and supplemental feeds through PEG. Continue current diet (dysphasia mechanical softchopped with regular thin liquids.). STRATEGIC PLANNING MANAGER to monitor and advance diet as able, and perform FEES, MBSS or e-stim as needed. Shoulder subluxation: Continue strengthening exercises for improvement of shoulder subluxation. Arm tray while in wheelchair. Prop the arm on pillows including hand for elevation while in bed. Lidoderm proved helpful for pain relief. Unfortunately we did not get any return of function for this extremity. Continue propping and sling to reduce swelling. Anemia: Microcytic. Replace iron, folate, vitamin C. monitor. Hemoglobin has recovered however still very microcytic. Hemoglobin at last check on November 04 was 11.9. Cognition: Continue amantadine at breakfast and lunch. Patient was previously getting this every 12 hours we should see a little bit better tolerance for it scheduled appropriately. Monitor for improvement. Supportive care and therapy. Family involvement as available. Continue reminders throughout therapy and the day to ensure patient safety. Altered sensation on the left: Monitor for skin wounds. Improve patient's ability to self monitor placement of limbs to avoid injury. Medication as needed for painful paresthesias. Patient does have decreased attention to the left side. Poor nutritional intake: Check nutrition labs including pre-albumin (0.211 slightly better than normal). Monitor oral intake and weights. Patient is on appetite stimulant, continue Remeron. TF for <50% eaten. Seems to be eating more food from home. Still, intermittent oral intake. Will recommend continuing tube feeds as needed for supplement. Oral supplement also started. Right craniectomy: Currently sunken . Monitor for any changes in volume and notified neurosurgeon if this occurs. Helmet on anytime out of bed. When out of bed with helmet on, need to monitor periodically for swelling. Follow-up with neurosurgeon. From a therapy standpoint, patient was max assist for eating, dressing, toileting. He is unable to ambulate at this time but is able to maneuver wheelchair for approximately 100 feet with min assist.. He is performing transfers with mod assist. Interaction and participation has been variable from day-to-day with therapy. Disposition: DC/TX- HOME UNDER HOME TH Time spent for discharge: 42min Core Measure Documentation - Palliative Care Palliative Care/ Comfort Measures: Not Applicable - Core Measures Any of the following diagnoses?: DVT/PE, stroke - VTE Discharge Requirements Deep Vein Thrombosis/Pulmonary Embolism Present on Admission: Yes Has pt received <5 days of overlap therapy or INR<2.0: No Anticoagulant overlap therapy prescribed at discharge: Yes - Stroke Discharge Requirements Statin for LDL = or >70 mg/dl on DC: Yes Anticoag for atrial fib/atrial flutter: Yes Antithrombotic for ischemic stroke: No Reason for no antithrombotic on DC: Medical Contraindication Stroke additional comments: Patient on Eliquis for atrial fibrillation and strok e prevention as well as DVT. ASA d/c'd at OSH Exam - Physical Exam Narrative exam: MUSCULOSKELETAL SPECIALTY EXAM CONSTITUTIONAL: Well developed, well nourished, appropriately groomed. LEFT hand dominant. Head: Right craniectomy site sunken , soft. RESPIRATORY: Clear to auscultation bilaterally, no increased work of breathing CARDIOVASCULAR: Regular Rate/ Rhythm, no swelling, edema or tenderness in BUE or BLE. All extremities warm. GI: + bowel sounds, soft, NTTP, nondistended. PEG tube present INTEGUMENTARY: Normal, no lesion, rash, masses or bruising noted in extremities. MUSCULOSKELETAL: Left shoulder subluxation, otherwise BUE and BLE normal without defect, crepitus, subluxation, effusion, arthritic changes or TTP. R 4+/5 L 0/5 - still no return of function on the left unfortunately ROM decreased on left, normal on right Tone flaccid on left, normal on right NEURO: CN II : Right visual colmenares full to confrontation, left blind CN III, IV, : EOMI on the right but right eye does preferentially veer towards the lateral aspect CN V : Facial sensation intact decreased on left CN VII : Slight left facial droop CN XI : Left shoulder shrug absent Sensation impaired on left with extinction, normal on right No tremor noted in 4 extremities. Naming and repetition intact. Follows 2 step commands. Aphasia not appreciated Dysarthria not appreciated Dysphagia present Neglect to left side with activity, right gaze preference. Does recognize the left and address it, just can not attend to it. POSTURE and GAIT: Sitting posture improving. Gait deferred. Sitting balance improving but he still has periods of pushing. Transfers and ability to stand have improved overall, but inconsistent. PSYCH: Alert, oriented x3, affect appears flattened. Insight appears mostly intact, but does have cognitive/memory deficits. - Constitutional Vitals: Temp Pulse Resp BP Pulse Ox 98.6 F 72 18 155/72 97 11/06/19 07:45 11/06/19 08:57 11/06/19 07:45 11/06/19 08:57 11/06/19 07:45 - Allied Health Allied health notes reviewed: PT, ST, OT Plan Activity: up only with assistance, fall precautions, other (Helmet on at all ti mes when out of bed) Weight Bearing Status: Full Weight Bearing Diet: other (Cardiac diet/consistent carb, mechanical soft with 2 cans Glucerna 1.2 bolused if less than 50% of meals are eaten followed by 100 mL flush pre-and post bolus) Special Instructions: record daily BP diary, record blood sugar diary, physical therapy, occupational therapy, home health RN Durable Medical Equipment Needed Upon Discharge: Wheelchair, Hospital Bed, other (Ana lift) Plan of Treatment: Patient will need to follow-up with previous providers at [facility] including: Vascular for monitoring of DVT as well as IVC filter. Neurosurgery for monitoring of johan-craniectomy as well as replacement of cranial flap. Neurology for monitoring of CVA. Patient will also need to follow-up with PCP for further monitoring of medications, refills, hypertension, diabetes and other general medical issues. Follow up with cardiology for atrial fibrillation. At this point the PEG tube can be removed at any time that it is deemed not to be currently needed. We are opting to leave it in due to the patient's decreased oral intake at times and have been using it for nourishment and some medications. Once his outpatient providers feel completely safe that he will not need it any longer it may be removed at any time. Follow up with: PRIMARY CARE, [Primary Care Provider] - 7 Days Prescriptions: Insulin Glargine [Lantus VIAL] 10 units SUB-Q QHS #2 bottle AtorvaSTATin [Lipitor] 80 mg FEEDTUBE QHS #30 tablet Mirtazapine [Remeron 15mg TAB] 15 mg FEEDTUBE QHS #30 tablet amLODIPine 10 mg FEEDTUBE QDAY #30 tablet hydrALAZINE [Apresoline TAB] 100 mg FEEDTUBE TID #90 tab carvediloL [Coreg] 6.25 mg FEEDTUBE BID #60 tablet Apixaban [Eliquis] 5 mg FEEDTUBE Q12HR #60 tablet Ferrous Sulfate [Feosol 325 MG tab] 325 mg PO BID #60 tablet Folic Acid [Folvite] 1 mg PO QDAY #30 tablet Insulin Aspart (Nf) [NovoLOG Flexpen] See Protocol SQ AC #2 pen Famotidine [Pepcid] 20 mg FEEDTUBE BID #60 tablet Amantadine [Symmetrel] 100 mg FEEDTUBE BIDBL #600 ml Ascorbic Acid [Vitamin C] 500 mg PO BID #60 tablet lisinopriL [Zestril TAB] 40 mg FEEDTUBE QDAY #30 tablet
[2019-11-06] MEDS: traMADol 50 MG TAB FEEDTUBE PRN (14:30)
[2019-11-06 18:24] VITALS: BP 136/72
== END 2019-11-06 19:00 | disposition home health service (06) | DRG 56 ==
LOC: UNDOADMIN 12:27 → 3A 12:27 → 3B 15:31
PROVIDERS: ADMIT Physical Medicine & Rehabilitation; ATTEND Physical Medicine & Rehabilitation
DX: I69.354 Hemiplegia and hemiparesis following cerebral infarction affecting left non-dominant side (principal); I63.411 Cerebral infarction due to embolism of right middle cerebral artery; I82.622 Acute embolism and thrombosis of deep veins of left upper extremity; I82.402 Acute embolism and thrombosis of unspecified deep veins of left lower extremity; E11.9 Type 2 diabetes mellitus without complications; D64.9 Anemia, unspecified; R13.10 Dysphagia, unspecified; I10 Essential (primary) hypertension; S43.003A Unspecified subluxation of unspecified shoulder joint, initial encounter; I48.0 Paroxysmal atrial fibrillation; X58.XXXA Exposure to other specified factors, initial encounter; I69.321 Dysphasia following cerebral infarction; Z79.899 Other long term (current) drug therapy; Z79.4 Long term (current) use of insulin; Z79.51 Long term (current) use of inhaled steroids; Y93.89 Activity, other specified; Y92.89 Other specified places as the place of occurrence of the external cause; Y99.8 Other external cause status
CPT/HCPCS: 36415; 74018; 80048; 80053; 82607; 82728; 82747; 82962; 83550; 83735; 84100; 84134; 85025; 85027; 87116; 94640; G0378; A9270-GY; G0515-GN; J0360; J1815; Q0162